=== PATIENT | female | born 1950 | race Caucasian/White ===

== ENCOUNTER → 2016-11-28 | Outpatient (CLI) | payer MEDICARE, OTHER ==
[~2016-11-28] MED LIST: ALLO100T; ATOR1TAB21; BAYETAB2 PO; CEPH500C; CLEO300C2 PO; DOXY100C37 PO; LISI-538; LOSA100T36; METH2.5TA; OMEP40CA2; PRED20TA; ZETI10TA30; ZYRT10TA2
[2016-11-28 18:40] LABS: BASO # 0.1 K/mm3 (0.0-0.2); BASO % 0.9 % (0.0-1.0); EOS # 0.5 K/mm3 (0.0-0.50); EOS % 5.1 % (0.0-3.0); LYMPH # 2.7 K/mm3 (1.5-4.5); LYMPH % 28.3 % (24.0-44.0); MEAN CORPUSCULAR HEMOGLOBIN 29.5 pg (27.0-33.0); MEAN CORPUSCULAR HGB CONC 32.7 g/dl (32.0-36.5); MEAN CORPUSCULAR VOLUME 90.3 fl (80.0-96.0); MONO # 0.7 K/mm3 (0.0-0.8); MONO % 7.5 % (0.0-5.0); NEUTROPHILS # 5.1 K/mm3 (1.8-7.7); NEUTROPHILS % 56.5 % (36.0-66.0); RED CELL DISTRIBUTION WIDTH 14.4 % (11.5-14.5); WHITE BLOOD COUNT 8.9 K/mm3 (4.0-10.0)
[2016-11-28 19:34] LABS: ALBUMIN 3.5 GM/DL (3.2-5.2); ALBUMIN/GLOBULIN RATIO 0.97 (1.00-1.93); ALKALINE PHOSPHATASE 93 U/L (45-117); ALT/SGPT 22 U/L (12-78); ANION GAP 9 MEQ/L (8-16); AST/SGOT 19 U/L (15-37); BILIRUBIN,TOTAL 0.3 MG/DL (0.2-1.0); BLOOD UREA NITROGEN 13 MG/DL (7-18); CALCIUM LEVEL 8.6 MG/DL (8.8-10.2); CARBON DIOXIDE LEVEL 25 MEQ/L (21-32); CHLORIDE LEVEL 110 MEQ/L (98-107); CREATININE FOR GFR 0.96 MG/DL (0.55-1.02); GLOMERULAR FILTRATION RATE > 60.0 (>45); GLUCOSE, FASTING 118 MG/DL (80-110); SODIUM LEVEL 144 MEQ/L (136-145); TOTAL PROTEIN 7.1 GM/DL (6.4-8.2)
== END ==
LOC: M WUC 14:29
PROVIDERS: ATTEND Internal Medicine
DX: M45.9 Ankylosing spondylitis of unspecified sites in spine (principal)

== ENCOUNTER → 2016-12-22 | Outpatient (CLI) | payer MEDICARE, OTHER ==
[2016-12-22 20:17] LABS: CALCIUM LEVEL 8.6 MG/DL (8.8-10.2); GLOMERULAR FILTRATION RATE 58.7 (>45); POTASSIUM SERUM 4.2 MEQ/L (3.5-5.1)
== END ==
LOC: M WUC 16:28
PROVIDERS: ATTEND Physician Assistant
DX: N39.0 Urinary tract infection, site not specified (principal)

== ENCOUNTER → 2016-12-26 | Outpatient (CLI) | payer MEDICARE, OTHER ==
[2016-12-26 20:01] LABS: ALBUMIN 3.5 GM/DL (3.2-5.2); ALBUMIN/GLOBULIN RATIO 0.95 (1.00-1.93); BILIRUBIN,TOTAL 0.2 MG/DL (0.2-1.0); CALCIUM LEVEL 8.1 MG/DL (8.8-10.2); CREATININE FOR GFR 1.19 MG/DL (0.55-1.02); POTASSIUM SERUM 3.8 MEQ/L (3.5-5.1); TOTAL PROTEIN 7.2 GM/DL (6.4-8.2)
[2016-12-26 20:06] LABS: BASO # 0.1 K/mm3 (0.0-0.2); BASO % 0.8 % (0.0-1.0); EOS # 0.5 K/mm3 (0.0-0.50); EOS % 5.2 % (0.0-3.0); LYMPH # 2.7 K/mm3 (1.5-4.5); LYMPH % 26.6 % (24.0-44.0); MEAN CORPUSCULAR HEMOGLOBIN 30.4 pg (27.0-33.0); MEAN CORPUSCULAR HGB CONC 33.4 g/dl (32.0-36.5); MONO # 0.8 K/mm3 (0.0-0.8); MONO % 7.8 % (0.0-5.0); NEUTROPHILS # 5.7 K/mm3 (1.8-7.7); NEUTROPHILS % 56.4 % (36.0-66.0); RED CELL DISTRIBUTION WIDTH 14.9 % (11.5-14.5); WHITE BLOOD COUNT 10.1 K/mm3 (4.0-10.0)
== END ==
LOC: M WUC 17:28
PROVIDERS: ATTEND Internal Medicine
DX: M45.9 Ankylosing spondylitis of unspecified sites in spine (principal)

== ENCOUNTER → 2017-01-04 | Outpatient (CLI) | payer MEDICARE, OTHER ==
[2017-01-04 17:35] LABS: BASO # 0.1 K/mm3 (0.0-0.2); BASO % 0.7 % (0.0-1.0); EOS # 0.5 K/mm3 (0.0-0.50); EOS % 4.6 % (0.0-3.0); LYMPH % 26.2 % (24.0-44.0); MEAN CORPUSCULAR HEMOGLOBIN 30.1 pg (27.0-33.0); MEAN CORPUSCULAR HGB CONC 32.7 g/dl (32.0-36.5); MONO # 0.8 K/mm3 (0.0-0.8); MONO % 6.9 % (0.0-5.0); NEUTROPHILS # 6.9 K/mm3 (1.8-7.7); NEUTROPHILS % 59.7 % (36.0-66.0); WHITE BLOOD COUNT 11.6 K/mm3 (4.0-10.0)
== END ==
LOC: M WUC 16:16
PROVIDERS: ATTEND Internal Medicine
DX: M35.01 Sjogren syndrome with keratoconjunctivitis (principal)

== ENCOUNTER → 2017-01-23 | Outpatient (CLI) | payer MEDICARE, OTHER ==
[2017-01-23 17:38] LABS: BASO # 0.1 10^3/uL (0.0-0.2); BASO % 0.8 % (0.0-1.0); EOS # 0.5 10^3/uL (0.0-0.50); EOS % 5.6 % (0.0-3.0); IMMATURE GRANULOCYTE % 0.4 % (0-0); LYMPH # 2.6 10^3/uL (1.5-4.5); LYMPH % 26.8 % (24.0-44.0); MEAN CORPUSCULAR HEMOGLOBIN 28.9 pg (27.0-33.0); MONO % 11.4 % (0.0-5.0); NEUTROPHILS # 5.3 10^3/uL (1.8-7.7); RED CELL DISTRIBUTION WIDTH 16.4 % (11.5-14.5); WHITE BLOOD COUNT 9.6 10^3/uL (4.0-10.0)
[2017-01-23 17:49] LABS: MONO # 1.1 10^3/uL (0.0-0.8)
[2017-01-23 19:23] LABS: ALBUMIN 3.6 GM/DL (3.2-5.2); ALBUMIN/GLOBULIN RATIO 1.06 (1.00-1.93); BILIRUBIN,TOTAL 0.3 MG/DL (0.2-1.0); CALCIUM LEVEL 8.6 MG/DL (8.8-10.2); CREATININE FOR GFR 1.02 MG/DL (0.55-1.02); GLOMERULAR FILTRATION RATE 57.4 (>45); POTASSIUM SERUM 3.9 MEQ/L (3.5-5.1)
== END ==
LOC: M WUC 15:09
PROVIDERS: ATTEND Internal Medicine
DX: M45.9 Ankylosing spondylitis of unspecified sites in spine (principal)

== ENCOUNTER → 2017-02-02 | Outpatient (CLI) | payer MEDICARE, OTHER ==
[2017-02-02 18:07] LABS: BASO # 0.1 10^3/uL (0.0-0.2); BASO % 0.5 % (0.0-1.0); EOS # 0.1 10^3/uL (0.0-0.50); EOS % 0.4 % (0.0-3.0); IMMATURE GRANULOCYTE % 0.5 % (0-0); LYMPH # 2.5 10^3/uL (1.5-4.5); LYMPH % 13.2 % (24.0-44.0); MEAN CORPUSCULAR HEMOGLOBIN 29.2 pg (27.0-33.0); MEAN CORPUSCULAR HGB CONC 32.4 g/dl (32.0-36.5); MEAN CORPUSCULAR VOLUME 90.1 fl (80.0-96.0); MONO # 1.3 10^3/uL (0.0-0.8); MONO % 6.9 % (0.0-5.0); NEUTROPHILS # 15.1 10^3/uL (1.8-7.7); NEUTROPHILS % 78.5 % (36.0-66.0); PLATELET COUNT, AUTOMATED 239 10^3/uL (150-450); RED CELL DISTRIBUTION WIDTH 16.8 % (11.5-14.5); WHITE BLOOD COUNT 19.2 10^3/uL (4.0-10.0)
== END ==
LOC: M WUC 16:11
PROVIDERS: ATTEND Physician Assistant
DX: L03.317 Cellulitis of buttock (principal)

== ENCOUNTER 2017-02-04 11:30 | Emergency (ER) | payer MEDICARE, BC, OTHER ==
[~2017-02-04] VITALS: Ht 144.8 cm; Wt 91.1 kg
[2017-02-04] MEDS ORDERED: ALLO100T (11:45)
[2017-02-04] MEDS ORDERED: LISI-538 (11:45)
[2017-02-04] MEDS ORDERED: METH2.5TA (11:45)
[2017-02-04] MEDS ORDERED: ZETI10TA30 (11:45)
[2017-02-04] MEDS ORDERED: LOSA100T36 (11:45)
[2017-02-04] MEDS ORDERED: ZYRT10TA2 (11:45)
[2017-02-04] MEDS ORDERED: OMEP40CA2 (11:45)
[2017-02-04] MEDS ORDERED: ATOR1TAB21 (11:45)
[2017-02-04] MEDS ORDERED: BAYETAB2 PO (11:45)
[2017-02-04] MEDS ORDERED: CEPH500C (11:45)
[2017-02-04] MEDS ORDERED: PRED20TA (11:45)
[2017-02-04] MEDS ORDERED: NS 500 ML IV ONE (12:15)
[2017-02-04 12:41] LABS: BASO # 0.1 10^3/uL (0.0-0.2); BASO % 0.5 % (0.0-1.0); EOS # 0.3 10^3/uL (0.0-0.50); EOS % 1.6 % (0.0-3.0); IMMATURE GRANULOCYTE % 0.5 % (0-0); LYMPH # 1.6 10^3/uL (1.5-4.5); LYMPH % 9.9 % (24.0-44.0); MEAN CORPUSCULAR HEMOGLOBIN 29.7 pg (27.0-33.0); MEAN CORPUSCULAR HGB CONC 33.6 g/dl (32.0-36.5); MEAN CORPUSCULAR VOLUME 88.4 fl (80.0-96.0); MONO # 1.5 10^3/uL (0.0-0.8); NEUTROPHILS # 12.9 10^3/uL (1.8-7.7); NEUTROPHILS % 78.5 % (36.0-66.0); PLATELET COUNT, AUTOMATED 249 10^3/uL (150-450); RED CELL DISTRIBUTION WIDTH 16.5 % (11.5-14.5); WHITE BLOOD COUNT 16.5 10^3/uL (4.0-10.0)
[2017-02-04 13:08] LABS: ALBUMIN 3.3 GM/DL (3.2-5.2); ALBUMIN/GLOBULIN RATIO 0.87 (1.00-1.93); BILIRUBIN,DIRECT 0.2 MG/DL (0.0-0.2); BILIRUBIN,TOTAL 0.4 MG/DL (0.2-1.0); CALCIUM LEVEL 8.7 MG/DL (8.8-10.2); GLOMERULAR FILTRATION RATE 58.7 (>45); POTASSIUM SERUM 3.4 MEQ/L (3.5-5.1); TOTAL PROTEIN 7.1 GM/DL (6.4-8.2)
--- NOTE | 2017-02-04 13:09 | REP ---
ULTRASOUND RIGHT BUTTOCK: Real-time sonographic evaluation of right buttock soft tissues performed. No fluid collection is seen. Edematous changes are visualized in the soft tissues. IMPRESSION: No soft tissue fluid collection in the region of the right buttock. Signed by Cody Guo MD 02/05/2017 07:53 P
[2017-02-04] MEDS ORDERED: LIDOCAINE 1% MDV 20ML VIAL SC ONE (13:15)
[2017-02-04] MEDS ORDERED: CLINDAMYCIN 900 MG in APPROPRIATE DILUENT 1 EA IV ONE (14:30)
[2017-02-04] MEDS ORDERED: CLEO300C2 PO (14:33)
[2017-02-04 16:26] VITALS: BP 163/83
== END 2017-02-04 16:30 | disposition home or self-care (01) ==
LOC: M ED 11:30 → EEVIPCON 11:30 → M ED 16:30
DX: L02.31 Cutaneous abscess of buttock (principal); L03.317 Cellulitis of buttock; I10 Essential (primary) hypertension; E78.00 Pure hypercholesterolemia, unspecified; K21.9 Gastro-esophageal reflux disease without esophagitis; M06.9 Rheumatoid arthritis, unspecified; Z88.0 Allergy status to penicillin; Z88.8 Allergy status to other drugs, medicaments and biological substances

== ENCOUNTER 2017-02-06 13:45 | Emergency (ER) | payer MEDICARE, BC, OTHER ==
[~2017-02-06] VITALS: Ht 144.8 cm; Wt 90.9 kg
[~2017-02-06 13:45] MED LIST changes: -DOXY100C37 PO
[2017-02-06 14:47] LABS: BASO # 0.1 10^3/uL (0.0-0.2); BASO % 1.1 % (0.0-1.0); EOS # 0.6 10^3/uL (0.0-0.50); EOS % 6.2 % (0.0-3.0); LYMPH # 1.9 10^3/uL (1.5-4.5); LYMPH % 20.5 % (24.0-44.0); MEAN CORPUSCULAR HEMOGLOBIN 29.6 pg (27.0-33.0); MEAN CORPUSCULAR VOLUME 89.8 fl (80.0-96.0); MONO # 1.2 10^3/uL (0.0-0.8); NEUTROPHILS # 5.4 10^3/uL (1.8-7.7); NEUTROPHILS % 58.2 % (36.0-66.0); PLATELET COUNT, AUTOMATED 308 10^3/uL (150-450); RED CELL DISTRIBUTION WIDTH 16.6 % (11.5-14.5); WHITE BLOOD COUNT 9.4 10^3/uL (4.0-10.0)
[2017-02-06] MEDS ORDERED: DOXY100C37 PO (15:33)
[2017-02-06 15:55] VITALS: BP 115/66
== END 2017-02-06 16:04 | disposition home or self-care (01) ==
LOC: M ED 13:45
DX: A49.02 Methicillin resistant Staphylococcus aureus infection, unspecified site (principal); L02.31 Cutaneous abscess of buttock

== ENCOUNTER → 2017-04-03 | Outpatient (CLI) | payer MEDICARE, OTHER, BC ==
[~2017-04-03] MED LIST changes: +DOXY100C37 PO
[2017-04-03 13:11] LABS: BASO # 0.1 10^3/uL (0.0-0.2); BASO % 0.6 % (0.0-1.0); EOS # 0.5 10^3/uL (0.0-0.50); EOS % 5.9 % (0.0-3.0); IMMATURE GRANULOCYTE % 0.3 % (0-0); LYMPH # 2.3 10^3/uL (1.5-4.5); LYMPH % 28.6 % (24.0-44.0); MEAN CORPUSCULAR HGB CONC 31.7 g/dl (32.0-36.5); MEAN CORPUSCULAR VOLUME 91.5 fl (80.0-96.0); MONO # 0.6 10^3/uL (0.0-0.8); MONO % 7.4 % (0.0-5.0); NEUTROPHILS # 4.6 10^3/uL (1.8-7.7); NEUTROPHILS % 57.2 % (36.0-66.0); PLATELET COUNT, AUTOMATED 225 10^3/uL (150-450); RED CELL DISTRIBUTION WIDTH 16.3 % (11.5-14.5)
[2017-04-03 13:29] LABS: ALBUMIN 3.6 GM/DL (3.2-5.2); ALBUMIN/GLOBULIN RATIO 1.13 (1.00-1.93); ALKALINE PHOSPHATASE 102 U/L (45-117); ALT/SGPT 30 U/L (12-78); ANION GAP 6 MEQ/L (8-16); AST/SGOT 33 U/L (7-37); BILIRUBIN,TOTAL 0.5 MG/DL (0.2-1.0); BLOOD UREA NITROGEN 15 MG/DL (7-18); CALCIUM LEVEL 8.4 MG/DL (8.8-10.2); CARBON DIOXIDE LEVEL 29 MEQ/L (21-32); CHLORIDE LEVEL 109 MEQ/L (98-107); CREATININE FOR GFR 0.94 MG/DL (0.55-1.02); GLOMERULAR FILTRATION RATE > 60.0 (>45); GLUCOSE, FASTING 128 MG/DL (80-110); POTASSIUM SERUM 3.9 MEQ/L (3.5-5.1); SODIUM LEVEL 144 MEQ/L (136-145); TOTAL PROTEIN 6.8 GM/DL (6.4-8.2); URIC ACID 5.2 MG/DL (2.6-6.0)
== END ==
LOC: M WUC 11:38
PROVIDERS: ATTEND Internal Medicine
DX: M45.7 Ankylosing spondylitis of lumbosacral region (principal)

== ENCOUNTER → 2017-06-04 | Outpatient (REF) | payer MEDICARE, OTHER | LOC: M LAB REF 16:20 | DX: L08.9 Local infection of the skin and subcutaneous tissue, unspecified (principal) | CPT/HCPCS: 87186 ==

== ENCOUNTER → 2017-09-27 | Outpatient (REF) | payer MEDICARE, OTHER | LOC: M WUC 18:40 | DX: R30.0 Dysuria (principal) | CPT/HCPCS: 87186 ==

== ENCOUNTER → 2017-11-06 | Outpatient (REF) | payer MEDICARE, OTHER | LOC: M LAB REF 17:20 | DX: R30.0 Dysuria (principal) | CPT/HCPCS: 87186 ==

== ENCOUNTER → 2017-11-19 | Outpatient (REF) | payer MEDICARE, OTHER ==
[2017-11-19 18:42] LABS: APPEARANCE, URINE HAZY (CLEAR); BACTERIA, URINE AUTO NEGATIVE (NEGATIVE); BILIRUBIN, URINE AUTO NEGATIVE (NEGATIVE); BLOOD, URINE BLOOD NEGATIVE (NEGATIVE); COLOR, URINE YELLOW (YELLOW); GLUCOSE, URINE (UA) AUTO NEGATIVE (NEGATIVE); KETONE, URINE AUTO NEGATIVE (NEGATIVE); LEUKOCYTE ESTERASE, URINE AUTO NEGATIVE (NEGATIVE); MUCUS, URINE SMALL (NEGATIVE); NITRITE, URINE AUTO NEGATIVE (NEGATIVE); PROTEIN, URINE AUTO NEGATIVE (NEGATIVE); RBC, URINE AUTO 2 /HPF (0-3); SPECIFIC GRAVITY URINE AUTO 1.023 (1.002-1.035); SQUAMOUS EPITHELIAL CELL UR AU 2 /HPF (0-6); UROBILINOGEN, URINE AUTO 0.2 mg/dL (0.0-2.0); WBC, URINE AUTO 1 /HPF (0-3)
== END ==
LOC: M SMT 17:10
DX: N39.0 Urinary tract infection, site not specified (principal)
CPT/HCPCS: 81001

== ENCOUNTER → 2017-11-25 | Outpatient (CLI) | payer MEDICARE, OTHER | LOC: M RAD 17:24 | DX: N39.0 Urinary tract infection, site not specified (principal); M54.9 Dorsalgia, unspecified | CPT/HCPCS: 76775 ==

== ENCOUNTER → 2017-11-27 | Outpatient (CLI) | payer MEDICARE, OTHER ==
[2017-11-27 19:32] LABS: ANION GAP 11 MEQ/L (8-16); BLOOD UREA NITROGEN 15 MG/DL (7-18); CALCIUM LEVEL 8.9 MG/DL (8.8-10.2); CARBON DIOXIDE LEVEL 25 MEQ/L (21-32); CHLORIDE LEVEL 105 MEQ/L (98-107); CREATININE FOR GFR 0.94 MG/DL (0.55-1.30); GLOMERULAR FILTRATION RATE > 60.0 (>45); GLUCOSE, FASTING 90 MG/DL (70-100); SODIUM LEVEL 141 MEQ/L (136-145)
== END ==
LOC: M WUC 16:11
DX: N20.0 Calculus of kidney (principal)
CPT/HCPCS: 80048

== ENCOUNTER → 2017-12-04 | Outpatient (CLI) | payer MEDICARE, OTHER ==
[~2017-12-04] MED LIST changes: -ALLO100T; -ATOR1TAB21; -BAYETAB2 PO; -CEPH500C; -CLEO300C2 PO; -DOXY100C37 PO; +ISOVUE-370 76% 100ML VIAL (Q9967) As Ordered; -LISI-538; -LOSA100T36; -METH2.5TA; -OMEP40CA2; -PRED20TA; -ZETI10TA30; -ZYRT10TA2
[2017-12-04 17:48] LABS: APPEARANCE, URINE CLEAR (CLEAR); BACTERIA, URINE AUTO NEGATIVE (NEGATIVE); BILIRUBIN, URINE AUTO NEGATIVE (NEGATIVE); BLOOD, URINE BLOOD NEGATIVE (NEGATIVE); COLOR, URINE YELLOW (YELLOW); GLUCOSE, URINE (UA) AUTO NEGATIVE (NEGATIVE); KETONE, URINE AUTO NEGATIVE (NEGATIVE); LEUKOCYTE ESTERASE, URINE AUTO NEGATIVE (NEGATIVE); MUCUS, URINE SMALL (NEGATIVE); NITRITE, URINE AUTO NEGATIVE (NEGATIVE); PROTEIN, URINE AUTO NEGATIVE (NEGATIVE); RBC, URINE AUTO 1 /HPF (0-3); SPECIFIC GRAVITY URINE AUTO 1.011 (1.002-1.035); SQUAMOUS EPITHELIAL CELL UR AU 1 /HPF (0-6); UROBILINOGEN, URINE AUTO 0.2 mg/dL (0.0-2.0); WBC, URINE AUTO 1 /HPF (0-3)
== END ==
LOC: M RAD 14:21
DX: N28.1 Cyst of kidney, acquired (principal); K76.0 Fatty (change of) liver, not elsewhere classified; K44.9 Diaphragmatic hernia without obstruction or gangrene; N39.0 Urinary tract infection, site not specified; N20.0 Calculus of kidney; Z90.710 Acquired absence of both cervix and uterus
CPT/HCPCS: Q9967

== ENCOUNTER → 2018-01-06 | Outpatient (REF) | payer MEDICARE, OTHER ==
[2018-01-06 13:21] LABS: APPEARANCE, URINE HAZY (CLEAR); BACTERIA, URINE AUTO 1+ (NEGATIVE); BILIRUBIN, URINE AUTO NEGATIVE (NEGATIVE); BLOOD, URINE BLOOD 1+ (NEGATIVE); COLOR, URINE YELLOW (YELLOW); GLUCOSE, URINE (UA) AUTO NEGATIVE (NEGATIVE); KETONE, URINE AUTO NEGATIVE (NEGATIVE); LEUKOCYTE ESTERASE, URINE AUTO 3+ (NEGATIVE); MUCUS, URINE SMALL (NEGATIVE); NITRITE, URINE AUTO NEGATIVE (NEGATIVE); PROTEIN, URINE AUTO NEGATIVE (NEGATIVE); RBC, URINE AUTO 1 /HPF (0-3); SPECIFIC GRAVITY URINE AUTO 1.011 (1.002-1.035); SQUAMOUS EPITHELIAL CELL UR AU 3 /HPF (0-6); UROBILINOGEN, URINE AUTO 0.2 mg/dL (0.0-2.0); WBC, URINE AUTO 22 /HPF (0-3)
== END ==
LOC: M SMT 12:16
DX: N39.0 Urinary tract infection, site not specified (principal)
CPT/HCPCS: 81001

== ENCOUNTER → 2018-01-20 | Outpatient (CLI) | payer MEDICARE, OTHER | LOC: M LAB 12:00 | DX: M54.6 Pain in thoracic spine (principal) | CPT/HCPCS: 72070 ==

== ENCOUNTER → 2018-02-04 | Outpatient (REF) | payer MEDICARE, OTHER | LOC: M SMT 17:07 | DX: N39.0 Urinary tract infection, site not specified (principal) | CPT/HCPCS: 87088; 87186 ==

== ENCOUNTER → 2018-04-08 | Outpatient (REF) | payer MEDICARE, OTHER ==
[~2018-04-08] MED LIST changes: +ALLO100T; +ATOR1TAB21; +BAYETAB2 PO; +CEPH500C; +CLEO300C2 PO; +DOXY100C37 PO; -ISOVUE-370 76% 100ML VIAL (Q9967) As Ordered; +LISI-538; +LOSA100T50; +METH2.5T48; +OMEP40CA2; +PRED20TA; +ZETI10TA30; +ZYRT10CA5
[2018-04-08 16:22] LABS: APPEARANCE, URINE CLEAR (CLEAR); BACTERIA, URINE AUTO NEGATIVE (NEGATIVE); BILIRUBIN, URINE AUTO NEGATIVE (NEGATIVE); BLOOD, URINE BLOOD NEGATIVE (NEGATIVE); COLOR, URINE YELLOW (YELLOW); GLUCOSE, URINE (UA) AUTO NEGATIVE (NEGATIVE); KETONE, URINE AUTO NEGATIVE (NEGATIVE); LEUKOCYTE ESTERASE, URINE AUTO TRACE (NEGATIVE); NITRITE, URINE AUTO NEGATIVE (NEGATIVE); PROTEIN, URINE AUTO NEGATIVE (NEGATIVE); RBC, URINE AUTO 2 /HPF (0-3); SPECIFIC GRAVITY URINE AUTO 1.015 (1.002-1.035); SQUAMOUS EPITHELIAL CELL UR AU 1 /HPF (0-6); UROBILINOGEN, URINE AUTO 0.2 mg/dL (0.0-2.0); WBC, URINE AUTO 1 /HPF (0-3)
[2018-04-08 16:26] LABS: BASO # 0.1 10^3/uL (0.0-0.2); EOS # 0.4 10^3/uL (0.0-0.50); EOS % 5.2 % (0.0-3.0); HEMATOCRIT 37.6 % (36.0-47.0); LYMPH # 1.6 10^3/uL (1.5-4.5); LYMPH % 23.9 % (24.0-44.0); MEAN CORPUSCULAR HEMOGLOBIN 28.4 pg (27.0-33.0); MEAN CORPUSCULAR HGB CONC 31.9 g/dl (32.0-36.5); MEAN CORPUSCULAR VOLUME 88.9 fl (80.0-96.0); MONO # 0.7 10^3/uL (0.0-0.8); MONO % 10.9 % (0.0-5.0); NEUTROPHILS % 58.7 % (36.0-66.0); PLATELET COUNT, AUTOMATED 251 10^3/uL (150-450); RED BLOOD COUNT 4.23 10^6/uL (4.00-5.40); WHITE BLOOD COUNT 6.8 10^3/uL (4.0-10.0)
[2018-04-08 16:55] LABS: ALBUMIN 3.1 GM/DL (3.2-5.2); ALT/SGPT 25 U/L (12-78); BILIRUBIN,TOTAL 0.4 MG/DL (0.2-1.0); BLOOD UREA NITROGEN 14 MG/DL (7-18); CALCIUM LEVEL 8.4 MG/DL (8.8-10.2); CARBON DIOXIDE LEVEL 27 MEQ/L (21-32); CHLORIDE LEVEL 108 MEQ/L (98-107); CREATININE FOR GFR 0.81 MG/DL (0.55-1.30); GLOMERULAR FILTRATION RATE > 60.0 (>45); GLUCOSE, FASTING 90 MG/DL (70-100); POTASSIUM SERUM 3.7 MEQ/L (3.5-5.1); SODIUM LEVEL 144 MEQ/L (136-145); TOTAL PROTEIN 6.4 GM/DL (6.4-8.2)
== END ==
LOC: M SFHCPLAZ 13:41
PROVIDERS: ATTEND Internal Medicine Infectious Disease
DX: N39.0 Urinary tract infection, site not specified (principal)
CPT/HCPCS: 36415; 80053; 81001; 85025; 87086; G0463

== ENCOUNTER → 2018-05-27 | Outpatient (REF) | payer MEDICARE, OTHER | LOC: M SFHCPLAZ 15:45 | PROVIDERS: ATTEND Internal Medicine Infectious Disease | DX: Z22.322 Carrier or suspected carrier of Methicillin resistant Staphylococcus aureus (principal) | CPT/HCPCS: 87081; G0463 ==

== ENCOUNTER → 2018-06-12 | Outpatient (REF) | payer MEDICARE, OTHER ==
[2018-06-12 14:56] LABS: APPEARANCE, URINE CLEAR (CLEAR); BACTERIA, URINE AUTO 1+ (NEGATIVE); BILIRUBIN, URINE AUTO NEGATIVE (NEGATIVE); BLOOD, URINE BLOOD NEGATIVE (NEGATIVE); COLOR, URINE YELLOW (YELLOW); GLUCOSE, URINE (UA) AUTO NEGATIVE (NEGATIVE); KETONE, URINE AUTO NEGATIVE (NEGATIVE); LEUKOCYTE ESTERASE, URINE AUTO NEGATIVE (NEGATIVE); NITRITE, URINE AUTO POSITIVE (NEGATIVE); PROTEIN, URINE AUTO NEGATIVE (NEGATIVE); RBC, URINE AUTO 0 /HPF (0-3); SQUAMOUS EPITHELIAL CELL UR AU 0 /HPF (0-6); UROBILINOGEN, URINE AUTO 0.2 mg/dL (0.0-2.0); WBC, URINE AUTO 2 /HPF (0-3)
== END ==
LOC: M SFHCPLAZ 14:19
PROVIDERS: ATTEND Internal Medicine Infectious Disease
DX: Z22.322 Carrier or suspected carrier of Methicillin resistant Staphylococcus aureus (principal); N39.0 Urinary tract infection, site not specified

== ENCOUNTER 2018-06-26 07:29 | Day surgery (SDC) | payer MEDICARE, BC, OTHER ==
[~2018-06-26] VITALS: Ht 142.2 cm; Wt 75.0 kg
[~2018-06-26 07:29] MED LIST changes: -ALLO100T; +ALLO100T PO; -ATOR1TAB21; +ATOR1TAB21 PO; +BACL10TA2 PO; +DETR1TAB5 PO; +FOLI1TAB11 PO; -METH2.5T48; +METH2.5T48 PO; +MUPI2OI TOP; +NEUR300C PO; +NS 1,000 ML IV ONE; -OMEP40CA2; +OMEP40CA2 PO; +SMZ/TMP PO; -ZETI10TA30; +ZETI10TA30 PO; +bentyl PO; +ziac PO
[2018-06-26] MEDS ORDERED: LIDOCAINE 2% INJ 100 MG/5 ML SDV (FOR ANES.) As Ordered ONE (08:35)
[2018-06-26] MEDS ORDERED: PROPOFOL 500 MG/50 ML VIAL As Ordered ONE (08:35)
--- NOTE | 2018-06-26 08:54 | ROOR ---
Patient Name: Ann Marie Ruggiero Procedure Date: 06/26/2018 8:38 AM Date of : 1950 Age: 67 Room: [facility] Gender: Female Note Status: Finalized Procedure: Upper GI endoscopy Indications: Suspected esophageal reflux Providers: Martin Nolan Jr, MD Referring MD: MIKE SHARMA Requesting Provider: Medicines: Propofol per Anesthesia Complications: No immediate complications. Procedure: Pre-Anesthesia Assessment: - Prior to the procedure, a History and Physical was performed, and patient medications and allergies were reviewed. The patient is competent. The risks and benefits of the procedure and the sedation options and risks were discussed with the patient. All questions were answered and informed consent was obtained. Patient identification and proposed procedure were verified by the physician and the nurse in the pre-procedure area and in the procedure room. Mental Status Examination: alert and oriented. Airway Examination: normal oropharyngeal airway and neck mobility. Respiratory Examination: clear to auscultation. CV Examination: normal. ASA Grade Assessment: II - A patient with mild systemic disease. After reviewing the risks and benefits, the patient was deemed in satisfactory condition to undergo the procedure. The anesthesia plan was to use moderate sedation / analgesia (conscious sedation). Immediately prior to administration of medications, the patient was re-assessed for adequacy to receive sedatives. The heart rate, respiratory rate, oxygen saturations, blood pressure, adequacy of pulmonary ventilation, and response to care were monitored throughout the procedure. The physical status of the patient was re-assessed after the procedure. The Endoscope was introduced through the mouth, and advanced to the second part of duodenum. The upper GI endoscopy was accomplished without difficulty. The patient tolerated the procedure well. Findings: The upper third of the esophagus, middle third of the esophagus and lower third of the esophagus were normal. A small hiatal hernia was present. The cardia, gastric fundus, gastric body, gastric antrum, prepyloric region of the stomach and pylorus were normal. The duodenal bulb, first portion of the duodenum and second portion of the duodenum were normal. Impression: - Normal upper third of esophagus, middle third of esophagus and lower third of esophagus. - VERY Small hiatal hernia. - Normal cardia, gastric fundus, gastric body, antrum, prepyloric region of the stomach and pylorus. - Normal duodenal bulb, first portion of the duodenum and second portion of the duodenum. - No specimens collected. Recommendation: - Discharge patient to home (ambulatory). - Return to primary care physician as previously scheduled. Martin Nolan MD Martin Nolan Jr, MD 06/26/2018 8:53:32 AM This report has been signed electronically. Number of Addenda: 0 Note Initiated On: 06/26/2018 8:38 AM Estimated Blood Loss: Estimated blood loss: none.
--- NOTE | 2018-06-26 09:12 | ROOR ---
Patient Name: Ann Marie Ruggiero Procedure Date: 06/26/2018 8:40 AM Date of : 1950 Age: 67 Room: [facility] Gender: Female Note Status: Finalized Procedure: Colonoscopy Indications: High risk colon cancer surveillance: Personal history of colonic polyps Providers: Martin Nolan Jr, MD Referring MD: MIKE SHARMA Requesting Provider: Medicines: Propofol per Anesthesia Complications: No immediate complications. Procedure: Pre-Anesthesia Assessment: - Prior to the procedure, a History and Physical was performed, and patient medications and allergies were reviewed. The patient is competent. The risks and benefits of the procedure and the sedation options and risks were discussed with the patient. All questions were answered and informed consent was obtained. Patient identification and proposed procedure were verified by the physician and the nurse in the pre-procedure area and in the procedure room. Mental Status Examination: alert and oriented. Airway Examination: normal oropharyngeal airway and neck mobility. Respiratory Examination: clear to auscultation. CV Examination: normal. ASA Grade Assessment: II - A patient with mild systemic disease. After reviewing the risks and benefits, the patient was deemed in satisfactory condition to undergo the procedure. The anesthesia plan was to use moderate sedation / analgesia (conscious sedation). Immediately prior to administration of medications, the patient was re-assessed for adequacy to receive sedatives. The heart rate, respiratory rate, oxygen saturations, blood pressure, adequacy of pulmonary ventilation, and response to care were monitored throughout the procedure. The physical status of the patient was re-assessed after the procedure. The Colonoscope was introduced through the anus and advanced to the cecum, identified by appendiceal orifice and ileocecal valve. The colonoscopy was performed without difficulty. The patient tolerated the procedure well. The quality of the bowel preparation was fair. Findings: The rectum, recto-sigmoid colon, sigmoid colon, descending colon, transverse colon, ascending colon, cecum and appendiceal orifice appeared normal. Impression: - Preparation of the colon was fair. - The rectum, recto-sigmoid colon, sigmoid colon, descending colon, transverse colon, ascending colon, cecum and appendiceal orifice are normal. - No specimens collected. Recommendation: - Discharge patient to home (ambulatory). - Repeat colonoscopy in 5-10 years for screening purposes. Martin Nolan MD Martin Nolan Jr, MD 06/26/2018 9:12:06 AM This report has been signed electronically. Number of Addenda: 0 Note Initiated On: 06/26/2018 8:40 AM Estimated Blood Loss: Estimated blood loss: none.
[2018-06-26 09:45] VITALS: BP 120/67
== END 2018-06-26 09:48 | disposition home or self-care (01) ==
LOC: M OPP 07:29
PROVIDERS: ATTEND Surgery
DX: K44.9 Diaphragmatic hernia without obstruction or gangrene (principal); K92.1 Melena; K58.0 Irritable bowel syndrome with diarrhea; Z86.010 Personal history of colon polyps; K21.9 Gastro-esophageal reflux disease without esophagitis; Z79.82 Long term (current) use of aspirin; Z79.899 Other long term (current) drug therapy; Z88.0 Allergy status to penicillin; Z88.1 Allergy status to other antibiotic agents

== ENCOUNTER → 2018-12-02 | Outpatient (CLI) | payer MEDICARE, BC, OTHER ==
[~2018-12-02] MED LIST changes: -NS 1,000 ML IV ONE; +ZETI10TA16 PO; -ZETI10TA30 PO
[2018-12-02 17:10] LABS: BASO % 0.4 % (0.0-1.0); EOS # 0.1 10^3/uL (0.0-0.50); EOS % 1.2 % (0.0-3.0); HEMATOCRIT 37.8 % (36.0-47.0); HEMOGLOBIN 11.7 g/dl (12.0-15.5); LYMPH # 2.2 10^3/uL (1.5-4.5); LYMPH % 30.4 % (24.0-44.0); MEAN CORPUSCULAR HEMOGLOBIN 27.2 pg (27.0-33.0); MEAN CORPUSCULAR VOLUME 87.9 fl (80.0-96.0); MONO # 0.4 10^3/uL (0.0-0.8); MONO % 4.9 % (0.0-5.0); NEUTROPHILS # 4.6 10^3/uL (1.8-7.7); NEUTROPHILS % 62.8 % (36.0-66.0); PLATELET COUNT, AUTOMATED 180 10^3/uL (150-450); WHITE BLOOD COUNT 7.4 10^3/uL (4.0-10.0)
[2018-12-02 18:17] LABS: ALBUMIN 3.1 GM/DL (3.2-5.2); ALT/SGPT 29 U/L (12-78); BILIRUBIN,TOTAL 0.7 MG/DL (0.2-1.0); BLOOD UREA NITROGEN 13 MG/DL (7-18); CALCIUM LEVEL 8.3 MG/DL (8.8-10.2); CARBON DIOXIDE LEVEL 27 MEQ/L (21-32); CHLORIDE LEVEL 108 MEQ/L (98-107); CREATININE FOR GFR 0.84 MG/DL (0.55-1.30); GLOMERULAR FILTRATION RATE > 60.0 (>39); GLUCOSE, FASTING 80 MG/DL (70-100); POTASSIUM SERUM 2.9 MEQ/L (3.5-5.1); SODIUM LEVEL 145 MEQ/L (136-145); TOTAL PROTEIN 6.3 GM/DL (6.4-8.2); URIC ACID 7.7 MG/DL (2.6-6.0)
== END ==
LOC: M WUC 12:20
PROVIDERS: ATTEND Internal Medicine
DX: M45.6 Ankylosing spondylitis lumbar region (principal)

== ENCOUNTER → 2018-12-04 | Outpatient (CLI) | payer MEDICARE, BC, OTHER ==
[2018-12-04 13:30] LABS: BLOOD UREA NITROGEN 13 MG/DL (7-18); CALCIUM LEVEL 8.6 MG/DL (8.8-10.2); CARBON DIOXIDE LEVEL 28 MEQ/L (21-32); CHLORIDE LEVEL 109 MEQ/L (98-107); CREATININE FOR GFR 0.75 MG/DL (0.55-1.30); GLOMERULAR FILTRATION RATE > 60.0 (>39); GLUCOSE, FASTING 96 MG/DL (70-100); POTASSIUM SERUM 3.5 MEQ/L (3.5-5.1); SODIUM LEVEL 145 MEQ/L (136-145)
== END ==
LOC: M WUC 10:22
PROVIDERS: ATTEND Internal Medicine
DX: E87.6 Hypokalemia (principal)

== ENCOUNTER 2019-03-16 07:08 | Inpatient (IN) | payer MEDICARE, BC, OTHER ==
[~2019-03-16] VITALS: Ht 147.3 cm; Wt 64.6 kg
[2019-03-16] VITALS (18 sets, daily range): BP systolic 98–130; BP diastolic 54–79
[~2019-03-16 07:08] MED LIST changes: -OMEP40CA2 PO; +OMEP40CA97 PO; -PRED20TA; +PRED20TA PO
[2019-03-16] MEDS ORDERED: MYRB25TA PO (07:20)
--- NOTE | 2019-03-16 07:52 | REP ---
Clinical: Acute chest pain . Comparison: None . Findings: The mediastinum and cardiac silhouette are stable and within normal limits for portable technique. The lung quiles are clear without acute consolidation, effusion, or pneumothorax. Skeletal structures are intact. Impression: No acute cardiopulmonary process appreciated. Electronically Signed by Dwain Humphries MD 03/16/2019 07:44 A
[2019-03-16 08:16] LABS: VENOUS BASE EXCESS -8.6 (-2.0-2.0); VENOUS HCO3 15.3 MEQ/L (23.0-27.0); VENOUS O2 SATURATION 60.6 % (60.0-80.0); VENOUS PARTIAL PRESSURE CO2 28.5 mmHg (38.0-50.0); VENOUS PARTIAL PRESSURE O2 35.4 mmHg (30.0-50.0); VENOUS PH 7.347 UNITS (7.330-7.430); VENOUS STANDARD HCO3 16.8 MEQ/L; VENOUS TOTAL CO2 16.2 MEQ/L (24.0-28.0)
[2019-03-16 08:20] LABS: BASO % 0.2 % (0.0-1.0); LYMPH # 1.1 10^3/uL (1.5-5.0); LYMPH % 5.3 % (24.0-44.0); MEAN CORPUSCULAR HEMOGLOBIN 28.7 pg (27.0-33.0); MEAN CORPUSCULAR HGB CONC 31.3 g/dl (32.0-36.5); MEAN CORPUSCULAR VOLUME 91.8 fl (80.0-96.0); MONO # 1.4 10^3/uL (0.0-0.8); NEUTROPHILS # 17.7 10^3/uL (1.5-8.5); NEUTROPHILS % 86.6 % (36.0-66.0); PLATELET COUNT, AUTOMATED 186 10^3/uL (150-450); RED BLOOD COUNT 5.23 10^6/uL (4.00-5.40); WHITE BLOOD COUNT 20.5 10^3/uL (4.0-10.0)
[2019-03-16 08:24] LABS: INR 1.52
[2019-03-16 08:50] LABS: ALBUMIN 3.2 GM/DL (3.2-5.2); BILIRUBIN,DIRECT 0.6 MG/DL (0.0-0.2); BILIRUBIN,TOTAL 1.6 MG/DL (0.2-1.0); CALCIUM LEVEL 9.5 MG/DL (8.8-10.2); CK-MB VALUE MASS 6.6 NG/ML (<3.6); CREATININE FOR GFR 1.71 MG/DL (0.55-1.30); GLOMERULAR FILTRATION RATE 31.4 (>39); MB/CK RELATIVE INDEX 8.8 (< OR =4); POTASSIUM SERUM 4.3 MEQ/L (3.5-5.1); THYROID STIMULATING HORMONE 2.1 uIU/ML (0.358-3.740); TROPONIN I 1.78 NG/ML (< 0.10)
[2019-03-16] MEDS ORDERED: ASPIRIN 81 MG CHEW TABLET PO ONE (09:00)
--- NOTE | 2019-03-16 09:26 | REP ---
Clinical: Trauma. Comparison: 05/30/2014 . Findings: Age-related atrophy with periventricular leukomalacia and microvascular ischemic changes are appreciated. The ventricles and sulci are symmetric. Guo-white differentiation is maintained. There is no evidence for acute intracranial hemorrhage, mass/mass effect, pathology or infarction. No extra-axial fluid collection. Calvarium is intact. Paranasal sinuses and mastoid air cells are clear. Impression: Age related atrophy and microvascular ischemic changes. No acute intracranial hemorrhage, infarction, or mass/mass effect. Electronically Signed by Dwain Humphries MD 03/16/2019 09:18 A
--- NOTE | 2019-03-16 09:29 | REP ---
Clinical: Trauma. Technique: Axial noncontrast images from the skull base to the thoracic inlet with coronal and sagittal re-formations. Findings: Generalized age-related osteopenia and degenerative changes are noted. Alignment is relatively well maintained. Moderate degenerative disc osteophyte complex at C6-7 and C5-6 noted. There is no evidence for acute fracture / compression injury or subluxation. Posterior elements and spinous processes are relatively intact without evidence for acute fracture. Spinal canal is patent. Paravertebral soft tissues are normal. Impression: Generalized age-related degenerative spondylosis. No acute fracture / compression injury or subluxation. Electronically Signed by Dwain Humphries MD 03/16/2019 09:20 A
[2019-03-16] MEDS ORDERED: MED REC COMMENT (10:25)
[2019-03-16] MEDS ORDERED: BAYE500T2 PO (10:25)
[2019-03-16] MEDS ORDERED: NS 500 ML IV ONE (11:15)
[2019-03-16] MEDS ORDERED: cefTRIAXone SOD 2 GM in D5W MINI-BAG PLUS 50 ML IV ONE (11:15)
--- NOTE | 2019-03-16 11:42 | REP ---
Clinical: Pain. Technique: Axial noncontrast images from the lung bases to the pubic symphysis with coronal and sagittal re-formations. Findings: Lung bases are clear. Hiatal hernia noted. Liver, spleen, pancreas, bilateral adrenal glands and kidneys are relatively normal for noncontrast evaluation. Small nonobstructing intrarenal calculi measure up to 2 mm without hydronephrosis or perinephric stranding. Prior cholecystectomy noted. The enteric system is without obstruction or acute inflammatory process. Pelvis demonstrates normal bladder and evidence for prior hysterectomy. No ascites. No free air. No adenopathy. Atherosclerotic changes to the aorta without aneurysm. Musculoskeletal structures demonstrate age-related changes without focal abnormality. Impression: 1. No acute abdominopelvic pathology appreciated. 2. Hiatal hernia. 3. Small nonobstructing nephroliths up to 2 mm. Electronically Signed by Dwain Humphries MD 03/16/2019 11:33 A
--- NOTE | 2019-03-16 11:43 | REP ---
Clinical: Acute chest pain. Technique: Axial noncontrast images from the thoracic inlet to the upper abdomen with coronal and sagittal re-formations. Findings: Lung quiles demonstrate minimal scattered chronic age-related interstitial changes. No acute consolidation, effusion, or pneumothorax. No obvious nodule or mass lesion. No obvious adenopathy. Mediastinum demonstrates atherosclerotic changes to the thoracic aorta and coronary arteries without aortic aneurysm or cardiomegaly. No pericardial effusion. Hiatal hernia noted. Surrounding musculoskeletal structures demonstrate age-related changes without focal abnormality. Impression: 1. No acute mediastinal or pleuroparenchymal process appreciated. Electronically Signed by Dwain Humphries MD 03/16/2019 11:35 A
[2019-03-16] MEDS ORDERED: ACETAMINOPHEN TAB 650MG DOSE (2X325MG) PO PRN (12:30)
[2019-03-16] MEDS ORDERED: NS 1,000 ML IV ONE (14:00)
[2019-03-16] MEDS ORDERED: ONDANSETRON 4MG/2ML VIAL (J2405) IV ONE (14:00)
[2019-03-16] MEDS: HEPARIN SOD (PORCINE) 5000 UNITS/ML VIAL SC SCH ×2 (14:00→22:24)
--- NOTE | 2019-03-16 14:13 | REP ---
Clinical: Trauma. Technique: AP view of the pelvis with neutral and frog lateral views of the bilateral hips. Findings: Generalized age-related changes noted to the pelvis and hips. No acute fracture or dislocation. Impression: No acute fracture or dislocation. Electronically Signed by Dwain Humphries MD 03/16/2019 02:04 P
--- NOTE | 2019-03-16 14:14 | REP ---
Clinical: Trauma. Technique: Internal rotation, external rotation, and Y view of the right and left shoulder. Findings: Generalized age-related degenerative changes are appreciated bilaterally. No acute fracture dislocation noted. Impression: No acute fracture or dislocation. Electronically Signed by Dwain Humphries MD 03/16/2019 02:05 P
[2019-03-16 15:07] LABS: INR 1.73
--- NOTE | 2019-03-16 15:32 | HPEPDOC ---
General Date of Admission Mar 16, 2019 at 12:29 Date of Service: Mar 16, 2019 Other Providers MIKE Ray (PCP), Dr. Lincoln Waller (Tooling Mechanic) Attending Physician: TOBIAS GARCIA MD Chief Complaint The patient is a 68-year-old female admitted with a reason for visit of Cor Pulmonale,Lactic Acid Acidosis. Source: Patient, Family Exam Limitations: No limitations Timing/Duration: Week(s), Getting worse Severity: Moderate Associated Symptoms: Chest Pain, Loss of appetite, Nausea, Weakness, Dizziness, Mechanical fall History of Present Illness 68 yo woman with a history of Sjogren, Ankylosing spondylitis on methotrexate and intermittently on prednisone (last dose 02/06/2019), fibromylagia, frequent UTIs, HTN, HLD, GERD who presented with acute chest pain of a few days that began shortly after a fall that occured a few days prior to presentation. Ms. Ruggiero and her family report that she has been increasingly weak over months, has been having poor PO due to changes in taste and texture of food with prior pain in her mouth, with a resultant approximately 20 lbs weight loss over 6 months, dizziness with position changes, frequent UTIs, and frequent traumatic mechanical falls without loss of consciousness. She denies any recent fever, chills, dysuria, cough, congestion, rhinorrhea, headaches, chest pain prior to the fall, palpitations, or changes to her chronic diffuse body pain. She has chronic cold intolerance for which she is always in her electric blanket at home with minimal ambulation and has had gradual worsening in generalized weakness. Of note, her methotrexate dose has not changed in a very long time, but sometimes gets intermittent steroids per her PCP for weakness and feeling poorly that has traditionally helped, for which the last day of her very last taper was 02/06/2019. She otherwise denies a history of known CAD, heart failure, PVD, history of documented stroke, asymmetric weakness, history of blood clots, lower extremity edema, dyspnea with exertion or orthopnea. In the ED her initial vitals were BP 122/67, HR 75, RR 16, T 98.2, saturating 98% on room air comfortably. Her exam per ED physician was notable for reproducible L chest pain with palpation and position changes and bruising on left elbow. shoulder and hip. She was otherwise comfortable when she is still. Initial work up was notable for leukocytosis to 20.5 (last prior in was 7.4) with 86% PMNs, lactate 10.2, H/H 15/48, Cr 1.71 (last prior was 0.76), Bicarb of 18, ABG with pH of 7.43 with a pCO2 of 21.6, AST 98 ( last prior was 21), ALT 45, alk phos 150, INR 1.52, troponin 1.78, proBNP 19043, TSH 2.1, sinus tachycardia on EKG without acute ischemic signs, CXR without yajaira pulmonary congestion, cardiomegaly or opacities, non contrast CT C/A/P without yajaira acute pathology and non contrast CT head without hemorrhage or masses. Given her troponinemia and elevated proBNP without yajaira volume overload and no prior history of CHF a TTE ordered and is pending and LE doppler venous US was also ordered given she could not receive contrast for a CTA. While in the ED she was given 500cc bolus of fluids, had blood cultures drawn and given empiric ceftriaxone. While in the ED, on attempt to get up to urinate, she collapsed and had a brief unresponsive episode for approximate a few seconds during which her BP was SBP 80s, when she tried to get up. She returned shortly after to AOx3, sinus tachycardia on telemetry and was given 1L NS bolus and zofran for acute dry heaving with good effect. She is now being admitted to the PCU for suspected severe sepsis without a clear source at this time with suspicion of methotrexate toxicity in the setting of volume depletion with reduced clearance and JUAN R, hepatoxicity and possible pericarditis with ongoing investigations. Home Medications Scheduled Allopurinol (Allopurinol) 100 Mg Tab, 100 MG PO QHS, (Reported) Atorvastatin Calcium (Atorvastatin Calcium) 20 Mg Tab, 20 MG PO QHS, (Reported) Baclofen (Baclofen) 10 Mg Tab, 10 MG PO QHS, (Reported) Ezetimibe (Zetia) 10 Mg Tab, 10 MG PO QHS, (Reported) Folic Acid (Folic Acid) 1 Mg Tab, 1 MG PO QHS, (Reported) Gabapentin (Neurontin) 300 Mg Cap, 300 MG PO QHS, (Reported) Methotrexate Sodium (Methotrexate) 2.5 Mg Tab, 15 MG PO QWEEK, (Reported) Saturday Mirabegron (Myrbetriq) 25 Mg Tab.er.24h, 25 MG PO QHS, (Reported) Omeprazole (Omeprazole) 40 Mg Cap, 40 MG PO QHS, (Reported) Scheduled PRN Aspirin/Caffeine (Galina Back-Body 500-32.5 mg) 1 Each Tablet, 1 EACH PO QHS PRN for PAIN, (Reported) Prednisone (Prednisone) 20 Mg Tab, 20 MG PO for PAIN, (Reported) Miscellaneous Medications [Med Rec Comment] , (Reported) NO MEDS TAKEN FOR LAST 2 WEEKS, UNABLE TO KEEP ANYTHING DOWN Allergies Coded Allergies: Penicillins (Verified Allergy, Intermediate, Rash, 03/16/19) linezolid (Verified Allergy, Intermediate, Rash, Vomitting, 03/16/19) meperidine (Verified Adverse Reaction, Intermediate, Hallucinations, Vomitting, 03/16/19) Past Medical History Medical History Sjogren's Ankylosing spondylitis Patient reported rheumatoid arthritis (not reported by PCP on our conversation) Osteoarthritis Fibromyalgia Gout GERD Hypertension Hyperlipidemia Frequent UTIs EMR report of dementia Depression IBS History of soft tissue MRSA infections Surgical History Right wrist repair Cholecystectomy Hysterectomy Routine colonoscopies EGD Bladder cystoscopy Family History Significant Family History: No pertinent family hx Social History * Smoker: Denies Alcohol: Denies Drugs: denies Recent Travel/Sick Contacts: Denies: Recent travel, Recent sick contacts Psychosocial History: Depression Lives at home with her , spends most of her time in her chair and bed in a warm electric blanket, minimally ambulatory. A-FIB/CHADSVASC A-FIB History Current/History of A-Fib/PAF?: No Current PO Anticoag Therapy: No Age/Risk Factor Scoring CHADSVASC: CHADSVASC Response (Comments) Value Age Risk Factor Age 65-74 years old 1 Gender Risk Factor Female 1 Hx of CHF No 0 Hx of HTN Yes 1 Hx of Stroke/TIA/or VTE No 0 Hx of Diabetes No 0 Hx of Vascular Disease No 0 Total 3 Treatment Treatment ordered: NONE Reason Anticoagulant not given: Not indicated/[id number] Review of Systems Constitutional: Reports: Weakness, Fatigue, Weight Loss; Denies: Chills, Fever, Malaise, Night Sweats, Other Eyes: Denies: Pain, Vision change ENT: Reports: Other Symptoms (change in taste and food texture sensation); Denies: Head Aches, Ear Pain, Dysphagia, Sinus Congestion, Post Nasal Drip, Sore Throat Skin: Denies: Rash, Lesions, Breakdown Pulmonary: Reports: Pleuritic Chest Pain; Denies: Dyspnea, Cough Cardiovascular: Reports: Chest Pain, Lt Headedness (feels dizzy with position changes); Denies: Palpitations, Orthopnea, Paroxysmal Noc. Dyspnea, Edema Gastrointestinal: Reports: Nausea; Denies: Vomiting, Abdominal Pain, Diarrhea, Constipation, Melena, Hematochezia Genitourinary: Denies: Dysuria, Frequency, Incontinence, Hematuria, Retention Hematologic: Denies: Bruising, Bleeding Excessively, Enlarged Lymph Nodes Endocrine: Reports: Cold Intolerance; Denies: Polydipsia, Polyphagia, Polyuria Musculoskeletal: Reports: Neck Pain, Back Pain, Shoulder Pain, Arm Pain, Hand Pain, Leg Pain, Foot Pain, Joint Pain, Muscle Pain, Other Symptoms (History of diffuse pain with hyperalgesia) Neurological: Reports: Weakness; Denies: Numbness, Incoordination, Change in speech, Confusion, Seizures Psych: Reports: Mood Normal; Denies: Depression, Memory Issues Physical Examination General Exam: Positive: Alert, Cooperative, No Acute Distress Eye Exam: Positive: PERRLA, Conjunctiva & lids normal, EOMI; Negative: Sclera icteric ENT Exam: Positive: Atraumatic, Mucous membr. moist/pink, Pharynx Normal Neck Exam: Positive: Supple; Negative: JVD, thyromegaly, +2 carotid pulse wo bruit, Lymphadenopathy Chest Exam: Positive: Clear to auscultation, Normal air movement Heart Exam: Positive: Rate Normal, Regular Rhythm, Normal S1, Normal S2; Negative: Murmurs, Rubs Telemetry: Positive: No significant arrhythmia Abdomen Exam: Positive: Normal bowel sounds, Soft; Negative: Tenderness, Hepatospenomegaly Extremity Exam: Positive: Normal pulses; Negative: Clubbing, Cyanosis, Edema Skin Exam: Positive: Nl turgor and temperature (cool feet but, pink and with good DP pulses bilaterally), Other skin issue (bruising on left elbow, with a scab, as well as bruising on left shoulder and left hip); Negative: Rash, Breakdown, Lesion, Pruritus Neuro Exam: Positive: Normal Speech, Strength at 5/5 X4 ext (4/5 strength throughout, no asymmetry), Normal Tone, Sensation Intact, Cranial Nerves 3-12 NL, Reflexes 2+ Psych Exam: Positive: Mental status NL, Mood NL, Oriented x 3 Vital Signs Vital Signs Date Time Temp Pulse Resp B/P (MAP) Pulse Ox O2 Delivery O2 Flow Rate FiO2 03/16/19 13:02 101 126/70 (88) 98 03/16/19 07:21 99.7 18 Room Air Laboratory Data Labs 24H Laboratory Tests 2 03/16/19 07:59: Immature Granulocyte % (Auto) 0.9, Neutrophils (%) (Auto) 86.6H, Lymphocytes (%) (Auto) 5.3L, Monocytes (%) (Auto) 7.0H, Eosinophils (%) (Auto) 0.0, Basophils (%) (Auto) 0.2, Neutrophils # (Auto) 17.7H, Lymphocytes # (Auto) 1.1L, Monocytes # (Auto) 1.4H, Eosinophils # (Auto) 0.0, Basophils # (Auto) 0.0, Nucleated Red Blood Cells % (auto) 0.0, Prothrombin Time 18.0H, Prothromb Time International Ratio 1.52, Anion Gap 18H, Glomerular Filtration Rate 31.4L, Calcium Level 9.5, Total Bilirubin 1.6H, Direct Bilirubin 0.6H, Aspartate Amino Transf (AST/SGOT) 98H, Alanine Aminotransferase (ALT/SGPT) 45, Alkaline Phosphatase 150H, Total Creatine Kinase 75, Creatine Kinase MB 6.6H, Creatine Kinase MB Relative Index 8.80H, Troponin I 1.78*H, NP-Ojh-I-Type Natriuretic Peptide 40821O, Total Protein 7.0, Albumin 3.2, Albumin/Globulin Ratio 0.84L, Thyroid Stimulating Hormone (TSH) 2.100 03/16/19 08:11: Blood Gas Bicarbonate Standard 16.8, Venous Blood pH 7.347, Venous Blood Partial Pressure CO2 28.5L, Venous Blood Partial Pressure O2 35.4, Venous Blood Total Carbon Dioxide 16.2L, Venous Blood HCO3 15.3L, Venous Blood Oxygen Saturation 60.6, Venous Blood Base Excess -8.6L 03/16/19 09:05: Lactic Acid Level 10.2*H 03/16/19 10:42: POC pH (Misc Panel) 7.432, POC Base Excess (Misc Panel) -10.0L, POC Saturated Percent O2 (Misc) 96, POC pO2 (Misc Panel) 74.0L, POC pCO2 (Misc Panel) 21.6L, POC HCO3 (Misc Panel) 14.4L, POC Total CO2 (Misc Panel) 15.0L CBC/BMP Laboratory Tests 03/16/19 07:59 Microbiology Microbiology 03/16/19 Blood Culture, Received Pending 03/16/19 Blood Culture, Received Pending Assessment/Plan 68 you woman with a Sjogren's and ankylosing spondylitis on methotrexate with intermittent steroids, fibromyalgia, gout, frequent UTIs, HTN, HLD who presented with left chest pain in the setting of recent mechanical falls in the setting of progressive weakness with classic MSK pain on exam, in the setting of poor PO with associated orthostasis and found to have neutrophilic leukocytosis, well compensated severe lactic acidosis, JUAN R, transaminitis with elevated INR and troponinemia with elevated proBNP, now admitted for presumed severe sepsis, dehydration with possible methotrexate toxicity. Leukocytosis with lactic acidosis: Likely 2/2 to severe sepsis, though source remains elusive at this time. Last took steroids 1month ago, has a history of frequent UTIs, nad has a history of poor PO with likely dehydration. -s/p 1.5L fluids with +orthostatic vitals signs -Follow up TTE and place on maintenance fluids at 125cc/hr -continue empiric ceftriaxone for now -follow up blood cultures -obtain UA with urine culture given the history of frequent UTIs -CT C/A/P without yajaira pathology to suggest abdominal or chest pathology at this time -Q4H lactate for trending Chest pain with troponinemia and elevated proBNP: -EKG without ST changes at this time, with sinus tachycardia, repeat if she develops symptoms -continue telemetry -s/p ASA 325 without much change to her chest wall pain -Follow up TTE, given no history of heart failure and no acute ischemic signs on EKG and atypical chest pain, suspect that they may be MSK pain with concomitant pericarditis? -LE dopplers to r/o DVT as proxy study for potential PE given JUAN R and could not perform CTA JUAN R: Likely a combination of prerenal volume depletion and possible methotrexate toxicity and crystallization in the setting of acidic urine 2/2 infection thereby reducing methotrexate clearance and increasing risk for systemic toxicity. -s/p 1.5L NS -consider more fluids, for maintenance given borderline normotension with euvolemic examination despite elevated proBNP while waiting for TTE -UA with reflex to culture -Urine sodium and Cr for FeNa calculation -strict I/Os, and consider renal ultrasound -Avoid nephrotoxic agents Transaminitis and elevated INR: suggestive of a degree of hepatic injury with synthetic dysfunction, possibly secondary to methotrexate toxicity in the setting of poor clearance in the setting of JUAN R with volume depletion. -Hydration as described above -monitor LFTs -hold methotrexate at this time -Avoid hepatotoxic meds, hold statin and zetia Gout: -Continue allopurinol Chronic pain medications: -continue gabapentin, baclofen HLD: -hold Lipitor and zetia for now Overactive bladder: -Hold mirabegron for increased risk of UTIs with a history of frequent UTIs Rheumatologic conditions: Sjogren's, ankylosing spondylitis, history of RA per patient? -hold methotrexate in the setting of dehydration, JUAN R and elevated LFTs -hold on starting steroids given last taken 1m ago with possible sepsis picture nad pending TTE - FYI's PCP and senior cost estimator of admission -Pain well managed at this time Progressive weakness: -PT and OT eval GERD: -continue omeprazole DVT prophylaxis: Heparin [id number] Diet: regular Dispo: PCU Code status: DNI/DNR, MOLST done, in chart, proxy in chart is accurate per our discussion. Plan / VTE VTE Prophylaxis Ordered?: Yes TOBIAS GARCIA MD Mar 16, 2019 15:17
[2019-03-16] MEDS ORDERED: NS 1,000 ML IV STA (16:02)
[2019-03-16 16:45] LABS: FIBRINOGEN 275 MG/DL (221-452)
[2019-03-16] MEDS ORDERED: NS 1,000 ML IV SCH (17:00)
[2019-03-16 17:15] LABS: ALBUMIN 2.8 GM/DL (3.2-5.2); BILIRUBIN,TOTAL 1.2 MG/DL (0.2-1.0); CALCIUM LEVEL 8.6 MG/DL (8.8-10.2); CREATININE FOR GFR 1.93 MG/DL (0.55-1.30); GLOMERULAR FILTRATION RATE 27.3 (>39); POTASSIUM SERUM 4.4 MEQ/L (3.5-5.1); TOTAL PROTEIN 6.1 GM/DL (6.4-8.2); TROPONIN I 1.53 NG/ML (< 0.10)
[2019-03-16 17:18] LABS: D-DIMER QUANT > 4000 ng/ml (<500)
[2019-03-16 19:00] LABS: INR 1.9; PROTHROMBIN TIME 21.5 SECONDS (11.8-14.0)
[2019-03-16] MEDS ORDERED: DOBUTamine HCL 500,000 MCG in IV 1 EA IV SCH (19:30)
--- NOTE | 2019-03-16 19:30 | ECGEPIP ---
[facility] - ED Test Date: 2019-03-16 Pat Name: BARB WHITLOCK Department: Room: - Gender: Female County Assessor: LESLIE : 1950 Requested By: Cinthia Lim Order Number: [id number] Reading MD: Vernon Lock Measurements Intervals [place] Rate: 118 P: MI: 0 QRS: 28 QRSD: 79 T: 60 QT: 326 QTc: 457 Interpretive Statements SINUS TACHYCARDIA INDETERMINATE AXIS LOW QRS VOLTAGE IN PRECORDIAL LEADS INCOMPLETE RIGHT BUNDLE BRANCH BLOCK SIMILAR TO 05/30/14 Electronically Signed on 03-16-2019 19:30:32 EST by Vernon Lock
--- NOTE | 2019-03-16 19:55 | ECHO ---
DATE OF PROCEDURE: 03/16/2019 REFERRING PHYSICIAN: Dr. Joe Dao DESCRIPTION: This was the second of two echocardiogram Doppler studies performed on the patient on the same day. This particular study was a limited echocardiogram Doppler to obtain some additional views and measurements. INDICATION: Heart failure, unspecified. HEIGHT: 4 feet 10 inches WEIGHT: 149 pounds 2D MEASUREMENTS: LVOT: 2.0 cm Right ventricle: 5.2 cm Inferior vena cava: 2.6 cm with marked reduction of respiratory variation. Suggestive of central venous pressure of at least 20 mmHg. DOPPLER MEASUREMENTS: Aortic valve velocity: 146 cm/s LVOT velocity: 101 cm/s LVOT VTI: 10.5 cm Mitral E velocity: 48.8 cm/s Mitral A velocity: 94.3 cm/s Mitral deceleration time: 194 milliseconds No aortic stenosis. No aortic regurgitation. No mitral stenosis. No mitral regurgitation. Severe tricuspid regurgitation. Estimated right ventricle systolic pressure at least 49 mmHg assuming a right atrial pressure of at least 20 mmHg. Very mild pulmonic regurgitation. Pulmonary artery systolic pressure: 54 mmHg by pulmonary acceleration time. DESCRIPTION: Rhythm was sinus. Image quality was fair. This was a limited echocardiogram. CONCLUSIONS: 1. Markedly dilated right ventricle with right ventricle hypertrophy of the right ventricle free wall. Severe hypokinesis (nearly akinetic) right ventricle contraction. Severe reduction in overall right ventricular (RV) systolic function. Hypertrophy of the right ventricle free wall. Severe tricuspid regurgitation. Suggestive of at least moderate elevation of estimated right ventricle systolic pressure and pulmonary artery systolic pressure. Partial flattening of the ventricular septum during diastole in keeping with volume overload of the right ventricle. Marked right atrial dilation. 2. Inferior vena cava plethora with marked reduction of respiratory variation suggestive of elevated central venous pressure of at least 20 mmHg. 3. Small appearing right ventricle with hyperdynamic RV systolic function. Left ventricular ejection fraction (LVEF) 80% by visual estimate. No regional wall motion abnormalities of the right ventricle. Grade 1 LV diastolic dysfunction and/or relative underfilling of the left ventricle secondary to right ventricle pump failure. 4. Moderate aortic valve sclerosis of a 3-cusp aortic valve. No aortic stenosis or regurgitation. 5. Moderate mitral annular calcification. No mitral regurgitation or stenosis. 6. No pericardial effusion. RECOMMENDATIONS: I have discussed this case by telephone with results of the echocardiogram Doppler findings to Dr. Joe Dao. Unfortunately there is very little that cardiology has to offer at this time. My recommendation would be to have the patient seen by pulmonology to assess for any lung disease or vascular lung disease that could cause pulmonary hypertension and right heart failure. Recommend avoidance of hypoxemia. It is possible that this patient might have improvement in right ventricle pump function in response to low dose dobutamine at a starting dose of 2.5 mcg per kilogram per minute IV and provided she does not get tachycardic excessively and responds well clinically to go up as much as 5 mcg per kilogram per minute IV of dobutamine. It is my understanding that the patient has DO NOT RESUSCITATE/Do Not Intubate (DNR/DNI) status and based on the appearance of the echocardiogram, I think that that is quite appropriate.
--- NOTE | 2019-03-16 19:57 | ECHO ---
DATE OF PROCEDURE: 03/16/2019 This is the first of two echocardiograms on this patient. This one was performed the morning of 03/16/2019. REFERRING PHYSICIAN: Rosemarie Key MD INDICATION: Heart failure, unspecified. HEIGHT: 147 cm WEIGHT: 71 kg 2D MEASUREMENTS: Ventricular septum: 1.14 cm Posterior wall: 1.01 cm Left ventricle diastole: 2.2 cm LVOT: 2.0 cm Left atrium: 2.8 cm Aortic root: 1.5 cm Inferior vena cava: 2.2 cm DOPPLER MEASUREMENTS: No aortic regurgitation. No mitral regurgitation. LVOT velocity: 101 cm/s LVOT VTI: 11.3 cm At least moderate tricuspid regurgitation. Estimated right ventricle systolic pressure at least 45 mmHg assuming a right atrial pressure of at least 20 mmHg. Mild pulmonic regurgitation. MITRAL ANNULAR TISSUE DOPPLER: Technically difficult. DESCRIPTION: Rhythm was sinus tachycardia. This was a moderately technically difficult echocardiogram. This is a 2D, M-mode, color flow Doppler and pulse wave Doppler examination that included mitral annular tissue Doppler. CONCLUSIONS: 1. Prominently dilated right ventricle with hypertrophy of the right ventricle free wall. Severe hyperkinesis to akinesis of the right ventricle free wall. Severe reduction and right ventricle systolic function. Marked right atrial dilatation. Structurally normal appearing mitral leaflets. At least moderate tricuspid regurgitation. Suggestive of at least moderate elevation of estimated right ventricle systolic pressure. Prominent moderator band of the right ventricle. 2. Small underfilled appearing left ventricle. Hyperdynamic left ventricle. Left ventricular ejection fraction (LVEF) 80% by visual estimate. No regional wall motion abnormalities of the left ventricle. 3. Moderate aortic valve sclerosis of a three-cuspid aortic valve. No aortic stenosis or regurgitation. 4. Moderate mitral annular calcification. No mitral regurgitation or stenosis. 5. Inferior vena cava plethora. Suggestive of elevated central venous pressure of at least 20 mmHg. 6. Trace pericardial effusion. ADDITIONAL COMMENTS AND RECOMMENDATIONS: Right ventricle failure likely accounts for this patient's elevated NT-proBNP and elevated troponin I levels. Recommend investigation for lung disease as etiologies for pulmonary hypertension.
[2019-03-16] MEDS ORDERED: VANCOMYCIN HCL 1,000 MG, VIAL MATE ADAPTER 1 EACH in D5W 250 ML IV SCH (20:00)
[2019-03-16] MEDS ORDERED: FUROSEMIDE 40 MG/4 ML VIAL (J1940) IV ONE ×2 (20:00→23:00)
[2019-03-16] MEDS: GABAPENTIN 300 MG CAP PO SCH (20:04)
[2019-03-16] MEDS: FOLIC ACID 1 MG TAB PO SCH (20:04)
[2019-03-16] MEDS: OMEPRAZOLE 20 MG CAP PO SCH (20:04)
[2019-03-16] MEDS: BACLOFEN 10 MG TAB PO SCH (20:04)
[2019-03-16] MEDS ORDERED: ALLOPURINOL 100 MG TAB PO SCH (21:00)
[2019-03-16] MEDS: FUROSEMIDE injection 250 MG in D5W 225 ML IV SCH (21:24)
[2019-03-16] MEDS ORDERED: LIDOCAINE 1% MDV 20ML VIAL As Ordered ONE (21:25)
--- NOTE | 2019-03-16 21:35 | PHACANCOPD ---
PHARMACY VANCOMYCIN DOSING Pt Demographics Demographics Patient Age:68 , Weight:68.200 , Gender: female Adjusted Body Weight Date: 03/16/19, Adjusted Body Weight: Kg Events Past 24 Hours Events Past 24 Hours: YES: Diuretic Therapy, Elevation in WBC; NO: Dialysis, Change in CrCl, Fever, Pending Diagnostics, Pending Procedures, Other Vancomycin Vancomycin indication: SEPSIS Vancomycin Target Ranges: 15-20 mcg/ml Vancomycin Load Y/N: Yes Load Dose Date Time Vancomycin Load Dose: 1 gram Date: 03/16/19 Time: 2000 Vancomycin Dose Date: 03/16/19. Current Vancomycin Dose: [ 1 gram q24h ] Intermittent Dosing?: No Labs Labs Vital Signs Label Value Date Time Patient Temperature 97.0 degrees F 03/16/19 1840 Temperature Source Temporal 03/16/19 1840 Patient Temperature 98.2 degrees F 03/16/19 1600 Temperature Source Temporal 03/16/19 1600 Patient Temperature 99.7 degrees F 03/16/19 0721 Temperature Source Oral 03/16/19 0721 Respiratory Rate 20 bpm 03/16/19 1840 Respiratory Rate 18 bpm 03/16/19 1600 Item Value Date Time White Blood Count 20.5 10^3/uL H 03/16/19 0759 Lactic Acid Level 10.2 MMOL/L *H 03/16/19 0905 Lactic Acid Followup at 4 Hours 9.8 MMOL/L *H 03/16/19 1443 Lactic Acid Level 10.4 MMOL/L *H 03/16/19 1830 Creatinine 1.71 MG/DL H 03/16/19 0759 Glomerular Filtration Rate 31.4 L 03/16/19 0759 Creatinine 1.93 MG/DL H 03/16/19 1442 Glomerular Filtration Rate 27.3 L 03/16/19 1442 Micro Microbiology 03/16/19 Urine Culture, Received Pending 03/16/19 Blood Culture, Received Pending 03/16/19 Blood Culture, Received Pending Creatinine Clearance Date:03/16/19. Creatinine Clearance: [ 19.2 mL/min ]. Assessment and Plan Maintaining Current Dose?: Yes Reason for dose change: No Dose Change Pharmacist Note Pharmacist Note Date: 03/16/19. Pharmacist note: 68 year old female presented to [facility] with complaints of chest pains after a previous fall a few days ago. She was subsequently diagnosed with an episode of Cor Pulmonae, with possible sepsis after an elevated lactic acid and white blood cell count. The patient has a history of frequent infections, including UTIs, but does not have a prior history of vancomycin at [facility]. Broad spectrum antibiotic therapy was initiated including meropenem 500mg every 12 hours in addition to vancomycin 1 gram every 24 hours. Due to the patient current renal function, the loading and maintenance dose are the same at 1 gram every 24 hours. A trough to determine steady state was scheduled for 1900 on 03/18/19, prior to the third dose. We will continue to monitor and make adjustments as needed. [facility] Mar 16, 2019 21:35
[2019-03-16] MEDS ORDERED: LIDOCAINE 1% MDV 20ML VIAL SC ONE (23:00)
[2019-03-16] MEDS: MEROPENEM INJ 500 MG in IV 1 EA IV SCH (23:01)
--- NOTE | 2019-03-16 23:49 | ROOPDOC ---
[facility] Report Of Operation Report of Operation DATE OF PROCEDURE: 03/16/19 PREPROCEDURE DIAGNOSES: cor pulmonale with poor access POSTPROCEDURE DIAGNOSES: cor pulmonale PROCEDURE: right IJ central line placement Performed by: Polly Alvarez Attending: Dr. Taylor ANESTHESIA: local ESTIMATED BLOOD LOSS: Approximately 0 mL. COMPLICATIONS: none PROCEDURE NOTE: Consent was obtained prior to the procedure. Indications, risks and benefits were explained to the patient. Procedure was performed in ICU at bedside. DESCRIPTION OF PROCEDURE: The patient was placed in the supine position, was placed in Trendelenburg. The right chest region and neck was prepped with chlorhexidine scrub. The patient was draped in the typical sterile fashion using a full drape. Ultrasonography was employed at bedside. A sterile probe cover was placed over the ultrasound. The medial and lateral head of the sternocleidomastoid were identified, as was the carotid pulse. The internal jugular vein was identified using ultrasound. Anesthesia was achieved over the internal jugular vein on the right using a 1% lidocaine solution. Once anesthetized, an introducer needle was inserted into the internal jugular vein under direct ultrasound visualization. Venous blood was withdrawn, syringe was removed and a guidewire was advanced on to the introducer needle. The guidewire was visualized in the internal jugular vein by ultrasound. A small incision was made in the skin surface with a scalpel, and the introducer needle was exchanged for a dilator over the guidewire. After appropriate dilation was obtained, the dilator was exchanged over the wire for a central venous catheter. The wire was removed, and the catheter was sutured in place. A sterile bandage was placed o valentin the catheter site. The patient tolerated the procedure well without any hemodynamic compromise. At the time of procedure completion, all ports were aspirated and flushed properly. Postprocedure x-ray was performed, which demonstrated adequate positioning of the central venous catheter in the right internal jugular vein. COMPLICATIONS: None. GME ATTESTATION GME ATTESTATION My faculty preceptor for this patient encounter was physically present during the encounter and was fully available. All aspects of the patient interview, examination, medical decision making process, and medical care plan development were reviewed and approved by the faculty preceptor. The faculty preceptor is aware and concurs with the plan as stated in the body of this note and will attest to such by his/her cosignature. I, Darius Taylor, was present for the entirety of the procedure and agree with the procedure note as documented POLLY ALVAREZ DO Mar 16, 2019 23:49 DARIUS TAYLOR MD Mar 17, 2019 10:52
[2019-03-17] VITALS (20 sets, daily range): BP systolic 97–137; BP diastolic 49–81
[2019-03-17 00:29] LABS: INR 2.06
--- NOTE | 2019-03-17 00:44 | CR ---
DATE OF CONSULTATION: 03/16/2019 CRITICAL CARE CONSULT HISTORY OF PRESENT ILLNESS: Ms. Ruggiero is a 68-year-old female with a past medical history of Sjogren's disease, ankylosing spondylitis, rheumatoid and osteoarthritis, fibromyalgia, depression, irritable bowel syndrome, hyperlipidemia, gastroesophageal reflux disease (GERD), post-traumatic stress disorder (PTSD), history of methicillin-resistant Staphylococcus aureus (MRSA) in the past and frequent urinary tract infections (UTIs), who presented initially with a complaint of chest pain for the past few days, which started after she had a fall. The patient reported over the past few months she has been having some episodes of weakness as well as feeling more fatigued and having dizziness and occasional lightheadedness. The patient had approximately two falls in the past few months which she felt were associated with mechanical falls. One of her falls was when she rolled out of bed and the other fall was when she tripped over her dogs. During her fall, she denied any syncopal episodes and did not have any chest pain, shortness of breath or dizziness at those times. However, she does note some dizziness and fatigue with position changes and when she is doing activity around the house. The patient also reports having decreased oral intake in the past few months with approximately a 20-pound weight loss in the past 6 months. She denied any fevers or chills, but she does have some chronic cold intolerance for the past 6 months, which she feels has been worsening. In terms of her chest pain, the patient reports the pain occurred after her fall, and it is somewhat positional in nature. She otherwise had not had any chest pain prior to this. She denied any lower extremity edema or orthopnea and had not noticed any increasing abdominal distension. She denied any nausea or vomiting. She denied noticing any dysuria as well and had not had any increased coughing or wheezing. The patient does have a history of chronic joint pain symptoms for which she will take bursts of prednisone in addition to her chronic methotrexate. Her last prednisone dose was in January. She reports she is not chronically on prednisone. She does also report a history of dry eyes and dry mouth as well as Raynaud's phenomenon. She otherwise denies noticing any rashes or skin lesions. No nodules in the skin. Of note, in the emergency department (ED), the patient was given ceftriaxone empirically as well as a 500 mL normal saline bolus. She had got up to urinate when she collapsed and had a brief syncopal episode where she was unresponsive for a few seconds. Her systolic blood pressure at that time was reportedly in the 80s. Soon afterwards she returned back to her usual baseline mental status and was noted to have sinus tachycardia on telemetry. She was given an additional 1 liter normal saline bolus and then admitted to the intensive care unit (ICU) for further workup. PAST MEDICAL/SURGICAL HISTORY: Sjogren's, ankylosing spondylitis, rheumatoid arthritis, osteoarthritis, fibromyalgia, GERD, gout, hypertension, hyperlipidemia, history of MRSA, frequent UTIs, depression, PTSD, irritable bowel syndrome, right wrist repair, cholecystectomy, hysterectomy, bladder cystoscopy. FAMILY HISTORY. No pertinent family history. SOCIAL HISTORY: Denies previous history of smoking. Denies any alcohol abuse. The patient has dogs and cats at home but has no birds in the home. HOME MEDICATIONS: - allopurinol - atorvastatin - baclofen - Zetia - folic acid - gabapentin - methotrexate 15 mg weekly - Myrbetriq - omeprazole ALLERGIES: To PENICILLIN, LINEZOLID, and MEPERIDINE. PHYSICAL EXAMINATION: Temperature 97, pulse 97, respirations 20, blood pressure 102/56, oxygen saturation (O2 sat) 96% on 2 liters nasal cannula. Intake 1.5 liters. General: The patient is an elderly female, is lying in bed, does not appear to be in acute distress. She is awake and alert and oriented times three. She is not using any accessory muscles for respiration. HEENT: Normocephalic, atraumatic. Pupils are reactive to light bilaterally. Mucous membranes are moist. There is limited mouth opening noted and some fissuring of the skin around the lips. Neck is supple. No palpable adenopathy. Trachea is midline. Cardiovascular is regular rate and rhythm. Normal S1, S2. Unable to appreciate any murmurs clearly. Pulmonary: No wheezes or rhonchi noted. Few crackles at the bases bilaterally. A few scattered crackles. Abdomen is soft, obese, nontender, nondistended. Unable to palpable at palpate any masses. Lower extremities: There is no lower extremity edema noted bilaterally. In her fingers, there is some cyanosis noted as well as swelling of her distal interphalangeal (DIP) joints in her fingers bilaterally. LABORATORY DATA: WBC 20.5, hemoglobin 15.0, platelets 186. Chemistry: Sodium is 144, potassium is 4.4, chloride is 111, bicarbonate is 18, BUN 16, creatinine is 1.93, glucose is 149, total bilirubin is 1.2, AST 158, ALT 75, alkaline phosphatase 145. Troponins initially were 1.78, repeat was 1.53. Lactic acid initially was 10.2, then went to 9.8 and then 10.4. BMP was approximately 20,000. PT 21.5, INR was 1.9. Fibrinogen 275. VBG: pH was 7.347, pCO2 of 28.5, pO2 of 35.4. Microbiology: Urine and blood cultures are pending. UA was positive for leukocyte esterase and WBC as well as for bacteria. IMAGING STUDIES: CT chest on admission showed very minimal subpleural reticulation in the bases of the lung. There was no consolidation or effusion noted. No significant mediastinal adenopathy. There were some atherosclerotic changes of thoracic aorta and coronary arteries. There was a hiatal hernia noted. CT abdomen and pelvis: Small nonobstructing nephrolithiasis without hydronephrosis or perinephric stranding. Prior cholecystectomy noted. No free air noted or ascites. Echocardiogram: Prominently dilated right ventricle with hypertrophy of the right ventricle free wall. There was severe hypokinesis of the right ventricle free wall with severe reduction in the right ventricular (RV) systolic function with marked right atrial dilation. There was at least moderate RV systolic pressure elevation. The left ventricle was under filled and small appearing with a hyperdynamic ejection fraction (EF) of 80%. There was moderate aortic valve sclerosis but no significant stenosis or regurgitation. There was no significant mitral regurgitation or stenosis. Inferior vena cava (IVC) was dilated, suggestive of a central venous pressure (CVP) at least 20 mmHg. There is trace pericardial effusion. ASSESSMENT AND PLAN: - Ms. Ruggiero is a 68-year-old female with a past medical history of ankylosing spondylitis, Sjogren's, hypertension, hyperlipidemia, GERD, fibromyalgia, gout, history of frequent UTIs and MRSA in the past who presented initially with chest pain. She also reports a history in the past few months of weakness and fatigue as well as some dizziness occasionally and lightheadedness. In the ED, the patient also was noted to have a syncopal episode when she attempted to get up to go to the bathroom. The patient was noted to be hypotensive at that time. Her blood pressures otherwise had been stable, and she was noted to have mild tachycardia but was not significantly hypoxic or in any respiratory distress in the ED. She was given 1.5 liters of normal saline as well as started on empiric antibiotics, initially with ceftriaxone and then broadened further. Of note, the patient's echocardiogram showed evidence of severe right ventricular heart failure and given the hypertrophy of the right ventricle, suggests chronic pulmonary hypertension likely with some acute decompensation. Her LV appears to be under filled due to intraventricular dependence with the dilated RV. Her IVC was also markedly dilated suggesting elevated central venous pressure. The patient did have significantly elevated BNP on admission as well as some troponinemia. This is likely from her right-sided heart failure with decreased CO and perfusion. Clinically, she does not appear to have signs of fluid overload; no lower extremity edema, no pleural effusions, no abdominal distension or ascites. On her labs, however, she does have evidence of abnormal transaminitis, which may be from hepatic congestion, or from methotrexate toxicity. She also has elevated lactic acidosis and acute renal failure. Some of her lactic acidosis may be from hypoperfusion with decreased CO from her right sided heart failure and also possibly from methotrexate toxicity. The patient was also noted to have leukocytosis and her UA does appear positive for UTI. This may also be contributing to some of her decompensation in regards to her pulmonary hypertension and right ventricular failure. - In terms of etiologies for her pulmonary hypertension, the patient does not appear to have any significant left-sided heart disease or valvular disease for group 2. She does not have any chronic history of COPD, and she is a nonsmoker, to suggest causes for group 3 pulmonary hypertension. She may potentially have sleep apnea. However, would not normally sees this degree of pulmonary hypertension with just sleep apnea for group 3. The patient denies a history of any of blood clots in the past, has not had any recent travel. Denies any lower extremity edema. However, chronic thromboembolic pulmonary hypertension (CTEPH) is still in the possibility, and she is unable to get any CT angiograms done due to her renal function. Can get a lower extremity duplex, however, to evaluate for any deep vein thrombosis (DVT), although this is less likely a cause. Given her connective tissue disease history with Sjogren's with some findings that may suggest possible scleroderma, there is significant consideration that she may have Group 1 pulmonary arterial hypertension (PAH) as cause for her pulmonary hypertension and right ventricular heart failure. - In terms of management, would hold her off on further fluids. Given the intraventricular dependence, any further fluid boluses will likely cause more displacement and impedance in her left ventricle and have lower cardiac output which was likely the cause of her syncopal episode in the ED. - Therefore, would have to diurese the patient with close monitoring as with too much pre-load reduction she may have difficulty with her RV output with her suspected PAH. - Patient was also started on a low dose of dobutamine as well for inotropic support We do have to monitor her heart rate, however, as worsening tachycardia will also cause worsening filling for her left ventricle and so if she has increasing tachycardia with the dobutamine, will likely need to switch her to milrinone instead. The patient may also benefit from pulmonary vasodilator medications, such as epoprostenol or other prostacyclin analogs. However, will continue to monitor to see if she does not respond well to diuresis before starting those medications. Likewise, other medications such as sildenafil is also in the consideration if we suspect she does have group 1 PAH. - The patient's acute renal failure is likely cardiorenal in the setting of her right ventricular heart failure. Will continue to monitor her renal function with diuresis and her electrolytes and replete as needed. - Continue to monitor her liver function tests (LFTs). Suspect this may also be in the setting of possible hepatic congestion. The patient is also on methotrexate and with her worsening renal function, some of the liver function test abnormalities may also be due to her methotrexate toxicity. - she is coagulopathic likely due to her liver dysfunction. will cont to monitor her coags. - Continue to trend lactic acidosis. Some of this might be a type B lactic acidosis from her methotrexate, but there is also potential that she has some hypoperfusion with her right ventricular heart failure. - Continue with nasal cannula oxygen supplementation. With her pulmonary hypertension, we do want to make sure there is not any hypoxemia, which will also cause increased pulm vasoconstriction and worsening of pulmonary hypertension. - The patient will have a right IJ triple lumen placed for venous access. - Will continue with antibiotics for presumed UTI and followup results of her urine culture and blood cultures to narrow down her antibiotic coverage. she has a hx of MRSA as well. DVT prophylaxis: Heparin. Code status: DO NOT RESUSCITATE/DO NOT INTUBATE (DNR/DNI). TOTAL CRITICAL CARE TIME SPENT NOT INCLUDING PROCEDURES: Approximately 1 hour and 50 minutes. MTDD
[2019-03-17] MEDS ORDERED: CHLOROTHIAZIDE 500 MG VIAL (J1205 PER 1) IV STA (04:56)
[2019-03-17 05:05] LABS: HEMATOCRIT 41.6 % (36.0-47.0); MEAN CORPUSCULAR HEMOGLOBIN 28.3 pg (27.0-33.0); MEAN CORPUSCULAR HGB CONC 30.8 g/dl (32.0-36.5); PLATELET COUNT, AUTOMATED 102 10^3/uL (150-450); RED BLOOD COUNT 4.52 10^6/uL (4.00-5.40)
[2019-03-17 05:06] LABS: HEMOGLOBIN 12.8 g/dl (12.0-15.5)
[2019-03-17 05:16] LABS: INR 2.19; PROTHROMBIN TIME 24.2 SECONDS (11.8-14.0)
[2019-03-17 05:28] LABS: ALBUMIN 2.7 GM/DL (3.2-5.2); BILIRUBIN,TOTAL 1.1 MG/DL (0.2-1.0); CALCIUM LEVEL 8.2 MG/DL (8.8-10.2); CREATININE FOR GFR 1.81 MG/DL (0.55-1.30); GLOMERULAR FILTRATION RATE 29.4 (>39); MAGNESIUM LEVEL 1.9 MG/DL (1.8-2.4); PHOSPHORUS LEVEL 3.3 MG/DL (2.5-4.9); POTASSIUM SERUM 3.7 MEQ/L (3.5-5.1); TOTAL PROTEIN 6.1 GM/DL (6.4-8.2)
[2019-03-17] MEDS: MEROPENEM INJ 500 MG in IV 1 EA IV SCH ×2 (06:05→18:19)
[2019-03-17] MEDS: HEPARIN SOD (PORCINE) 5000 UNITS/ML VIAL SC SCH ×3 (06:13→20:19)
--- NOTE | 2019-03-17 07:25 | REP ---
Clinical: Line placement . Comparison: 03/16/2019 . Findings: Right IJ line with tip in the SVC/right atrium. The mediastinum and cardiac silhouette are stable and within normal limits for portable technique. The lung quiles are clear without acute consolidation, effusion, or pneumothorax. Skeletal structures are intact. Impression: No acute cardiopulmonary process appreciated. Electronically Signed by Dwain Humphries MD 03/17/2019 07:16 A
[2019-03-17] MEDS ORDERED: POTASSIUM CHLORIDE 10 MEQ SR TABLET PO ONE (08:30)
[2019-03-17] MEDS: MILRINONE/DEXTROSE 20 MG in IV 1 EA IV SCH (10:17)
--- NOTE | 2019-03-17 12:00 | IPNPDOC ---
Text Note Date of Service The patient was seen on 03/17/19. NOTE Ms. Ruggiero was seen at bedside this morning and reported no acute events o vernight. She denies any current dizziness, SOB, or cough. She states that her chest pain feels improved and they she has been urinating today after the diuretic treatments. She did not eat breakfast due due to dietary preferences. Per her , she was sleepy and somnolent today (03/17). She denied any overnight fevers, chills, increased SOB or cough, or abdominal pain. Physical Exam: Vitals: See below General: She was sitting up in her hospital bed in no apparent distress. HEENT: Atraumatic, normocephalic. No scleral iscterus. Fair oral dentition noted. No lymphadenopathy appreciated. Respiratory: Mild rales B/L in her lower lobes. Remainder of lung exam unremarkable. CV: +S1, S2. No murmurs, no knocks, no rubs noted. Tachycardic HR in 120-130 range. Irregular heartbeat noted. Abdominal exam: No guarding, organomegaly, bruising or skin lesions noted Extremities: No LE edema. Mild cyanosis noted in her digits. Assessment: This is a 68 year old woman with a pMHx significant for ankylosing spondylitis on MTX and intermittent prednisone, fibromyalgia, recurrent UTI, HTN, and GERD who presented to the ED w/ acute chest pain of a few days duration following a fall, was found to have pronounced right heart failure from pulmonary hypertension and is being treated with diuretics, digoxin and milrinone. Plan: Cardiovascular: -Ms. Ruggiero originally presented to the ER with chest pain following a fall, dizziness and fatigue. After receiving fluid resuscitation for suspected sepsis she syncopized in the ER. She was found to have at least moderate right heart failure 2/2 pulmonary HTN. Etiologies of her pulmonary HTN include Group 1 disease from connective tissue disorder like scleroderma, chronic thromboembolic pulmonary hypertension (CTEPH), and sleep apnea. To rule out connective tissue disease etiologies of pulmonary HTN RACHEL, Scl-70 and Anti-centromere antibody scr eening will be ordered. Dobutamine was started overnight to increased cardiac function and systemic perfusion however, patient developed new atrial tachyarrythmia and so it will be discontinued in favor of Milrinone. Digoxin will be started to rate control her likely new onset atrial fibrillation without losing cardiac contraction. Pending stable blood pressures, will potentially start Revatio for PH. We will continue to diurese patient for her right heart failure with Furosemide 15 mg/hr. She was given dose of diuril overnight and had improved response. Her lactic acidosis has improved with diuresis to 3.6 (was 10.4 on 03/16/2019). Nocturnal oxygenation study will performed inpatient to [facility] for possible AGUSTIN as a etiology of her pulmonary hypertension although less likely as a cause for her severe PH. Finally, LE ultrasound shows B/L DVTs which coincide with patient's decreased mobility pre-admission and possible coagulopathic nature from liver dysfunction . Discussed with hospitalist about increased risks of bleeding with anticoagulation although would like to start anticoagulation at some point. For now would cont with DVT ppx and place IVC filter for her DVT's. Respiratory: -O2 saturation is 93% on 2L Nasal Cannula. She does not complain of SOB or significant cough. Chest CT and X-Ray showed no acute pathological processes and no evidence of pulmonary disease. Due to her pulmonary HTN it is important to ensure O2 saturations > 92% to prevent vasoconstriction of her pulmonary vasculature. Infectious: -Patients WBC count is 19.0 which is down from 20.5 on presentation where her differential showed 86% PMNs. Urinalysis showed +leukocyte esterase w/ 3+ bacteria and 59 WBCs indicating probable UTI. This may have been a exacerbating factor in her original presentation where she met presented with a sepsis picture. She is currently on empiric Vancomycin IV and Meropenem IV due to her history of being MRSA positive. Blood cultures X2 and Urine cultures are pending and will dictate antibiotic de-escalation when available. She currently is afebrile with normal respiratory rate, decreasing lactate, and is normotensive. GI: -Ms. Zaldivar transaminitis has worsened overnight with AST:ALT of 643:330 respectively (increased from 158:75 on 03/16/2019). Her ALP is 183 which is up from 145 on 03/17/2019). Her transaminitis is likely secondary to hepatic congestion from her right heart failure. Currently we are planning on monitoring her LFTs daily to monitor for improvement as we manage her right heart failure. She is currently coagulopathic due to liver dysfunction -will continue to monitor coags. She is currently on Prilosec for stress ulcer prophylaxis Renal: -Ms. Zaldivar renal function held stable overnight with BUN:Creatinine of 21:1.8 and a GFR of 29.4. She did receive 3.5 L of normal saline yesterday due to her sepsis-like presentation which may have decreased her overall perfusion due to her hearts inability to compensate for increased intravascular volume. Therefore we will continue to diurese her with Furosemide 15 mg/hr and monitor h er renal status. As her right heart failure is managed and her fluid levels are optimized she will hopefully have better renal perfusion and overall renal function. She was given a 500mg injection of Diuril overnight in addition to the Furosemide and was responsive having produced 630 mL of urine by noon. DVT prophylaxis: Heparin 5000U SC Q8H Stress Ulcer Prophylaxis: Omeprazole 40 mg QHS PO Code Status: Patient is DNR & DNI VS,Erika, I+O VS, Erika, I+O Laboratory Tests 03/16/19 14:42 03/17/19 04:50 Vital Signs Date Time Temp Pulse Resp B/P (MAP) Pulse Ox O2 Delivery O2 Flow Rate FiO2 03/17/19 10:00 98.5 121 16 107/56 (73) 90 Nasal Cannula 2.0 I&O- Last 24 Hours up to 6 AM 03/17/19 06:00 Intake Total 2330.4 ml Output Total 185 ml Balance 2145.4 ml JACK ROPER OMS-3 Mar 17, 2019 12:00 DARIUS MELCHOR MD Mar 18, 2019 09:44
--- NOTE | 2019-03-17 12:05 | CR ---
DATE OF CONSULTATION: 03/17/2019 REQUESTING PHYSICIAN: Dr. Joe Dao CONSULTING PHYSICIAN: Dr. Ibarra REASON FOR CONSULTATION: Management of acute renal failure and optimization of volume status in this patient with heart failure. CHIEF COMPLAINT: The patient presented to the hospital with weakness, dizziness and loss of appetite. HISTORY OF PRESENT ILLNESS: Ann Marie Ruggiero is a 68-year-old female with a past medical history of chronic kidney disease stage II with a baseline creatinine of 0.7 as of November 2018, history of Sjogren's syndrome, ankylosing spondylitis off and on methotrexate treatment, last dose was in February 06, 2019, multiple other comorbidities as mentioned below. She presented to the hospital on March 16, 2019 with progressive weakness, inability to walk, poor appetite, multiple mechanical falls. Her reported that she was too weak, that she could not even walk to the car and they had to call the ambulance to bring the patient to the emergency room. The patient was normotensive in the emergency room. She was afebrile. She did have a leukocytosis with a WBC of 20.5. She had elevated troponin and elevated Pro-BNP, but clinically she did not look volume overloaded. She was given 500 mL of normal saline bolus in the emergency room. Blood cultures were drawn and while she was in the emergency room she got up to go to the restroom and she collapsed and had an episode of unresponsiveness. Her blood pressure dropped to systolic of 80s. She was given more IV fluids 1 liter bolus. She was admitted to progressive care unit under the hospitalist service and because of this patient had methotrexate toxicity and volume depletion, she was given IV fluid hydration. She was given broad spectrum IV antibiotics. Lactic acidosis initially was 10.2 and despite all the IV fluid hydration, her lactic acid kept on going up and in the evening was 10.4. She did get a bedside 2-D echocardiogram done and echocardiogram showed severe hypokinesis to akinesis of the right ventricle and cor pulmonale. The patient was transferred to intensive care unit (ICU). The case was discussed with myself by the hospitalist over night. Decision was made to start the patient on dobutamine infusion and Lasix drip. She was given a dose of Lasix bolus 60 mg IV and started on Lasix 10 mg an hour. She was also started on dobutamine 0.3 mcg/kg per minute. Overnight, the patient remained oliguric and early in the morning to give her a dose of Diuril 500 mg IV and increased her dobutamine infusion to 0.5 mcg/kg per minute. I saw and evaluated the patient today morning at the bedside. Her was also present at the bedside. The patient reported that she is feeling slightly better today as compared with yesterday. Her blood pressures are better. She is starting to make more urine. Lactic acid is improving. PAST MEDICAL HISTORY Past medical history of Sjogren's syndrome, ankylosing spondylitis, normal renal function with a baseline creatinine of 0.7, osteoarthritis, fibromyalgia, chronic gout, gastroesophageal reflux disease, hypertension, hyperlipidemia, history of frequent urinary tract infection (UTI) in the past, depression, irritable bowel syndrome, history of methicillin resistant Staphylococcus aureus (MRSA) blood infections. The patient did not give any history of pulmonary hypertension or heart failure before. PAST SURGICAL HISTORY: History of right wrist repair, cholecystectomy in the past, hysterectomy in the past, colonoscopies, esophagogastroduodenoscopy (EGD) and bladder cystoscopy ALLERGIES: She is allergic to PENICILLINS, LINEZOLID, IMIPRAMINE. FAMILY HISTORY: No significant family history of end-stage renal disease requiring hemodialysis. SOCIAL HISTORY: The patient denies any smoking, illicit drug abuse or alcohol abuse. She lives with her at home. REVIEW OF SYSTEMS: CONSTITUTIONAL: The patient reports feeling very weak and tired and multiple falls at home. Eyes: She denies any blurry vision, double vision. ENT: She denies any dysphagia, odynophagia. Cardiovascular: She denies any chest pain or palpitation. Respiratory: She denies any cough or phlegm. Gastrointestinal: She reports decreased appetite. She denies any nausea, vomiting or diarrhea. Genitourinary she reports history of her UTIs in the past. She has a Adkins catheter right now. Musculoskeletal: She reports muscle weakness. Skin: She denies any rashes or ulcers. Psychiatric: She denies any depression or anxiety. Endocrine: She denies any history of hyperthyroidism or hypothyroidism. Hematology/Oncology: She denies any easy bleeding or bruising. All other review of system is negative. PHYSICAL EXAMINATION General: The patient is awake, alert, oriented times three, laying in bed. Vital signs: Temperature is 98.6 degrees Fahrenheit, blood pressure 137/67, pulse is 108, respiratory of 16, saturating 97% on nasal cannula at 2 liters. Intake and output: urine output recorded is 56 mL yesterday, 230 mL since overnight, her urine output is improving. Weight on the bed scale is 70.4 kg. PHYSICAL EXAMINATION: General: The patient is awake, alert, oriented times three. Head/Neck: Extraocular muscles intact. Pupils equally round and reactive to light. She has a triple lumen catheter in the right IJ. There is moderately elevated jugular venous distention (JVD) on the left side. Cardiovascular: S1, S2. Tachycardia. Trace edema of the bilateral lower extremities. Respiratory: Chest is clear to auscultation bilaterally. Bilateral equal air entry. No rales or rhonchi. Abdomen: Soft, positive bowel sounds. Mild tenderness in the right upper quadrant. Bladder is not palpable. She has an indwelling Adkins catheter. Musculoskeletal: No clubbing or cyanosis. Pulses are 2+. Central nervous system ([employer]): No focal deficit. Power is 5/5 in all extremities. Skin: No rashes or ulcers. LABORATORY REVIEW: CBC showed WBC of 19, hemoglobin 12.8, platelets of 102, INR is 2.1. Urinalysis done yesterday showed it was cloudy with 2+ protein, 1+ bilirubin, 3+ bacteria. ABG done yesterday showed a pH of 7.37. BMP last night showed sodium 144, potassium 4.4, chloride 111, bicarbonate 18, BUN 19, creatinine 1.9, calcium 8.6, total bilirubin was 1.2. Troponin was 1.53. Repeat BMP done today morning showed sodium 142, potassium 3.7, chloride 110, bicarb is 23, BUN 21, creatinine is 1.8, lactic acid repeat in the morning is 3.6, calcium 8.2, phosphorus 3.3, total bilirubin 1.1, AST 643, ALT is 330, alkaline phosphatase is 183, albumin is 2.7. Microbiology: Blood cultures are negative so far. Urine culture is pending. IMAGING STUDIES: A chest x-ray done yesterday showed no acute cardiopulmonary process. CT scan of the abdomen and pelvis was done yesterday, which showed no acute abdominopelvic pathology. Echocardiogram done yesterday showed mildly dilated right ventricle with right ventricular hypertrophy, severe hypokinesis and near akinesis of the right ventricle, severe reduction in the overall right ventricular systolic function, moderate elevation of the right ventricle systolic pressure and pulmonary artery systolic pressure, partial flattening of the ventricular septum during diastole, inferior vena cava plethora, left ventricular ejection fraction was 80%, grade 1 diastolic dysfunction. CURRENT INPATIENT MEDICATIONS: Current inpatient medications the patient is medication include: - Lasix drip at 15 mg per hour. She was on dobutamine up until this morning but this is being stopped at this time and the patient has been started on milrinone at 0.125 mcg/kg per minute. She is on meropenem 500 mg q. 12 hourly She was given normal saline boluses yesterday after her fall but she is not getting any IV fluids at this time. She is also on vancomycin 1 gram IV every 24 hours. She is on Tylenol as needed but I am stopping it at this time because of elevated liver enzymes. She is on allopurinol 100 mg daily and I am stopping it at this time. She is on baclofen 10 mg at night. The patient was given a dose of Diuril 500 mg IV early in the morning. She is on folic acid 1 mg by mouth daily. She was given two boluses of Lasix yesterday 40 mg and 60 mg. She is on gabapentin 300 mg at night, heparin subcutaneous, omeprazole 40 mg daily, Zofran as needed and she was given potassium chloride 40 mEq one dose this morning. ASSESSMENT: 68-year-old female with past medical history of gout, history of this Sjogren's syndrome and ankylosing spondylitis on methotrexate, admitted to intensive care unit (ICU) with severe decompensated cor pulmonale, acute renal failure and high anion gap metabolic acidosis. PLAN: 1. Acute renal failure. The patient has a cardiorenal syndrome. She was given Lasix bolus followed by Lasix drip, and she is she was also given a dose of IV Diuril early in the morning. With improvement in the heart function and volume status, renal function will continue to improve. Continue the Adkins catheter at this time. No urgent need of hemodialysis. 2. High anion gap metabolic acidosis. It is secondary to lactic acidosis and lactic acidosis is being caused by hypoperfusion and severe heart failure. The patient was on dobutamine overnight, which helped improve the lactic acid level to 3.6. She is being started on milrinone for ionotropic support. 3. Acute decompensated cor pulmonale. The patient does not have any history of pulmonary hypertension or right heart failure in the past, probably it was undiagnosed for a long time. As mentioned above, she was initially on dobutamine; however, critical care team is switching her to milrinone infusion. Continue the Lasix drip at 15 mg an hour. Urine output is slowly improving. Continue to replete potassium. 4. Congestive hepatopathy. The patient's total bilirubin and liver enzymes are raised because of heart failure. Once the volume status gets compensated, liver enzymes will start getting better. Avoid use of Tylenol at this time. 5. Leukocytosis, unknown etiology at this time. Cultures are negative. She is empirically being given vancomycin and meropenem. Dose and duration of antibiotics is as per primary team and critical care team. 6. History of gout. Because of acute renal failure and metabolic acidosis, I am stopping the allopurinol at this time. Once the renal function improves, allopurinol will be restarted. 7. History of ankylosing spondylosis and Sjogren's syndrome. Avoid further use of methotrexate in this patient with renal failure. 8. Elevated troponins. It is most likely secondary to stress ischemia. Continue the serial monitoring. Further treatment with anticoagulation or antiplatelet is as per cardiology recommendations. Thank you for involving me in the care of this patient. I shall be happy to follow the patient along with you tomorrow morning. Total critical care time spent in the management of this patient this morning in the ICU was 1 hour, that does not include any procedures. MTDD
[2019-03-17] MEDS: DIGOXIN INJ 0.5 MG/2 ML AMP (J1160) IV SCH ×2 (12:20→17:44)
[2019-03-17] MEDS: FUROSEMIDE injection 250 MG in D5W 225 ML IV SCH (13:46)
[2019-03-17 15:40] LABS: ALBUMIN 2.8 GM/DL (3.2-5.2); CALCIUM LEVEL 8.3 MG/DL (8.8-10.2); CREATININE FOR GFR 1.81 MG/DL (0.55-1.30); GLOMERULAR FILTRATION RATE 29.4 (>39); PHOSPHORUS LEVEL 2.7 MG/DL (2.5-4.9); POTASSIUM SERUM 4.1 MEQ/L (3.5-5.1)
--- NOTE | 2019-03-17 16:10 | REP ---
Clinical: Chest and lower extremity pain. Technique: Guo scale and color Doppler evaluation of the bilateral lower extremities using linear high frequency transducer. Findings: Ultrasound examination of the right lower extremity deep venous structures from the common femoral vein to the popliteal vein demonstrates nonocclusive thrombus in the mid femoral vein. Ultrasound examination of the left lower extremity deep venous structures from the common femoral vein to the popliteal vein demonstrates near complete occlusive thrombus extending from the proximal femoral vein to the popliteal vein/trifurcation. Impression: 1. Bilateral deep venous thrombosis (left greater than right). Electronically Signed by Dwain Humphries MD 03/17/2019 04:02 P
--- NOTE | 2019-03-17 18:30 | IPNPDOC ---
Date Seen The patient was seen on 03/17/19. Progress Note SUBJECTIVE: [id number] female with past medical history of ankles spondylitis, Sjogren's, hypertension, GERD, fibromyalgia, was admitted for severe right heart failure. Patient has been treated in the ICU setting with IV Lasix, dobutamine, which is now been switched to milrinone for inotropic support with good response. Clinically, patient has improved since admission, labs have also continued to improve with diuresis and improved cardiac output. Etiology for right heart failure, unknown, likely chronic with acute worsening due to PE/hypervolemia. Patient currently comfortable, denies any significant short of breath, chest pain, nausea, vomiting, abdominal pain or diarrhea. 10 point review of system is negative except for above PHYSICAL EXAMINATION: VITAL SIGNS: Please see below. GENERAL: No distress HEENT: Normocephalic, atraumatic, moist mucous membranes NECK: Positive JVD CARDIOVASCULAR EXAMINATION: S1, S2, tachycardic, irregular RESPIRATORY EXAMINATION: Scattered rhonchi, diminished, no wheezing ABDOMINAL EXAMINATION: Soft, nontender, nondistended, positive bowel sounds EXTREMITIES: Range of motion intact SKIN: No rash NEUROLOGICAL EXAMINATION: Alert and oriented 3, no focal deficits PSYCHIATRIC EXAMINATION: Calm and cooperative LABORATORY DATA, IMAGING STUDIES, MICROBIOLOGY: Please see below. Echocardiogram: Severely elevated right ventricular systolic pressure with hypokinesis/akinesis of the right ventricle. DVT prophylaxis ordered?: Yes ASSESSMENT AND PLAN: 68-year-old female with past medical history of ankylosing spondylitis, Sjogren's, hypertension, GERD, fibromyalgia is admitted for severe right heart failure. PROBLEMS: 1. Acute decompensated cor pulmonale: No prior history, likely undiagnosed, questionable type I versus type IV pulmonary hypertension, lower extremity Doppler positive for bilateral DVT, which raises suspicion for type IV, acute PE may have been the cause of acute decompensation. Clinical presentation and lab abnormalities have improved significantly with aggressive diuresis and inotropes. Patient with acute liver injury secondary to hepatic congestion from right heart failure, INR elevated to 2.19, platelets around 100, concerned about giving anticoagulation in this setting, discussed with interventional radiology for IVC placement, will schedule for tomorrow, nothing by mouth after midnight. Manufacturing Planner and n ephrology evaluation appreciated. 2. Acute kidney injury:. Cardiorenal syndrome secondary, improving with diuresis. 3. Lactic acidosis: Secondary to hypoperfusion with possible methotrexate toxicity, improving with aggressive diuresis and increased cardiac output. On empiric meropenem for possible infectious etiology, though unlikely. 4. Atrial fibrillation: Will hold off on anticoagulation for now, gave a tiny loading dose of digoxin, will monitor response and treated accordingly. DVT prophylaxis: Heparin subcutaneous GI prophylaxis: PPI VS, I&O, 24H, Fishbone Vital Signs/I&O Vital Signs Date Time Temp Pulse Resp B/P (MAP) Pulse Ox O2 Delivery O2 Flow Rate FiO2 03/17/19 18:00 111 123/81 (95) 90 Nasal Cannula 2.0 03/17/19 16:00 98.8 16 I&O- Last 24 Hours up to 6 AM 03/17/19 06:00 Intake Total 2330.4 ml Output Total 185 ml Balance 2145.4 ml Laboratory Data 24H LABS Laboratory Tests 2 03/16/19 18:30: Prothrombin Time 21.5H, Prothromb Time International Ratio 1.90, Lactic Acid Level 10.4*H 03/16/19 19:06: Urine Color WHITLEY, Urine Appearance CLOUDYH, Urine pH 5.0, Urine Specific [place] 1.021, Urine Protein 2+H, Urine Glucose (UA) 1+H, Urine Ketones TRACEH, Urine Blood NEGATIVE, Urine Nitrite NEGATIVE, Urine Bilirubin 1+H, Urine Urobilinogen 2.0H, Urine Leukocyte Esterase 1+H, Urine WBC (Auto) 59H, Urine RBC (Auto) 5H, Urine Hyaline Casts (Auto) 108, Urine Bacteria (Auto) 3+H, Urine Squamous Epithelial Cells 0, Urine Mucus (Auto) LARGE, Urine Sperm (Auto) 03/16/19 22:39: Urine Random Creatinine 289.0, Urine Random Sodium 21, Lactic Acid Followup at 4 Hours 7.5*H 03/16/19 22:40: Prothrombin Time 23.0H, Prothromb Time International Ratio 2.06 03/17/19 04:50: Nucleated Red Blood Cells % (auto) 0.0, Prothrombin Time 24.2H, Prothromb Time International Ratio 2.19, Anion Gap 9, Glomerular Filtration Rate 29.4L, Lactic Acid Level 3.6*H, Calcium Level 8.2L, Phosphorus Level 3.3, Magnesium Level 1.9, Total Bilirubin 1.1H, Aspartate Amino Transf (AST/SGOT) 643H, Alanine Aminotransferase (ALT/SGPT) 330H, Alkaline Phosphatase 183H, Total Protein 6.1L, Albumin 2.7L, Albumin/Globulin Ratio 0.79L 03/17/19 15:06: Anion Gap 7L, Glomerular Filtration Rate 29.4L, Calcium Level 8.3L, Phosphorus L evel 2.7, Albumin 2.8L, Lactic Acid Followup at 4 Hours 3.0*H CBC/BMP Laboratory Tests 03/17/19 04:50 03/17/19 15:06 Microbiology Microbiology 03/16/19 Urine Culture, Received Pending 03/16/19 Blood Culture - Preliminary, Resulted No growth after 24 hours . All specim... 03/16/19 Blood Culture - Preliminary, Resulted No growth after 24 hours . All specim... JOSHUA OCHOA MD Mar 17, 2019 18:21
[2019-03-17] MEDS: BACLOFEN 10 MG TAB PO SCH (20:18)
[2019-03-17] MEDS: FOLIC ACID 1 MG TAB PO SCH (20:18)
[2019-03-17] MEDS: GABAPENTIN 300 MG CAP PO SCH (20:18)
[2019-03-17] MEDS: OMEPRAZOLE 20 MG CAP PO SCH (20:18)
--- NOTE | 2019-03-17 20:35 | ECGEPIP ---
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
[2019-03-18] VITALS (21 sets, daily range): BP systolic 105–125; BP diastolic 52–79
[2019-03-18] MEDS: HEPARIN SOD (PORCINE) 5000 UNITS/ML VIAL SC SCH ×3 (05:22→20:50)
[2019-03-18] MEDS: FUROSEMIDE injection 250 MG in D5W 225 ML IV SCH (05:22)
[2019-03-18 05:49] LABS: HEMATOCRIT 43.3 % (36.0-47.0); HEMOGLOBIN 13.7 g/dl (12.0-15.5); MEAN CORPUSCULAR HEMOGLOBIN 28.4 pg (27.0-33.0); MEAN CORPUSCULAR HGB CONC 31.6 g/dl (32.0-36.5); MEAN CORPUSCULAR VOLUME 89.8 fl (80.0-96.0); PLATELET COUNT, AUTOMATED 110 10^3/uL (150-450); RED BLOOD COUNT 4.82 10^6/uL (4.00-5.40); WHITE BLOOD COUNT 18.2 10^3/uL (4.0-10.0)
[2019-03-18 06:23] LABS: BILIRUBIN,TOTAL 1.6 MG/DL (0.2-1.0); CALCIUM LEVEL 8.4 MG/DL (8.8-10.2); CREATININE FOR GFR 1.42 MG/DL (0.55-1.30); GLOMERULAR FILTRATION RATE 38.9 (>39); POTASSIUM SERUM 3.8 MEQ/L (3.5-5.1); TOTAL PROTEIN 6.1 GM/DL (6.4-8.2)
[2019-03-18] MEDS: MEROPENEM INJ 500 MG in IV 1 EA IV SCH ×2 (08:05→18:00)
[2019-03-18 08:45] LABS: INR 1.96; PROTHROMBIN TIME 22.1 SECONDS (11.8-14.0)
[2019-03-18] MEDS: MILRINONE/DEXTROSE 20 MG in IV 1 EA IV SCH (10:48)
[2019-03-18] MEDS ORDERED: fentaNYL 100 MCG/2 ML INJECTION (J3010) As Ordered ONE (11:15)
[2019-03-18] MEDS ORDERED: MIDAZOLAM INJ 2 MG/2 ML VIAL (J2250) As Ordered ONE (11:16)
[2019-03-18] MEDS ORDERED: LIDOCAINE 1% MDV 20ML VIAL As Ordered ONE (11:16)
[2019-03-18] MEDS ORDERED: diphenhydrAMINE INJ 50MG/ML VIAL (J1200) As Ordered ONE (11:18)
[2019-03-18] MEDS ORDERED: ISOVUE-300 61% 50ML VIAL (Q9967) As Ordered ONE (11:28)
--- NOTE | 2019-03-18 11:31 | IRINPTCON ---
[facility] IR Inpatient Consultation IR Inpatient Consultation DATE: Mar 18, 2019 REASON FOR CONSULTATION/CHIEF COMPLAINT: Bilateral DVT. HISTORY OF PRESENT ILLNESS: 68-year-old female presented with dizziness and weakness. She has a history of chronic kidney disease, Sjogren's syndrome, ankylosing spondylitis. During her hospital admission she was found to be volume overloaded with severe right-sided heart failure and cor pulmonale. She was t ransferred to ICU and treated with dobutamine for poor contractility of the heart and Lasix for volume overload. She had imaging of bilateral lower extremities which demonstrate deep vein thrombosis. Given her severe right-sided heart failure, suspicion of prior chronic thromboemboli, cor pulmonale, liver and kidney failure and questions about ability to comply with anti-coagulation, the team request IVC filter placement. ALLERGIES: Please see below. HOME MEDICATIONS: Please see below. PAST MEDICAL HISTORY: Sjogrens syndrome Ankylosing spondylitis Renal failure Osteoarthritis Fibromyalgia Gout GERD Hypertension Hyperlipidemia UTIs Depression Irritable bowel syndrome MRSA blood infections in the past Coloring hypertension Heart failure PAST SURGICAL HISTORY: Wrist repair Cholecystectomy Hysterectomy Colonoscopies EGD FAMILY HISTORY: Noncontributory. SOCIAL HISTORY: Denies smoking, alcohol or drugs. REVIEW OF SYSTEMS: Otherwise negative PHYSICAL EXAMINATION: VITAL SIGNS: Please see below. GENERAL APPEARANCE: Appears well. Comfortable at rest. HEENT: No scleral icterus. RESPIRATORY: Normal breathing at rest. CARDIOVASCULAR: Tachycardic ABDOMEN: Distended. EXTREMITIES: Pedal edema. NEUROLOGICAL: Alert and oriented. PSYCHIATRIC: Appropriate to circumstance. LABORATORY DATA: Please see below. Imaging: I personally reviewed the most recent ultrasound of the lower extremities. There is complete occlusive thrombus in the left lower extremity and partially occlusive thrombus in the right lower extremity extending from the popliteal vein up to the common femoral vein. ASSESSMENT/PLAN: 68 female with multiple medical comorbidities and severe right-sided heart failure and cor pulmonale with questionable ability to comply with long-term antii coagulation. In this setting, I agree that any single new pulmonary embolus may detrimental for the patient. Therefore, she would benefit from IVC filter placement. If the situation changes I would advocate the patient have the filter removed at the earliest opportunity. We will continue to follow her in clinic. I described the risks and benefits of the procedure to the patient and patient's and they would like to proceed. I spent 30 minutes in consultation with the patient. Thank you for this referral. Allergies Coded Allergies: Penicillins (Verified Allergy, Intermediate, Rash, 03/16/19) linezolid (Verified Allergy, Intermediate, Rash, Vomitting, 03/16/19) meperidine (Verified Adverse Reaction, Intermediate, Hallucinations, Vomitting, 03/16/19) Home Medications Scheduled Allopurinol (Allopurinol), 100 MG PO QHS, (Reported) Atorvastatin Calcium (Atorvastatin Calcium), 20 MG PO QHS, (Reported) Baclofen (Baclofen), 10 MG PO QHS, (Reported) Ezetimibe (Zetia), 10 MG PO QHS, (Reported) Folic Acid (Folic Acid), 1 MG PO QHS, (Reported) Gabapentin (Neurontin), 300 MG PO QHS, (Reported) Methotrexate Sodium (Methotrexate), 15 MG PO QWEEK, (Reported) Mirabegron (Myrbetriq), 25 MG PO QHS, (Reported) Omeprazole (Omeprazole), 40 MG PO QHS, (Reported) Scheduled PRN Aspirin/Caffeine (Galina Back-Body 500-32.5 mg), 1 EACH PO QHS PRN for PAIN, (Reported) Prednisone (Prednisone), 20 MG PO for PAIN, (Reported) Miscellaneous Medications [Med Rec Comment], (Reported) Discontinued Medications (Galina Back & Body Pain Ex 500-32.5 mg), 1 TAB PO PRN PRN for pain, (Reported) Discontinued Reason: Re-entering as new Mupirocin (Mupirocin), 1 APLCT TOP TID, (Reported) Discontinued Reason: Pt states not taking Tolterodine Tartrate (Detrol), 2 MG PO DAILY, (Reported) Discontinued Reason: Pt states not taking [Smz/Tmp], 1 TAB PO BID, (Reported) Discontinued Reason: Pt states not taking [bentyl], 10 MG PO ASDIRECTED, (Reported) Discontinued Reason: Pt states not taking [ziac], 1 MG PO DAILY, (Reported) Discontinued Reason: Pt states not taking VS, I&O, 24H, Fishbone Vital Signs/I&O Vital Signs Date Time Temp Pulse Resp B/P (MAP) Pulse Ox O2 Delivery O2 Flow Rate FiO2 03/18/19 11:10 99.1 119 20 88 Nasal Cannula 5 03/18/19 04:00 113/79 (90) I&O- Last 24 Hours up to 6 AM 03/18/19 06:00 Intake Total 600 ml Output Total 2930 ml Balance -2330 ml Laboratory Data 24H LABS Laboratory Tests 2 03/17/19 15:06: Anion Gap 7L, Glomerular Filtration Rate 29.4L, Lactic Acid Followup at 4 Hours 3.0*H, Calcium Level 8.3L, Phosphorus Level 2.7, Albumin 2.8L 03/18/19 05:30: Anion Gap 6L, Glomerular Filtration Rate 38.9L, Calcium Level 8.4L, Albumin 3.0L, Nucleated Red Blood Cells % (auto) 0.4H, Total Bilirubin 1.6H, Aspartate Amino Transf (AST/SGOT) 1176H, Alanine Aminotransferase (ALT/SGPT) 849H, Alkaline Phosphatase 203H, Total Protein 6.1L, Albumin/Globulin Ratio 0.97L 03/18/19 08:05: Prothrombin Time 22.1H, Prothromb Time International Ratio 1.96 CBC/BMP Laboratory Tests 03/17/19 15:06 03/18/19 05:30 Microbiology Microbiology 03/16/19 Urine Culture - Final, Complete 03/16/19 Blood Culture - Preliminary, Resulted No Growth after 48 hours. All Specime... 03/16/19 Blood Culture - Preliminary, Resulted No Growth after 48 hours. All Specime... ELISEO CAMPOS MD Mar 18, 2019 11:31
--- NOTE | 2019-03-18 12:11 | POST-OPPD ---
Postoperative Procedure Note Date Of Procedure: Mar 18, 2019 Time Of Procedure: 12:10 PREOPERATIVE DIAGNOSIS: bilateral DVT. RHF POSTOPERATIVE DIAGNOSIS: same FINDINGS: partial clot in peripheral IVC PROCEDURE: IVC filter placed SURGEON: felix ESTIMATED BLOOD LOSS: < 5 ml COMPLICATIONS: none POSTOPERATIVE CONDITION: stable ELISEO CAMPOS MD Mar 18, 2019 12:11
--- NOTE | 2019-03-18 15:25 | REP ---
IR IVC filter placement. IR Venogram. Ultrasound of the right groin. Clinical indication : Severe right-sided heart failure and pulmonary hypertension. Bilateral lower extremity deep vein thrombosis. Questionable compliance and ability to adequately anti coagulate in the setting of liver, kidney and heart failure. Physician: Dr. Osei. Procedure: The patient was advised of the benefits, risks and alternatives of the procedure and informed consent was obtained. The time-out was performed with verification of the patient's name, MRN, site of procedure and type of procedure to be performed. The patient was positioned in the supine position on the angiographic table. The site was prepped and draped in the usual sterile fashion. Moderate sedation was not appropriate. The physician spent 45 minutes of continuous face to face time with the patient. Preliminary ultrasound of the right groin was performed and demonstrates a patent right common femoral vein. The vein was accessed using a micropuncture kit, under ultrasound guidance. An 035 wire was placed into the peripheral inferior vena cava. An inferior vena cava venogram was then performed demonstrating a normal caliber inferior vena cava but containing filling defects indicative of clot at and above the inferior vena cava bifurcation. The renal vein inflow is at the L1 level were there is good flow and no clot. The wire was then passed into the inferior vena cava and the filter sheath advanced over the wire. A filter was then advanced through the sheath and positioned within the infrarenal inferior vena cava. The filter was then deployed in the usual fashion. Positioning was confirmed fluoroscopically. The sheath was then removed and hemostasis obtained with manual compression. The patient tolerated the procedure well and was returned to PRU in stable condition. EBL: Less than 5 ml. Complications: None. Conclusion: 1. Inferior vena cava venogram demonstrates partially occlusive thrombus peripherally in the IVC near the IVC bifurcation. No clot at or above the level of the renal vein entry. 2. Successful deployment of a cook select filter in the infrarenal inferior vena cava. 3. Patient to return for filter retrieval when no longer needed. Follow up in IR clinic in 6 months. Thank you this referral. Electronically Signed by Jossy Osei MD 03/18/2019 03:23 P
--- NOTE | 2019-03-18 18:24 | IPNPDOC ---
Text Note Date of Service The patient was seen on 03/18/19. NOTE Ms. Ruggiero was seen at bedside this morning and reported no acute events o vernight. She denies having any current chest pain. She was unsure about why she needed a DVT filter so both her and her were informed about her B/L LE DVT's. She repeated that she does not want to be a burden to her family. She denied any overnight fevers, chills, increased SOB or cough, or abdominal pain. Physical Exam: Vitals: See below General: She was sitting up in her hospital bed in no apparent distress. HEENT: Atraumatic, normocephalic. No scleral iscterus. Fair oral dentition n oted. No lymphadenopathy appreciated. Respiratory: Lungs CTA B/L with no wheezing, no rales, and no rhonchi CV: +S1, S2. No murmurs, no knocks, no rubs noted. Tachycardic HR in 120-130 range. Irregular heartbeat noted. Abdominal exam: No guarding, organomegaly, bruising or skin lesions noted Extremities: No LE edema. Left leg is very mildly larger than her right leg. Psych: Patient is generally alert and aware of her condition, time and self but did exhibit signs of altered mental status such as asking her about nonexistent children at their house last night. She seems to sometimes think she is somewhere other than the hospital. Assessment: This is a 68 year old woman with a pMHx significant for ankylosing spondylitis on MTX and intermittent prednisone, fibromyalgia, recurrent UTI, HTN, and GERD who presented to the ED w/ acute chest pain of a few days duration following a fall, was found to have pronounced right heart failure from pulmonary hypertension and is being treated with diuretics, digoxin and milrinone. She was found to have B/L LE DVT's and had a DVT filter placed on 03/18/2019. Plan: Cardiovascular: -Ms. Ruggiero originally presented to the ER with chest pain following a fall, dizziness and fatigue. After receiving fluid resuscitation for suspected sepsis she syncopized in the ER. She was found to have at least moderate right heart failure 2/2 pulmonary HTN. Etiologies of her pulmonary HTN include Group 1 disease from connective tissue disorder like scleroderma, chronic thromboembolic pulmonary hypertension (CTEPH), and sleep apnea. To rule out connective tissue disease etiologies of pulmonary HTN RACHEL, Scl-70 and Anti-centromere antibody screening will be ordered. Will continue treatment with Milrinone to support her cardiac function. Digoxin will also be continued to treat her new onset A.Fib without reducing contractility. Her Digoxin level was measured at 1.4 indicating non-toxic dose. We will continue to diurese patient for her right heart failure with Furosemide 7 mg/hr. She is currently producing 1-1.8L of urine a day. Her lactic acidosis has improved with diuresis to 3.6 (was 10.4 on 03/16/2019). Nocturnal oxygenation study will performed inpatient to [facility] for possible AGUSTIN as a etiology of her pulmonary hypertension although less likely as a cause for her severe PH. Finally, LE ultrasound shows B/L DVTs which coincide with patient's decreased mobility pre-admission and possible coagulopathic nature from liver dysfunction. IVC filter was placed today by IR and Ms. Hernandez is recovering well. If there is no evidence of bleeding then we will start a heparin drip to prevent progression of her clots and with concern for possible CTEPH. -Patient will need a V/Q scan at some point as an outpatient for evaluation for CTEPH. If she were to have evidence of CTEPH she would not be a surgical candidate for embolectomy but could potentially be treated with riociguat. Respiratory: -O2 saturation is 94% on 5L Nasal Cannula. She does not complain of SOB or significant cough. Chest CT and X-Ray showed no acute pathological processes and no evidence of pulmonary disease. Due to her pulmonary HTN it is important to ensure O2 saturations > 92% to prevent vasoconstriction of her pulmonary vasculature. Will follow-up results of her nocturnal oximetry study. Infectious: -Patients WBC count is 18.2 which is down from 19.0 on presentation where her differential showed 86% PMNs. Urinalysis showed +leukocyte esterase w/ 3+ ba cteria and 59 WBCs indicating probable UTI. This may have been a exacerbating factor in her original presentation where she met presented with a sepsis picture. Her IV Vancomycin was discontinued today however she continues to be on Meropenem. Blood cultures X2 were negative and Urine cultures were contaminated. Her procalcitonin was elevated at 0.59 on 03/16/2019 indicating likely bacterial infection which could be explained by her UTI on presentation. She currently is afebrile with normal respiratory rate, decreasing lactate, and is normotensive. GI: -Ms. Zaldivar transaminitis has worsened overnight with AST:ALT of 1176:849 respectively (increased from 643:330 on 03/17/2019). Her ALP is 203 which is up from 183 on 03/17/2019). Her transaminitis is likely secondary to hepatic leticia estion from her right heart failure. Currently we are planning on monitoring her LFTs daily to monitor for improvement as we manage her right heart failure. She is currently coagulopathic due to liver dysfunction -will continue to monitor coags. She is currently on Prilosec for stress ulcer prophylaxis. Ammonia levels was ordered today due to her slightly altered mental status and was normal at 20 . Her Baclofen was discontinued to rule-out medication induced encephalopathy Renal: -Ms. Zaldivar renal function improved overnight with BUN:Creatinine of 24:1.42 and a GFR of 38.9. She did receive 3.5 L of normal saline on admission due to her sepsis-like presentation which may have decreased her overall perfusion due to her hearts inability to compensate for increased intravascular volume. Therefore we will continue to diurese her with Furosemide 7 mg/hr and monitor her renal status. As her right heart failure is managed and her fluid levels are optimized she will hopefully have better renal perfusion and overall renal function. She has been responsive to her diuretics and has produced 1-1.8L of urine a day. DVT prophylaxis: Heparin 5000U SC Q8H Stress Ulcer Prophylaxis: Omeprazole 40 mg QHS PO Code Status: Patient is DNR & DNI Darius Chapman, have conducted an independent history and examination of the patient and agree with the plan as detailed above and discussed during rounds. VS,Maynorbone, I+O VS, Maynorbone, I+O Laboratory Tests 03/18/19 05:30 Vital Signs Date Time Temp Pulse Resp B/P (MAP) Pulse Ox O2 Delivery O2 Flow Rate FiO2 03/18/19 14:00 121 109/60 (76) 91 Nasal Cannula 5.0 03/18/19 13:33 97.8 18 I&O- Last 24 Hours up to 6 AM 03/18/19 06:00 Intake Total 600 ml Output Total 2930 ml Balance -2330 ml JACK ROPER S-3 Mar 18, 2019 18:23 DARIUS MELCHOR MD Mar 19, 2019 11:49
[2019-03-18] MEDS: GABAPENTIN 300 MG CAP PO SCH (20:01)
[2019-03-18] MEDS: FOLIC ACID 1 MG TAB PO SCH (20:01)
[2019-03-18] MEDS: OMEPRAZOLE 20 MG CAP PO SCH (20:01)
--- NOTE | 2019-03-18 20:05 | IPNPDOC ---
Date Seen The patient was seen on 03/18/19. Progress Note SUBJECTIVE: 68-year-old female with past medical history of ankles spondylitis, Sjogren's, hypertension, GERD, fibromyalgia, was admitted for severe right heart failure. Patient has been treated in the ICU setting with IV Lasix, dobutamine, which is now been switched to milrinone for inotropic support with good response. Clinically, patient has improved since admission, labs have also continued to improve with diuresis and improved cardiac output. Etiology for right heart failure, unknown, likely chronic with acute worsening due to PE/hypervolemia. Patient currently comfortable, denies any significant short of breath, chest pain, nausea, vomiting, abdominal pain or diarrhea. 10 point review of system is negative except for above 03/18/2019 Patient slightly confused in the morning, reports improvement in dyspnea, no other complaints at this time. She is scheduled to undergo IVC filter placement later today. PHYSICAL EXAMINATION: VITAL SIGNS: Please see below. GENERAL: No distress HEENT: Normocephalic, atraumatic, moist mucous membranes NECK: Positive JVD CARDIOVASCULAR EXAMINATION: S1, S2, tachycardic, regular RESPIRATORY EXAMINATION: Scattered rhonchi, diminished, no wheezing ABDOMINAL EXAMINATION: Soft, nontender, nondistended, positive bowel sounds EXTREMITIES: Range of motion intact SKIN: No rash NEUROLOGICAL EXAMINATION: Alert and oriented 3, no focal deficits PSYCHIATRIC EXAMINATION: Calm and cooperative LABORATORY DATA, IMAGING STUDIES, MICROBIOLOGY: Please see below. Echocardiogram: Severely elevated right ventricular systolic pressure with hypokinesis/akinesis of the right ventricle. DVT prophylaxis ordered?: Yes ASSESSMENT AND PLAN: 68-year-old female with past medical history of ankylosing spondylitis, Sjogren's, hypertension, GERD, fibromyalgia is admitted for severe right heart failure. PROBLEMS: 1. Acute decompensated cor pulmonale: No prior history, likely undiagnosed, lower extremity Doppler positive for bilateral DVT, which raises suspicion for type IV, acute PE may have been the cause of acute decompensation. Good response to Lasix drip and inotropes, Lasix drip rate reduced to 7 mg per hour, remains on milrinone. Plan for IVC filter placement today, will attempt anticoagulation with heparin drip tomorrow if patient stable. 2. Acute kidney injury:. Cardiorenal syndrome secondary, improving with diuresis. 3. Lactic acidosis: Secondary to hypoperfusion with possible methotrexate toxicity, resolved with aggressive diuresis and increased cardiac output. On empiric meropenem for possible infectious etiology, though unlikely. 4. Atrial fibrillation: Will attempt anticoagulation with heparin drip tomorrow, status post digoxin yesterday, dig. Level I.4 today, in sinus rhythm, slightly tachycardic, currently acceptable. DVT prophylaxis: Heparin subcutaneous GI prophylaxis: PPI VS, I&O, 24H, Fishbone Vital Signs/I&O Vital Signs Date Time Temp Pulse Resp B/P (MAP) Pulse Ox O2 Delivery O2 Flow Rate FiO2 03/18/19 17:00 115 107/65 (79) 94 Nasal Cannula 5.0 03/18/19 16:00 98.8 18 I&O- Last 24 Hours up to 6 AM 03/18/19 06:00 Intake Total 600 ml Output Total 2930 ml Balance -2330 ml Laboratory Data 24H LABS Laboratory Tests 2 03/18/19 05:30: Nucleated Red Blood Cells % (auto) 0.4H, Anion Gap 6L, Glomerular Filtration Rate 38.9L, Calcium Level 8.4L, Total Bilirubin 1.6H, Aspartate Amino Transf (AST/SGOT) 1176H, Alanine Aminotransferase (ALT/SGPT) 849H, Alkaline Phosphatase 203H, Total Protein 6.1L, Albumin 3.0L, Albumin/Globulin Ratio 0.97L 03/18/19 08:05: Prothrombin Time 22.1H, Prothromb Time International Ratio 1.96 03/18/19 12:45: Digoxin Level 1.4 03/18/19 12:46: Ammonia 20 CBC/BMP Laboratory Tests 03/18/19 05:30 Microbiology Microbiology 03/16/19 Urine Culture - Final, Complete 03/16/19 Blood Culture - Preliminary, Resulted No Growth after 48 hours. All Specime... 03/16/19 Blood Culture - Preliminary, Resulted No Growth after 48 hours. All Specime... JOSHUA OCHOA MD Mar 18, 2019 20:05
--- NOTE | 2019-03-18 20:29 | IPN ---
DATE: 03/18/2019 SUBJECTIVE The patient was seen and examined at the bedside today morning. She is awake and alert. Last 24-hour events were noted. The patient was found to have bilateral deep venous thrombosis (DVT) on the Doppler of the lower extremities. She was not anticoagulated because of hypercoagulability secondary to congestive hepatopathy. She is n.p.o. at this time and she is going for IVC filter placement. She continues to be on Lasix drip and she is making more than 150 mL of urine an hour and she reports that she is feeling thirsty now. Her renal function is stable. Creatinine is down to 1.4 today. Electrolytes are within the acceptable limit now. Her liver enzymes are still high. She continues to be on milrinone infusion as well. She was given a dose of digoxin yesterday. OBJECTIVE Vital signs: Temperature is 99.1 degrees Fahrenheit. Blood pressure is 107/68, pulse is 119, respiratory rate of 20, saturating 94% on nasal cannula at 5 liters. Intake and output: Urine output recorded as 2.1 liters yesterday, 1.6 liters so far today since overnight. Weight in the bed scale is 68.9 kg. PHYSICAL EXAMINATION General: The patient is awake, alert, and oriented time three, laying in bed. No apparent distress. Head and neck examination: Extraocular muscles intact. Pupils equally round and reactive to light. Mucous membranes are moist. Neck is supple. There is moderate elevation of jugular venous distention (JVD). Cardiovascular: S1, S2, regular rate. Trace edema of the bilateral lower extremities. Respiratory: Chest is clear to auscultation bilaterally. Bilateral equal air entry. No rales or rhonchi. Abdomen: Soft, positive bowel sounds. Mild amount of tenderness in the right lower quadrant. Musculoskeletal: No clubbing or cyanosis. Trace to 1+ edema of the bilateral lower extremities. CANDY MAKER: No focal deficit. Power is 5/5 in all extremities. LAB REVIEW: CBC showed a WBC of 18.2, hemoglobin 13.7, platelets of 110. BMP done today morning showed sodium 140, potassium 3.8, chloride 102, bicarb 32, BUN 24, creatinine is 1.4, it was 1.8 yesterday. Calcium 8.4, total bilirubin 1.6, AST 1176, ALT is 849, albumin is 3. Microbiology: Urine cultures are negative and it says that specimen appears contaminated. IMAGING STUDIES Doppler ultrasound of the bilateral lower extremity showed bilateral deep vein thrombosis, left was greater than the right. CURRENT INPATIENT MEDICATIONS The patient's medications were all reviewed by myself. She continues to be on milrinone infusion. I have decreased the Lasix infusion to 7 mg per hour. She continues to be on meropenem 500 mg IV every 12 hourly and digoxin has been stopped now. ASSESSMENT/PLAN 1. Acute renal failure. It is secondary to cardiorenal syndrome. The patient is responding well to Lasix drip and milrinone infusion. The patient is n.p.o. at this time and she is making more than 150 mL of urine an hour. I am going to decrease the Lasix infusion rate to 7 mg per hour. Continue the Adkins catheter at this time. 2. Acute decompensated cor pulmonale. Looking at the bilateral DVT, it looks like the patient has a chronic bilateral DVTs and throwing clots and getting chronic pulmonary embolism as well which has caused cor pulmonale. A decision to start anticoagulation is as per primary team and critical care team given that patient was coagulopathic secondary to hepatic congestion. Continue the milrinone infusion. 3. Tachycardia/Afib. The patient was given digoxin yesterday. Tachycardia is slightly better. 4. Lactic acidosis. Lactic acidosis is improving after improvement in the perfusion. Serum bicarb level today is 32. 5. Congestive hepatopathy. AST, ALT levels are still rising. INR level is stable. 6. Leukocytosis. Leukocytosis is getting better. The patient is on broad-spectrum antibiotic. Cultures are negative so far. 7. Bilateral DVT. The patient is going to have IVC filter placement today. Anticoagulation is on hold because of congestive hepatopathy and coagulopathy. Total critical care time spent in the management of this patient today morning in the ICU was 45 minutes. MTDD
[2019-03-18] MEDS: SODIUM CHLORIDE NASAL 0.65% SPRAY BTL (OCEAN) SCH (20:48)
[2019-03-19] VITALS (20 sets, daily range): BP systolic 92–150; BP diastolic 41–70
[2019-03-19] MEDS ORDERED: DIGOXIN INJ 0.5 MG/2 ML AMP (J1160) IV ONE (03:15)
[2019-03-19] MEDS: FUROSEMIDE injection 250 MG in D5W 225 ML IV SCH (05:58)
[2019-03-19 06:00] LABS: HEMATOCRIT 43.6 % (36.0-47.0); HEMOGLOBIN 13.6 g/dl (12.0-15.5); MEAN CORPUSCULAR HGB CONC 31.2 g/dl (32.0-36.5); MEAN CORPUSCULAR VOLUME 89.7 fl (80.0-96.0); PLATELET COUNT, AUTOMATED 116 10^3/uL (150-450); RED BLOOD COUNT 4.86 10^6/uL (4.00-5.40); WHITE BLOOD COUNT 12.3 10^3/uL (4.0-10.0)
[2019-03-19] MEDS: HEPARIN SOD (PORCINE) 5000 UNITS/ML VIAL SC SCH (06:04)
[2019-03-19] MEDS: MEROPENEM INJ 500 MG in IV 1 EA IV SCH ×2 (06:04→18:36)
--- NOTE | 2019-03-19 06:04 | IPNPDOC ---
Text Note Date of Service The patient was seen on 03/19/19. NOTE NIGHT NOTE: Patient noted to be tachycardic, HR jumping from low 100s up to 150s, asymptomatic. NOT sustaining >110. Examined at bedside, resting comfortably and states she feels her normal self. EKG obtained confirming heart rate 140s, no significant changes from prior EKGs. On monitor, going in & out of A. fib RVR, did not improve with pausing milrinone for half hour. Was given loading dose digoxin, ultimately improved back down to the low 100s, not requiring any additional cardiac drugs. Milrinone drip continued. Later on, noted to be hypotensive 90s over 50s. Hold parameters placed on Lasix drip to hold from MAP<65. BP improved back to MAP >80 afterwards, and drip resumed. Both milrinone and Lasix drip continue now into am. Patient stable otherwise throughout the night. VS,Fishbone, I+O VS, Fishbone, I+O Vital Signs Date Time Temp Pulse Resp B/P (MAP) Pulse Ox O2 Delivery O2 Flow Rate FiO2 03/19/19 03:24 140 03/19/19 02:00 18 105/58 (74) 93 Nasal Cannula 5.0 03/19/19 00:00 98.6 03/18/19 22:30 50 I&O- Last 24 Hours up to 6 AM 03/19/19 06:00 Intake Total 947.12 ml Output Total 2385 ml Balance -1437.88 ml GME ATTESTATION GME ATTESTATION My faculty preceptor for this patient encounter was physically present during the encounter and was fully available. All aspects of the patient interview, examination, medical decision making process, and medical care plan development were reviewed and approved by the faculty preceptor. The faculty preceptor is aware and concurs with the plan as stated in the body of this note and will attest to such by his/her cosignature. TUNDE LOZANO DO Mar 19, 2019 06:04
[2019-03-19 06:31] LABS: ALBUMIN 2.5 GM/DL (3.2-5.2); BILIRUBIN,TOTAL 1.7 MG/DL (0.2-1.0); CALCIUM LEVEL 8.2 MG/DL (8.8-10.2); CREATININE FOR GFR 1.06 MG/DL (0.55-1.30); GLOMERULAR FILTRATION RATE 54.6 (>39); POTASSIUM SERUM 3.4 MEQ/L (3.5-5.1); TOTAL PROTEIN 5.9 GM/DL (6.4-8.2)
[2019-03-19] MEDS ORDERED: MAGNESIUM OXIDE 400 MG TAB (MAG-OX) PO ONE (06:45)
[2019-03-19] MEDS ORDERED: POTASSIUM CHLORIDE 10 MEQ SR TABLET PO ONE ×2 (06:45→12:00)
[2019-03-19] MEDS ORDERED: FUROSEMIDE 100 MG/10 ML VIAL (J1940) IV SCH (09:00)
[2019-03-19] MEDS: SODIUM CHLORIDE NASAL 0.65% SPRAY BTL (OCEAN) SCH (09:13)
[2019-03-19] MEDS: MAG SULF 1GM/100ML (MAG RUN) 1 GM in IV 1 EA IV SCH ×4 (09:13→12:25)
[2019-03-19] MEDS ORDERED: SODIUM CHLORIDE NASAL 0.65% SPRAY BTL (OCEAN) PRN (09:30)
[2019-03-19] MEDS ORDERED: HEPARIN SOD (PORCINE) 5000 UNITS/ML VIAL IV PRN (09:30)
[2019-03-19] MEDS ORDERED: HEPARIN DRIP 25,000 UNITS in IV 1 EA IV SCH (10:15)
[2019-03-19] MEDS ORDERED: TORSEMIDE 20 MG TAB PO ONE (10:45)
[2019-03-19 11:13] LABS: INR 1.63; PROTHROMBIN TIME 19.1 SECONDS (11.8-14.0)
[2019-03-19 11:14] LABS: PARTIAL THROMBOPLASTIN TIME 47.3 SECONDS (25.0-38.4)
[2019-03-19] MEDS: SODIUM CHLORIDE 0.9% NASAL GEL 15GM (AYR) PRN ×2 (11:47→20:07)
[2019-03-19] MEDS: HEPARIN DRIP 25,000 UNITS in IV 1 EA IV SCH (12:25)
--- NOTE | 2019-03-19 14:25 | CCN ---
DATE: 03/19/2019 The patient was seen and examined this morning during bedside rounds. Overnight the patient had an episode of paroxysmal atrial fibrillation, where her heart rate had jumped up to 150s at times. She was asymptomatic at the time. Her milrinone was held for half an hour but continued to be in what appeared to be possibly atrial fibrillation and rapid ventricular response (RVR). She was given another dose of digoxin, and her heart rate improved to the 100s. Her milrinone drip was continued.; however, later on overnight she was hypotensive with systolic in the 90s over 60s. Her Lasix drip was held, and her blood pressure improved with a mean arterial pressure (MAP) above 80 afterward. Her Lasix drip was restarted, and she was continued on the until this morning. This morning the patient appears frustrated about her hospitalization but denies any acute complaints. She denies any chest pain. No shortness breath. Has not had any coughing or wheezing. No fevers or chills. The patient is complaining of some dryness in her nose with the nasal cannula, and she frequently is taking it off due to the discomfort. She did have a Venturi mask on at some point yesterday to see if she would tolerate that better, but she also has difficulty keeping that on as well PHYSICAL EXAMINATION: VITAL SIGNS: Temperature 98.6, pulse 110, respirations 18, blood pressure 105/58, oxygen saturation 93% on 5 meters nasal cannula. In 927, out 3 liters, net negative 2.1 liters. GENERAL: Patient is sitting in bed. Does not appear to be in acute distress. Is awake and alert and answering questions appropriately for the most part. She is not in any respiratory distress. HEENT: Atraumatic, normocephalic. Pupils reactive to light. There is no scleral icterus noted. NECK: Supple. Trachea is midline. There is no cervical adenopathy appreciated. CARDIOVASCULAR: Tachycardiac, regular rate and rhythm. Normal S1, S2. No murmurs appreciated. RESPIRATORY: Mild crackles at the bases but otherwise clear to auscultation with no wheezes or rhonchi. ABDOMEN: Obese, soft, nontender, nondistended. EXTREMITIES: There is a dressing in place in her right groin region. There is some tenderness to palpation in that region, but there does not appear to be a palpable hematoma. Legs: There is no significant pitting lower extremity edema, but there is some mild tenderness to palpation. Left leg appears slightly larger than the right. LABORATORY DATA: WBC 12.3, hemoglobin 13.6, platelets 116. Chemistry: Sodium 138, potassium 3.4, chloride 96, bicarbonate 34, BUN 22, creatinine 1.06, glucose is 121. Magnesium is 1.4. Total bilirubin is 1.7, AST, ALT trending down to 343 and 565, alkaline phosphatase 178. ASSESSMENT AND PLAN: Ms. Ruggiero is a 68-year-old female with a past medical history of ankylosing spondylitis, Sjogren's hypertension, hyperlipidemia, gastroesophageal reflux disease (GERD), fibromyalgia, history of frequent urinary tract infections (UTIs) who presented initially with complaints of chest pain. She had also been reporting for the past few months episodes of dizziness and lightheadedness as well as fatigue. In the emergency department (ED) she did have episodes of syncope when she had attempted to go the bathroom. 1. Cardiovascular: The patient has evidence of pulmonary hypertension on exam, which appears chronic given the hypertrophy on her echocardiogram. In terms of etiologies for her pulmonary hypertension, the patient was found to have lower extremity deep vein thromboses (DVTs), and so chronic thromboembolic pulmonary hypertension (CTEPH) is in the differential. Given her connective tissue disease history of Sjogren's, there is also possibility of group 1 pulmonary artery hypertension (PAH) related to possible scleroderma, although clinically she appears to have more anklyosing spondylitis with Sjogren's overlap. The patient was noted to have evidence of right ventricular (RV) overload with the possibility of an acute pulmonary embolism (PE), causing further decompensation of her chronic pulmonary hypertension and right sided heart failure. The patient was placed on dobutamine initially, which she did not tolerate due to atrial tachyarrhythmia, and she was switched to milrinone as well as with Lasix for diuresis. With diuresis she appeared to have improvement in her hemodynamic status. She also appeared to have improvement in her lactic acidosis, which was likely due to decreased perfusion from RV overload impeding the left ventricular outflow. The patient has been diuresing well. Overnight she did appear to have another episode of atrial fibrillation. She was given further digoxin with improvement and conversion into sinus rhythm this morning. Suspect some of this may be due to her diuresis, and we will discontinue her IV Lasix and switch instead to oral torsemide. Will also discontinue her milrinone, which she was only on a low dose for to help with inotropic support initially and improvement for hemodynamics Patient is status post inferior vena cava IVC) filter by interventional radiology (IR) on 03/18/2019. Her hemoglobin appears to be stable, and her liver function tests (LFTs) appear to be improving. Therefore, we will start the patient on heparin drip for anticoagulation given the possibility of chronic thromboembolic pulmonary hypertension (CTEPH) contributing to her pulmonary hypertension as well as to prevent further progression of her thromboembolic disease. The patient will need a V/Q scan at some point as an outpatient for evaluation of CTEPH . If she were to have evidence of it, she would not be a surgical candidate for embolectomy given her age and other comorbidities, but she could potentially be treated with Riociguat instead. The patient had a nocturnal oximetry study done for evaluation of possible sleep apnea contributing to her pulmonary retention. On the nocturnal oximetry study, she was noted to have some episodes of oxygen saturation and heart rate variability, although this study was of somewhat poor quality. She will likely need a formal sleep study as an outpatient for more a complete evaluation. Continue with digoxin as needed for rate control 2. Pulmonary: The patient had a CT chest on admission, which did not show any evidence of pneumonia or evidence of chronic interstitial lung disease. She did have some mild subpleural articulation in the dependent portions of her lungs, which may be due to atelectasis. She was on methotrexate, but there does not appear to be any prior significant methotrexate toxicity noted on the lungs. The patient is on nasal cannula oxygen supplementation. Some of this may be acutely in the setting of a possible acute pulmonary embolism (PE). Would continue with nasal cannula oxygen to maintain an oxygen saturation above 90%. The patient's nocturnal oximetry study was performed on nasal cannula oxygen supplementation. She did still have some episodes of variable desaturations noted and some variability heart rate. She likely would benefit from an outpatient sleep study for further evaluation of possible AGUSTIN. 3. Infectious disease (ID). The patient initially presented with leukocytosis, and her urinalysis (UA) was positive. There was some concern for a possible UTI, which may have also contributed to her decompensation. The patient was initially given IV fluid boluses for sepsis given her significant lactic acidosis; however, it appears her lactic acidosis was not from sepsis but more likely related to her right heart failure. The patient's vancomycin was discontinued, and she was continued on meropenem. If we suspect that patient had an infection from a UTI, she would only need a 3-day course of antibiotics. Would consider discontinuing antibiotics and continue to monitor for any other infectious etiology. Her white count has continued to trend down. 4. Gastrointestinal (GI): The patient had evidence of transaminitis, likely secondary to hepatic congestion from her right heart failure. Her LFTs are improving today and will continue monitor. The patient was also coagulopathic, likely in setting of her acute liver dysfunction. She will be started on anticoagulation and will monitor for signs of bleeding. Continue with stress ulcer prophylaxis. The patient did have an ammonia level checked given her periods of confusion with her liver dysfunction. Her ammonia level was normal. 5. Renal. The patient was noted have acute kidney failure, likely cardiorenal in nature, due to her right-sided heart failure. With diuresis and inotropic support, her renal function has continued to improved. Appreciate renal consult and recommendations. Her IV Lasix is being discontinued, and she will be switched to torsemide oral as per renal. Continue monitoring her ins and outs. Replete electrolytes as needed. DVT prophylaxis, heparin drip, for full anticoagulation. GI prophylaxis with proton pump inhibitor (PPI). CODE STATUS: DO NOT RESUSCITATE/DO NOT INTUBATE. The patient appears to have some deconditioning. Will consult physical therapy (PT)/occupational therapy (OT) for evaluation. Total critical care time spent, not including procedures, approximately 45 minutes. HERMAND
--- NOTE | 2019-03-19 15:16 | NOCOX ---
DATE OF PROCEDURE: 03/19/2019 Study was performed on 5 liters nasal cannula supplementation. Total valid sampling time was 6 hours and 6 minutes. Patient's highest oxygen saturation was 99%, lowest was 79%. Heart rate varied from a pulse of 162 to a low of 59. Total time spent with an oxygen saturation less than 88% was 21 minutes. Graphically, patient did have significant oxygen saturation variability as well as heart rate variability noted. There were a few episodes of possible periodic desaturations, although patient does have a history of removing her nasal cannula oxygen supplementation frequently. IMPRESSION: Abnormal nocturnal oximetry study. There was significant desaturation despite reportedly being on 5 liters nasal cannula supplementation. Patient does have a history, however, of noncompliance with the nasal cannula oxygen supplementation, and so some of these may also be in the setting of not wearing her oxygen. There was evidence of oxygen saturation variability and heart rate variability and would recommend more formal testing as an outpatient with sleep study for evaluation of possible obstructive sleep apnea.
--- NOTE | 2019-03-19 17:43 | IPNPDOC ---
Date Seen The patient was seen on 03/19/19. Progress Note SUBJECTIVE: 68-year-old female with past medical history of ankles spondylitis, Sjogren's, hypertension, GERD, fibromyalgia, was admitted for severe right heart failure. Patient has been treated in the ICU setting with IV Lasix, dobutamine, which is now been switched to milrinone for inotropic support with good response. Clinically, patient has improved since admission, labs have also continued to improve with diuresis and improved cardiac output. Etiology for right heart failure, unknown, likely chronic with acute worsening due to PE/hypervolemia. Patient currently comfortable, denies any significant short of breath, chest pain, nausea, vomiting, abdominal pain or diarrhea. 10 point review of system is negative except for above 03/18/2019 Patient slightly confused in the morning, reports improvement in dyspnea, no other complaints at this time. She is scheduled to undergo IVC filter placement later today. 03/19/2019 Patient comfortable in bed, wishes to go home, reports improvement in shortness of breath, no other complaints at this time. PHYSICAL EXAMINATION: VITAL SIGNS: Please see below. GENERAL: No distress HEENT: Normocephalic, atraumatic, moist mucous membranes NECK: Positive JVD CARDIOVASCULAR EXAMINATION: S1, S2, tachycardic, regular RESPIRATORY EXAMINATION: Scattered rhonchi, diminished, no wheezing ABDOMINAL EXAMINATION: Soft, nontender, nondistended, positive bowel sounds EXTREMITIES: Range of motion intact SKIN: No rash NEUROLOGICAL EXAMINATION: Alert and oriented 3, no focal deficits PSYCHIATRIC EXAMINATION: Calm and cooperative LABORATORY DATA, IMAGING STUDIES, MICROBIOLOGY: Please see below. Echocardiogram: Severely elevated right ventricular systolic pressure with hypokinesis/akinesis of the right ventricle. DVT prophylaxis ordered?: Yes ASSESSMENT AND PLAN: 68-year-old female with past medical history of ankylosing spondylitis, Sjogren's, hypertension, GERD, fibromyalgia is admitted for severe right heart failure. PROBLEMS: 1. Acute decompensated cor pulmonale: No prior history, likely undiagnosed, lower extremity Doppler positive for bilateral DVT, which raises suspicion for type IV, acute PE may have been the cause of acute decompensation. Good response to Lasix drip and inotropes, Lasix drip and milrinone discontinued today. Status post IVC filter placement yesterday, heparin drip started for anticoagulation. 2. Acute kidney injury: Cardiorenal syndrome secondary, renal function within normal limits, Lasix drip discontinued, torsemide started. 3. Lactic acidosis: Secondary to hypoperfusion with possible methotrexate toxicity, resolved with aggressive diuresis and increased cardiac output. On empiric meropenem for possible infectious etiology, though unlikely. 4. Atrial fibrillation: On heparin drip for anticoagulation. DVT prophylaxis: Heparin subcutaneous GI prophylaxis: PPI VS, I&O, 24H, Fishbone Vital Signs/I&O Vital Signs Date Time Temp Pulse Resp B/P (MAP) Pulse Ox O2 Delivery O2 Flow Rate FiO2 03/19/19 16:00 4.0 03/19/19 09:00 120 108/56 (73) 87 Nasal Cannula 03/19/19 08:00 98.8 18 03/18/19 22:30 50 I&O- Last 24 Hours up to 6 AM 03/19/19 06:00 Intake Total 947.12 ml Output Total 2385 ml Balance -1437.88 ml Laboratory Data 24H LABS Laboratory Tests 2 03/19/19 05:50: Nucleated Red Blood Cells % (auto) 0.6H, Anion Gap 8, Glomerular Filtration Rate 54.6, Calcium Level 8.2L, Magnesium Level 1.4L, Total Bilirubin 1.7H, Aspartate Amino Transf (AST/SGOT) 434H, Alanine Aminotransferase (ALT/SGPT) 565H, Alkaline Phosphatase 178H, RW-Usj-O-Type Natriuretic Peptide 98838G, Total Protein 5.9L, Albumin 2.5L, Albumin/Globulin Ratio 0.74L 03/19/19 10:51: Prothrombin Time 19.1H, Prothromb Time International Ratio 1.63, Activated Partial Thromboplast Time 47.3H CBC/BMP Laboratory Tests 03/19/19 05:50 Microbiology Microbiology 03/16/19 Urine Culture - Final, Complete 03/16/19 Blood Culture - Preliminary, Resulted No Growth after 72 hours. All specime... 03/16/19 Blood Culture - Preliminary, Resulted No Growth after 72 hours. All specime... JOSHUA OCHOA MD Mar 19, 2019 17:43
[2019-03-19] MEDS: TORSEMIDE 10 MG TABLET PO SCH (18:36)
[2019-03-19] MEDS: OMEPRAZOLE 20 MG CAP PO SCH (20:06)
[2019-03-19] MEDS: GABAPENTIN 300 MG CAP PO SCH (20:06)
[2019-03-19] MEDS: FOLIC ACID 1 MG TAB PO SCH (20:06)
[2019-03-20] VITALS (12 sets, daily range): BP systolic 95–136; BP diastolic 52–77
[2019-03-20 05:24] LABS: HEMATOCRIT 42.8 % (36.0-47.0); HEMOGLOBIN 13.5 g/dl (12.0-15.5); MEAN CORPUSCULAR HEMOGLOBIN 28.3 pg (27.0-33.0); MEAN CORPUSCULAR HGB CONC 31.5 g/dl (32.0-36.5); MEAN CORPUSCULAR VOLUME 89.7 fl (80.0-96.0); PLATELET COUNT, AUTOMATED 123 10^3/uL (150-450); RED BLOOD COUNT 4.77 10^6/uL (4.00-5.40); WHITE BLOOD COUNT 11.1 10^3/uL (4.0-10.0)
[2019-03-20 05:59] LABS: ALBUMIN 2.3 GM/DL (3.2-5.2); ALT/SGPT 364 U/L (12-78); BILIRUBIN,TOTAL 1.3 MG/DL (0.2-1.0); BLOOD UREA NITROGEN 18 MG/DL (7-18); CALCIUM LEVEL 7.5 MG/DL (8.8-10.2); CARBON DIOXIDE LEVEL 38 MEQ/L (21-32); CHLORIDE LEVEL 93 MEQ/L (98-107); CREATININE FOR GFR 0.92 MG/DL (0.55-1.30); GLOMERULAR FILTRATION RATE > 60.0 (>39); GLUCOSE, FASTING 120 MG/DL (70-100); MAGNESIUM LEVEL 1.9 MG/DL (1.8-2.4); PHOSPHORUS LEVEL 1.6 MG/DL (2.5-4.9); POTASSIUM SERUM 3.7 MEQ/L (3.5-5.1); SODIUM LEVEL 136 MEQ/L (136-145); TOTAL PROTEIN 5.6 GM/DL (6.4-8.2)
[2019-03-20] MEDS: MEROPENEM INJ 500 MG in IV 1 EA IV SCH (06:16)
[2019-03-20 08:32] LABS: ABG HCO3 31.5 MEQ/L (22.0-26.0); ABG O2 SATURATION 94.6 % (95.0-99.0); ABG PARTIAL PRESSURE CO2 36.1 mmHg (35.0-45.0); ABG PARTIAL PRESSURE O2 65.7 mmHg (75.0-100.0); ABG STANDARD HCO3 32.7 MEQ/L (22.0-26.0); ABG TOTAL CO2 32.6 MEQ/L (23.0-31.0); ABG pH (ARTERIAL) 7.559 UNITS (7.350-7.450)
[2019-03-20] MEDS ORDERED: POTASSIUM PHOSPHATE INJ 30 MMOL in D5W 500 ML IV ONE (09:00)
[2019-03-20] MEDS: TORSEMIDE 10 MG TABLET PO SCH (09:08)
--- NOTE | 2019-03-20 09:40 | IPN ---
DATE: 03/19/2019 SUBJECTIVE: The patient was seen and examined at the bedside today morning in the intensive care unit (ICU). She is awake, reports that she is feeling very tired and fatigued. Her labs were reviewed. Renal function is improving, creatinine is down to 1 today. Last 24-hour events were noted. On-call resident was called overnight because of tachycardia and atrial fibrillation with rapid ventricular rate. She was in and out of atrial fibrillation (a fib). Her milrinone drip was stopped overnight. The patient was given a loading dose of digoxin and that helped improve her heart rate into 100s, and I see that early in the morning both her Lasix drip and milrinone drip had been stopped. The patient is maintaining her blood pressure in low 100s without any vasopressor support. Apart from feeling tired and fatigued, she denies any active complaints. She also got an inferior vena cava (IVC) filter placed yesterday by interventional radiology. OBJECTIVE: Vital signs: Temperature is 98.8 degrees Fahrenheit, blood pressure is 108/56, pulse is 120, respiratory rate of 18, saturating 89% on nasal cannula at 5 liters. Intake and output: Urine output recorded is 3 liters yesterday, 250 mL so far today since overnight. Weight in the bed scale is not available. PHYSICAL EXAMINATION: General: The patient is awake, alert, oriented times three, morbidly obese, laying in bed in no apparent distress. Head and neck exam: Pupils are equally round and reactive to light. Mucous membranes are moist. Neck is supple. There is mild elevation of jugular venous distention (JVD), and she has a right internal jugular (IJ) triple lumen catheter. Cardiovascular: S1, S2, tachycardia. No edema of the bilateral lower extremities. Respiratory: Chest is clear to auscultation bilaterally. Bilateral equal air entry. No rales or rhonchi. Abdomen: Soft, positive bowel sounds. Nontender. No organomegaly. Genitourinary: She has an indwelling Adkins catheter. Urine in the bag is clear. Musculoskeletal: No clubbing or cyanosis. She has a moderate amount of tenderness to deep palpation in bilateral lower extremities. Central nervous system (MATH INSTRUCTOR): No focal deficit. Power is 5/5 in all extremities. LAB REVIEW: CBC showed a WBC of 12.3, hemoglobin 13.6, platelets [id number], INR today morning is 1.6 with a PTT of 47. BMP showed sodium 138, potassium 3.4, chloride 96, bicarbonate 34, BUN 22, creatinine is 1.06, calcium 8.2, magnesium 1.4, total bilirubin 1.7, AST is 434, ALT is 565, alkaline phosphatase is 178 and these labs are improving as compared with yesterday. Pro-BNP is 18,678, albumin is 2.5. IMAGING: She got the IVC filter placed yesterday. There was a clot above the inferior vena cava bifurcation. CURRENT INPATIENT MEDICATIONS: The patient's medications were all reviewed by me. Her IV furosemide infusion has been stopped. The patient has been started on a heparin drip. Milrinone infusion has also been stopped. She is getting IV magnesium sulfate 1 gram every 1 hour for a total of four bags. She continues to be on meropenem. She was given a dose of digoxin 0.25 mg IV last night and Cardizem 15 mg IV at night as well. She is on torsemide 60 mg IV twice a day; I am stopping that at this time. Furosemide 60 mg IV twice a day; I am stopping that at this time. Heparin subcu has been stopped. The patient was given potassium chloride 40 mEq by mouth times one dose in the morning and another dose in the afternoon. The patient was given torsemide 20 mg by mouth one dose in the morning, and I have started her on torsemide 30 mg by mouth twice a day starting tonight. ASSESSMENT/PLAN: 1. Acute renal failure. Patient's renal function is improving. She is being treated as cardiorenal syndrome. She was on IV lasix drip. Volume status is improving. Renal function has improved close to baseline. IV diuretics have been stopped, and she has been switched to oral diuretics now. 2. Acute decompensated cor pulmonale. The patient's milrinone infusion has been stopped because of atrial fibrillation with rapid ventricular rate. Blood pressures are optimum. Volume status is getting better. IV diuretics are stopped now, started on torsemide 30 mg by mouth twice a day. 3. Atrial fibrillation with rapid ventricular rate. The patient was loaded with digoxin. She also got Cardizem last night. She is being started on a heparin drip for bilateral DVT that would help for anticoagulation for atrial fibrillation as well. 4. Bilateral DVT. The patient is status post IVC filter. Initially anticoagulation was on hold because of congestive hepatopathy and coagulopathy. She has been started on heparin starting today morning. Clot was up to the bifurcation of the IVC infrarenally and IVC filter was placed below the renal veins. 5. Hypokalemia. It is secondary to aggressive diuresis. The patient was given potassium chloride in the morning. 6. Hypomagnesemia. The patient is getting IV magnesium for a total of 4 grams. 7. Congestive hepatopathy. Patient's liver enzymes are getting better with improvement in her congestive heart failure and volume status. 8. Metabolic alkalosis. It is secondary to aggressive diuresis and slight volume depletion. IV diuretics were stopped today morning. She has been switched to oral torsemide. Total critical care time spent in the management of this patient today morning in the ICU was 50 minutes. MTDD
[2019-03-20] MEDS ORDERED: AcetaZOLAMIDE 500MG INJECTION (J1120) IV ONE (09:45)
--- NOTE | 2019-03-20 13:16 | IPN ---
DATE: 03/20/2019 SUBJECTIVE: The patient was seen and examined the bedside today morning in the intensive care unit (ICU). The patient was sitting up and nursing staff was trying to get her out of bed into chair. Renal function continues to improve. She still has a very good urine output. Intravenous (IV) diuretics were stopped yesterday. She was switched to torsemide. Metabolic alkalosis is worse today as compared with yesterday. Liver function continues to improve. She is not requiring any inotropic support at this time, and blood pressures are soft but stable in low 100s. She did not require any more dose of digoxin. Heart rates are stable and low in 90s. The patient reports feeling weak. Otherwise she denies any active complaints. She was started on heparin drip yesterday. INR was supratherapeutic, so it was held and started with a lower dose after a few hours. OBJECTIVE: Vital signs: Temperature is 98 degrees Fahrenheit, blood pressure 110/61, pulse 94, respiratory of 18, saturating 96% on nasal cannula at 2 liters. Intake and output: Urine output recorded is 1.5 liters yesterday, 750 mL so far today since overnight. Weight in the bed scale is 66.4 kg. PHYSICAL EXAMINATION: GENERAL: The patient is mildly lethargic, sitting up in the bed but otherwise follows commands and able to communicate. HEAD AND NECK: Extraocular muscles intact. Pupils equally round and reactive to light. Mucous membranes are moist. Neck is supple. She has a right internal jugular (IJ) triple-lumen catheter. Mild amount of the jugular venous distention (JVD) was noted. CARDIOVASCULAR: S1, S2, tachycardia. No edema of the bilateral lower extremities. RESPIRATORY: Chest is clear to auscultation bilaterally. Bilateral equal air entry. No rales or rhonchi. ABDOMEN: Soft, obese, positive bowel sounds. Nontender. GENITOURINARY: She has an indwelling Adkins catheter. MUSCULOSKELETAL: No clubbing or cyanosis. Pulses are 2+. CENTRAL NERVOUS SYSTEM: The patient is slightly drowsy, otherwise follows commands and moves extremities. LABORATORY REVIEW: CBC showed WBC of 11.1, hemoglobin 13.5, platelets of 123. PTT was more than 240 in the morning. Repeat one is pending. ABG done today morning showed a pH of 7.5, pCO2 of 36, pO2 of 65, bicarbonate 32, oxygen saturation is 94.6%. BMP done today morning showed sodium 136, potassium 3.7, chloride 93, bicarbonate 38, BUN 18, creatinine is 0.92, calcium 7.5, phosphorus 1.6, magnesium 1.9. Total bilirubin 1.3, AST 179, ALT 364, alkaline phosphatase is 162, albumin is 2.3. CURRENT INPATIENT MEDICATIONS: The patient's medications were all reviewed by me. Because of metabolic alkalosis, I have stopped her oral torsemide. Heparin drip continues with a lower dose. She was given a dose of magnesium sulfate 1 gram IV every 1 hour for a total of four bags yesterday. She continues to be on meropenem. She was given potassium phosphate 30 millimole IV times one dose. I have ordered a dose of acetazolamide 500 mg IV times one dose. ASSESSMENT AND PLAN: 1. Acute kidney injury. It was cardiorenal in nature. With aggressive diuresis and improvement in the volume status, patient's renal function has improved back to her baseline. 2. Acute decompensated cor pulmonale. The patient is not requiring milrinone infusion at this time. She initially was diuresed with IV diuretics. She was on torsemide yesterday; however, because of metabolic alkalosis I am holding the diuretics for tonight. 3. Metabolic alkalosis. It is secondary to intravascular volume depletion and aggressive diuresis. Loop diuretics are being held. The patient will be given a dose of acetazolamide 500 mg IV times one dose. 4. Bilateral deep vein thrombosis (DVT). The patient was started on heparin drip. PTT was supratherapeutic. Lower dose of heparin has been started now. She is status post inferior vena cava (IVC) filter placement. 5. Hypophosphatemia. The patient was already given K-Phos 30 millimole IV times one dose. 6. Congestive hepatopathy. The patient's liver function is slowly improving. Bilirubin is down to 1.3. AST, ALT, and alkaline phosphatase are also improving in the right direction.
[2019-03-20] MEDS: HEPARIN DRIP 25,000 UNITS in IV 1 EA IV SCH (13:32)
[2019-03-20] MEDS: SODIUM CHLORIDE 0.9% INJ 10 ML SYR IV SCH ×2 (14:00→20:51)
[2019-03-20] MEDS ORDERED: SODIUM CHLORIDE 0.9% INJ 10 ML SYR IV PRN (14:00)
--- NOTE | 2019-03-20 18:44 | IPNPDOC ---
Date Seen The patient was seen on 03/20/19. Progress Note SUBJECTIVE: 68-year-old female with past medical history of ankles spondylitis, Sjogren's, hypertension, GERD, fibromyalgia, was admitted for severe right heart failure. Patient has been treated in the ICU setting with IV Lasix, dobutamine, which is now been switched to milrinone for inotropic support with good response. Clinically, patient has improved since admission, labs have also continued to improve with diuresis and improved cardiac output. Etiology for right heart failure, unknown, likely chronic with acute worsening due to PE/hypervolemia. Patient currently comfortable, denies any significant short of breath, chest pain, nausea, vomiting, abdominal pain or diarrhea. 10 point review of system is negative except for above 03/18/2019 Patient slightly confused in the morning, reports improvement in dyspnea, no other complaints at this time. She is scheduled to undergo IVC filter placement later today. 03/19/2019 Patient comfortable in bed, wishes to go home, reports improvement in shortness of breath, no other complaints at this time. 03/20/2019 Patient comfortable, denies any dyspnea, no other complaints, Adkins removed, downgraded to MedSurg. PHYSICAL EXAMINATION: VITAL SIGNS: Please see below. GENERAL: No distress HEENT: Normocephalic, atraumatic, moist mucous membranes NECK: Positive JVD CARDIOVASCULAR EXAMINATION: S1, S2, tachycardic, regular RESPIRATORY EXAMINATION: Clear to auscultation, diminished, no wheezing ABDOMINAL EXAMINATION: Soft, nontender, nondistended, positive bowel sounds EXTREMITIES: Range of motion intact SKIN: No rash NEUROLOGICAL EXAMINATION: Alert and oriented 3, no focal deficits PSYCHIATRIC EXAMINATION: Calm and cooperative LABORATORY DATA, IMAGING STUDIES, MICROBIOLOGY: Please see below. Echocardiogram: Severely elevated right ventricular systolic pressure with hypokinesis/akinesis of the right ventricle. DVT prophylaxis ordered?: Yes ASSESSMENT AND PLAN: 68-year-old female with past medical history of ankylosing spondylitis, Sjogren's, hypertension, GERD, fibromyalgia is admitted for severe right heart failure. PROBLEMS: 1. Acute decompensated cor pulmonale: No prior history, likely undiagnosed, lower extremity Doppler positive for bilateral DVT, which raises suspicion for type IV, acute PE may have been the cause of acute decompensation. Status post aggressive diuresis with Lasix drip and inotropes, now with contraction alkalosis, diuretics being held, received a dose of Diamox. Status post IVC filter placement, continue heparin drip. 2. Acute kidney injury: Cardiorenal syndrome secondary, renal function within normal limits, Lasix drip discontinued, diuretics being held due to contraction alkalosis. 3. Atrial fibrillation: On heparin drip for anticoagulation. DVT prophylaxis: Heparin subcutaneous GI prophylaxis: PPI VS, I&O, 24H, Fishbone Vital Signs/I&O Vital Signs Date Time Temp Pulse Resp B/P (MAP) Pulse Ox O2 Delivery O2 Flow Rate FiO2 03/20/19 15:00 97.8 93 20 118/59 (78) 93 Nasal Cannula 2.0 03/18/19 22:30 50 I&O- Last 24 Hours up to 6 AM 03/20/19 06:00 Intake Total 1338 ml Output Total 2075 ml Balance -737 ml Laboratory Data 24H LABS Laboratory Tests 2 03/20/19 02:14: Activated Partial Thromboplast Time > 240.0*H 03/20/19 03:17: Activated Partial Thromboplast Time > 240.0*H 03/20/19 04:59: Nucleated Red Blood Cells % (auto) 0.2H 03/20/19 05:00: Anion Gap 5L, Glomerular Filtration Rate > 60.0, Calcium Level 7.5L, Phosphorus Level 1.6#L, Magnesium Level 1.9, Total Bilirubin 1.3H, Aspartate Amino Transf (AST/SGOT) 179H, Alanine Aminotransferase (ALT/SGPT) 364H, Alkaline Phosphatase 162H, Total Protein 5.6L, Albumin 2.3L, Albumin/Globulin Ratio 0.70L 03/20/19 08:25: Blood Gas Bicarbonate Standard 32.7H, Arterial Blood pH 7.559H, Arterial Blood Partial Pressure CO2 36.1, Arterial Blood Partial Pressure O2 65.7L, Arterial Blood Total CO2 32.6H, Arterial Blood HCO3 31.5H, Arterial Blood Base Excess 9.0H, Arterial Blood Oxygen Saturation 94.6L 03/20/19 10:40: Activated Partial Thromboplast Time > 240.0*H 03/20/19 11:51: Activated Partial Thromboplast Time 127.9*H 03/20/19 18:09: Activated Partial Thromboplast Time 93.4H CBC/BMP Laboratory Tests 03/20/19 04:59 03/20/19 05:00 Microbiology Microbiology 03/16/19 Urine Culture - Final, Complete 03/16/19 Blood Culture - Preliminary, Resulted No Growth after 72 hours. All specime... 03/16/19 Blood Culture - Preliminary, Resulted No Growth after 72 hours. All specime... JOSHUA OCHOA MD Mar 20, 2019 18:44
[2019-03-20] MEDS: GABAPENTIN 300 MG CAP PO SCH (20:50)
[2019-03-20] MEDS: OMEPRAZOLE 20 MG CAP PO SCH (20:50)
[2019-03-20] MEDS: FOLIC ACID 1 MG TAB PO SCH (20:50)
[2019-03-20] MEDS ORDERED: IBUPROFEN 800 MG TAB PO PRN (22:00)
[2019-03-21 00:07] LABS: ANTI CENTROMERE ANTIBODY <0.2 AI (0.0-0.9); ANTI DOUBLE STRAND-DNA AB <1 IU/mL (0-9); ANTI SCLERODERMA ANTIBODIES <0.2 AI (0.0-0.9); ANTINUCLEAR ANTIBODIES DIRECT Positive (Negative); RNP ANTIBODIES 0.9 AI (0.0-0.9); SJOGREN'S ANTI SS-A <0.2 AI (0.0-0.9); SJOGREN'S ANTI SS-B 4.1 AI (0.0-0.9); SMITH ANTIBODIES <0.2 AI (0.0-0.9)
[2019-03-21 02:00] VITALS: BP 132/70
[2019-03-21 06:00] VITALS: BP 136/73
[2019-03-21] MEDS: SODIUM CHLORIDE 0.9% INJ 10 ML SYR IV SCH (06:10)
[2019-03-21 07:53] LABS: HEMATOCRIT 44.5 % (36.0-47.0); HEMOGLOBIN 14.2 g/dl (12.0-15.5); MEAN CORPUSCULAR HGB CONC 31.9 g/dl (32.0-36.5); MEAN CORPUSCULAR VOLUME 87.8 fl (80.0-96.0); PLATELET COUNT, AUTOMATED 105 10^3/uL (150-450); RED BLOOD COUNT 5.07 10^6/uL (4.00-5.40); WHITE BLOOD COUNT 8.8 10^3/uL (4.0-10.0)
[2019-03-21 08:19] LABS: BLOOD UREA NITROGEN 19 MG/DL (7-18); CALCIUM LEVEL 7.9 MG/DL (8.8-10.2); CARBON DIOXIDE LEVEL 33 MEQ/L (21-32); CHLORIDE LEVEL 93 MEQ/L (98-107); CREATININE FOR GFR 0.85 MG/DL (0.55-1.30); GLOMERULAR FILTRATION RATE > 60.0 (>39); GLUCOSE, FASTING 90 MG/DL (70-100); MAGNESIUM LEVEL 1.9 MG/DL (1.8-2.4); POTASSIUM SERUM 3.2 MEQ/L (3.5-5.1); SODIUM LEVEL 135 MEQ/L (136-145)
[2019-03-21] MEDS: POTASSIUM CHLORIDE 10 MEQ SR TABLET PO SCH ×2 (08:43→12:13)
[2019-03-21] MEDS ORDERED: ELIQ5TAB PO (09:59)
[2019-03-21 10:00] VITALS: BP 121/68
--- NOTE | 2019-03-21 10:49 | IPNPDOC ---
Date Seen The patient was seen on 03/21/19. Progress Note SUBJECTIVE: 68-year-old female with past medical history of ankles spondylitis, Sjogren's, hypertension, GERD, fibromyalgia, was admitted for severe right heart failure. Patient has been treated in the ICU setting with IV Lasix, dobutamine, which is now been switched to milrinone for inotropic support with good response. Clinically, patient has improved since admission, labs have also continued to improve with diuresis and improved cardiac output. Etiology for right heart failure, unknown, likely chronic with acute worsening due to PE/hypervolemia. Patient currently comfortable, denies any significant short of breath, chest pain, nausea, vomiting, abdominal pain or diarrhea. 10 point review of system is negative except for above 03/18/2019 Patient slightly confused in the morning, reports improvement in dyspnea, no other complaints at this time. She is scheduled to undergo IVC filter placement later today. 03/19/2019 Patient comfortable in bed, wishes to go home, reports improvement in shortness of breath, no other complaints at this time. 03/20/2019 Patient comfortable, denies any dyspnea, no other complaints, Adkins removed, downgraded to MedSurg. 03/21/2019 Patient comfortable, requesting to go home, PT recommends rehabilitation placement, patient without any other complaints. PHYSICAL EXAMINATION: VITAL SIGNS: Please see below. GENERAL: No distress HEENT: Normocephalic, atraumatic, moist mucous membranes NECK: Positive JVD CARDIOVASCULAR EXAMINATION: S1, S2, tachycardic, regular RESPIRATORY EXAMINATION: Clear to auscultation, diminished, no wheezing ABDOMINAL EXAMINATION: Soft, nontender, nondistended, positive bowel sounds EXTREMITIES: Range of motion intact SKIN: No rash NEUROLOGICAL EXAMINATION: Alert and oriented 3, no focal deficits PSYCHIATRIC EXAMINATION: Calm and cooperative LABORATORY DATA, IMAGING STUDIES, MICROBIOLOGY: Please see below. Echocardiogram: Severely elevated right ventricular systolic pressure with hypokinesis/akinesis of the right ventricle. DVT prophylaxis ordered?: Yes ASSESSMENT AND PLAN: 68-year-old female with past medical history of ankylosing spondylitis, Sjogren's, hypertension, GERD, fibromyalgia is admitted for severe right heart failure. PROBLEMS: 1. Acute decompensated cor pulmonale: No prior history, likely undiagnosed, lower extremity Doppler positive for bilateral DVT, which raises suspicion for type IV, acute PE may have been the cause of acute decompensation. Status post aggressive diuresis with Lasix drip and inotropes, optimizing oral diuretic regimen. Status post IVC filter placement, continue heparin drip switched to Eliquis. 2. Acute kidney injury: Cardiorenal syndrome secondary, renal function within normal limits, Lasix drip discontinued, oral diuretic regimen being adjusted. 3. Atrial fibrillation: Eliquis for anticoagulation, rate controlled without medication. DVT prophylaxis: Eliquis GI prophylaxis: PPI VS, I&O, 24H, Fishbone Vital Signs/I&O Vital Signs Date Time Temp Pulse Resp B/P (MAP) Pulse Ox O2 Delivery O2 Flow Rate FiO2 03/21/19 09:00 2.0 03/21/19 06:00 98.4 86 18 136/73 (94) 91 Nasal Cannula 03/18/19 22:30 50 I&O- Last 24 Hours up to 6 AM 03/21/19 06:00 Intake Total 1531 ml Output Total 1895 ml Balance -364 ml Laboratory Data 24H LABS Laboratory Tests 2 03/20/19 11:51: Activated Partial Thromboplast Time 127.9*H 03/20/19 18:09: Activated Partial Thromboplast Time 93.4H 03/20/19 23:40: Activated Partial Thromboplast Time 184.7*H 03/21/19 07:26: Activated Partial Thromboplast Time 43.9H, Nucleated Red Blood Cells % (auto) 0.0, Anion Gap 9, Glomerular Filtration Rate > 60.0, Calcium Level 7.9L, Phosphorus Level 3.0#, Magnesium Level 1.9 CBC/BMP Laboratory Tests 03/21/19 07:26 Microbiology Microbiology 03/16/19 Urine Culture - Final, Complete 03/16/19 Blood Culture - Final, Complete NO GROWTH AFTER 5 DAYS 03/16/19 Blood Culture - Final, Complete NO GROWTH AFTER 5 DAYS JOSHUA OCHOA MD Mar 21, 2019 10:49
[2019-03-21] MEDS: APIXABAN 5 MG TAB (ELIQUIS) PO SCH ×2 (12:12→20:08)
[2019-03-21] MEDS: aMILoride 5 MG TAB PO SCH (12:12)
[2019-03-21] MEDS: TORSEMIDE 20 MG TAB PO SCH (12:12)
[2019-03-21] MEDS: ACETAMINOPHEN TAB 650MG DOSE (2X325MG) PO PRN (12:13)
[2019-03-21 14:00] VITALS: BP_SYST 110; BP_SYST 121; BP_DIAS 59; BP_DIAS 68
--- NOTE | 2019-03-21 14:20 | IPN ---
DATE OF SERVICE: 03/21/2019 SUBJECTIVE: The patient was seen and examined at the bedside today morning. Her and family members were also present at the bedside. She was sitting on the sofa today. She still has an indwelling Adkins catheter. Renal function is stable. She was given a dose of acetazolamide yesterday because of metabolic alkalosis. Alkalosis is getting better with a serum bicarb of 33 today. IV heparin drip has been stopped. The patient has been switched to oral Eliquis now. She still has persistent hypokalemia and getting oral potassium supplementation. The patient is pending evaluation by physical therapy today. OBJECTIVE: Vital signs: Temperature is 97.3 degrees Fahrenheit, blood pressure 121/68, pulse is 84, respiratory rate of 18, saturating 92% on nasal cannula at 2 liters. Intake and output - urine output recorded as 2.3 liters yesterday, 258 mL so far today since overnight. Weight in the bed scale is 64.6 kg. PHYSICAL EXAMINATION: General: The patient is awake, alert, oriented times three, sitting up on the sofa, in no apparent distress. Head and neck exam: Extraocular muscles intact. Pupils equally round and reactive to light. Mucous membranes are moist. Neck is supple. There is very mild elevation of jugular venous distention (JVD). Cardiovascular: S1, S1, regular rate. No edema of the bilateral lower extremities. Respiratory: Chest is clear to auscultation bilaterally. Bilateral equal air entry. No rales or rhonchi. Abdomen: Soft, obese, positive bowel sounds, nontender. No organomegaly. Genitourinary: She has an indwelling Adkins catheter. Musculoskeletal: No clubbing or cyanosis. Pulses are 2+. RETAIL PRESENTATION SPECIALIST: No focal deficit. Power is 5/5 in all extremities. LAB REVIEW: CBC showed a WBC of 8.8, hemoglobin 14.2, platelets of 105. BMP showed sodium 135, potassium 3.2, chloride 93, bicarb 33, BUN 19, creatinine is 0.85, calcium 7.9, phosphorus is 3, magnesium 1.9. CURRENT INPATIENT MEDICATIONS: The patient's medications were all reviewed by myself. She is being given potassium chloride 40 mEq times two doses today, 4 hours apart. IV antibiotics have been stopped. IV heparin has been stopped. She has been started on Eliquis 10 mg by mouth twice a day starting today. I have started the patient on torsemide 20 mg daily and amiloride 5 mg by mouth daily. ASSESSMENT AND PLAN: 1. Chronic kidney disease stage 3. Patient's renal function has improved back to baseline, actually GFR is more than 60 now, creatinine is 0.8 which is close to her baseline. 2. Cor pulmonale. The patient was admitted with decompensated cor pulmonale. At this time volume status is optimized. She will be discharged home on torsemide 20 mg daily and amiloride 5 mg by mouth daily. Etiology was most likely secondary to chronic pulmonary embolism. 3. Hypokalemia. The patient is getting two doses of potassium chloride which will optimize the potassium levels and for home she is being started on amiloride. 4. Metabolic alkalosis. The patient had contraction alkalosis, she was given acetazolamide 5 mg IV yesterday, bicarb level has improved considerably. Amiloride he is being started to help with loop diuretic induced hypokalemia and metabolic alkalosis as well. 5. Bilateral deep venous thromboses (DVT). IV heparin has been stopped. The patient has been started on oral Eliquis. Dose is adequate for renal function. 6. Disposition. The patient is okay to be discharged from nephrology standpoint. Adkins catheter is being removed if she passes physical therapy. She can followup with nephrology within 2 weeks after discharge from the hospital.
[2019-03-21] MEDS: OMEPRAZOLE 20 MG CAP PO SCH (20:08)
[2019-03-21] MEDS: FOLIC ACID 1 MG TAB PO SCH (20:08)
[2019-03-21] MEDS: GABAPENTIN 300 MG CAP PO SCH (20:08)
[2019-03-21 22:00] VITALS: BP 124/68
[2019-03-22] MEDS: ACETAMINOPHEN TAB 650MG DOSE (2X325MG) PO PRN ×3 (03:36→23:07)
[2019-03-22 05:49] LABS: HEMATOCRIT 40.8 % (36.0-47.0); HEMOGLOBIN 12.9 g/dl (12.0-15.5); MEAN CORPUSCULAR HEMOGLOBIN 27.4 pg (27.0-33.0); MEAN CORPUSCULAR HGB CONC 31.6 g/dl (32.0-36.5); MEAN CORPUSCULAR VOLUME 86.8 fl (80.0-96.0); PLATELET COUNT, AUTOMATED 119 10^3/uL (150-450); WHITE BLOOD COUNT 10.4 10^3/uL (4.0-10.0)
[2019-03-22 06:00] VITALS: BP 133/63
[2019-03-22 06:16] LABS: ALBUMIN 2.2 GM/DL (3.2-5.2); ALT/SGPT 162 U/L (12-78); BILIRUBIN,TOTAL 1.4 MG/DL (0.2-1.0); BLOOD UREA NITROGEN 23 MG/DL (7-18); CARBON DIOXIDE LEVEL 29 MEQ/L (21-32); CHLORIDE LEVEL 98 MEQ/L (98-107); CREATININE FOR GFR 0.94 MG/DL (0.55-1.30); GLOMERULAR FILTRATION RATE > 60.0 (>39); GLUCOSE, FASTING 94 MG/DL (70-100); MAGNESIUM LEVEL 1.9 MG/DL (1.8-2.4); SODIUM LEVEL 134 MEQ/L (136-145); TOTAL PROTEIN 5.7 GM/DL (6.4-8.2)
[2019-03-22] MEDS: APIXABAN 5 MG TAB (ELIQUIS) PO SCH ×2 (08:13→21:25)
[2019-03-22] MEDS: TORSEMIDE 20 MG TAB PO SCH (08:13)
[2019-03-22] MEDS: aMILoride 5 MG TAB PO SCH (08:13)
--- NOTE | 2019-03-22 09:45 | IPNPDOC ---
Date Seen The patient was seen on 03/22/19. Progress Note SUBJECTIVE: 68-year-old female with past medical history of ankles spondylitis, Sjogren's, hypertension, GERD, fibromyalgia, was admitted for severe right heart failure. Patient has been treated in the ICU setting with IV Lasix, dobutamine, which is now been switched to milrinone for inotropic support with good response. Clinically, patient has improved since admission, labs have also continued to improve with diuresis and improved cardiac output. Etiology for right heart failure, unknown, likely chronic with acute worsening due to PE/hypervolemia. Patient currently comfortable, denies any significant short of breath, chest pain, nausea, vomiting, abdominal pain or diarrhea. 10 point review of system is negative except for above 03/18/2019 Patient slightly confused in the morning, reports improvement in dyspnea, no other complaints at this time. She is scheduled to undergo IVC filter placement later today. 03/19/2019 Patient comfortable in bed, wishes to go home, reports improvement in shortness of breath, no other complaints at this time. 03/20/2019 Patient comfortable, denies any dyspnea, no other complaints, Adkins removed, downgraded to MedSurg. 03/21/2019 Patient comfortable, requesting to go home, PT recommends rehabilitation placement, patient without any other complaints. 03/22/2019 Patient comfortable without any complaints at this time, ambulating with assist ance, tolerating diet. PHYSICAL EXAMINATION: VITAL SIGNS: Please see below. GENERAL: No distress HEENT: Normocephalic, atraumatic, moist mucous membranes NECK: Positive JVD CARDIOVASCULAR EXAMINATION: S1, S2, tachycardic, regular RESPIRATORY EXAMINATION: Clear to auscultation, diminished, no wheezing ABDOMINAL EXAMINATION: Soft, nontender, nondistended, positive bowel sounds EXTREMITIES: Range of motion intact SKIN: No rash NEUROLOGICAL EXAMINATION: Alert and oriented 3, no focal deficits PSYCHIATRIC EXAMINATION: Calm and cooperative LABORATORY DATA, IMAGING STUDIES, MICROBIOLOGY: Please see below. Echocardiogram: Severely elevated right ventricular systolic pressure with hypokinesis/akinesis of the right ventricle. DVT prophylaxis ordered?: No ASSESSMENT AND PLAN: 68-year-old female with past medical history of ankylosing spondylitis, Sjogren's, hypertension, GERD, fibromyalgia is admitted for severe right heart failure. PROBLEMS: 1. Acute decompensated cor pulmonale: No prior history, likely undiagnosed, lower extremity Doppler positive for bilateral DVT, which raises suspicion for type IV, acute PE may have been the cause of acute decompensation. Status post aggressive diuresis with Lasix drip and inotropes, continue torsemide and amiloride. Status post IVC filter p lacement, continue Eliquis. 2. Acute kidney injury: Cardiorenal syndrome, resolved after aggressive diuresis, continue torsemide and amiloride. 3. Atrial fibrillation: Eliquis for anticoagulation, rate controlled without medication. DVT prophylaxis: Eliquis GI prophylaxis: PPI VS, I&O, 24H, Fishbone Vital Signs/I&O Vital Signs Date Time Temp Pulse Resp B/P (MAP) Pulse Ox O2 Delivery O2 Flow Rate FiO2 03/22/19 06:00 96.7 76 15 133/63 (86) 91 Room Air 03/21/19 16:00 2.0 03/18/19 22:30 50 I&O- Last 24 Hours up to 6 AM 03/22/19 06:00 Intake Total 1080 ml Output Total 200 ml Balance 880 ml Laboratory Data 24H LABS Laboratory Tests 2 03/22/19 05:19: Nucleated Red Blood Cells % (auto) 0.0, Anion Gap 7L, Glomerular Filtration Rate > 60.0, Calcium Level 8.0L, Magnesium Level 1.9, Total Bilirubin 1.4H, Aspartate Amino Transf (AST/SGOT) 56H, Alanine Aminotransferase (ALT/SGPT) 162H, Alkaline Phosphatase 128H, Total Protein 5.7L, Albumin 2.2L, Albumin/Globulin Ratio 0.63L CBC/BMP Laboratory Tests 03/22/19 05:19 Microbiology Microbiology 03/16/19 Urine Culture - Final, Complete 03/16/19 Blood Culture - Final, Complete NO GROWTH AFTER 5 DAYS 03/16/19 Blood Culture - Final, Complete NO GROWTH AFTER 5 DAYS JOSHUA OCHOA MD Mar 22, 2019 09:45
[2019-03-22 10:00] VITALS: BP 133/73
[2019-03-22 14:00] VITALS: BP 125/73
[2019-03-22 18:00] VITALS: BP 124/69
--- NOTE | 2019-03-22 19:39 | IPN ---
DATE: 03/22/2019 SUBJECTIVE: Ann Marie seen, examined this morning at the bedside, tells me that she was able to ambulate from the bed to the bathroom, which is the most she has done since admission. Her Adkins catheter was removed and she denies any trouble emptying her bladder, but she does note that she has been continent of urine. Temperature 96.7, pulse 76, respiratory rate 15, blood pressure 133/63, saturating 91-92% on room air. Intake yesterday was a liter. Urine output was not recorded. Weight in the bed scale today is not recorded. General: The patient is seen lying in bed, elderly female awake, alert, oriented no acute distress. Extraocular muscles are intact. Tongue is moist. Neck is supple. Jugular veins are only mildly elevated cardiac defer this to regular rate. No edema in the bilateral lower extremities and no dependent edema either. Respiratory: Symmetric air entry bilaterally. No crackle, rale or rhonchus. Abdomen is soft and nontender. There are bowel sounds. Genitourinary: She no longer has a Adkins catheter. Musculoskeletal: No clubbing, cyanosis or edema. Neurologic: She is oriented to person, place, situation and cooperative with physical exam LABORATORY DATA: White count 10.4, hemoglobin 12.9, platelet 119, sodium 134, potassium 4.0, bicarbonate 29, BUN 23, creatinine 0.9. INPATIENT MEDICATIONS: Reviewed by myself and no change from prior PROBLEMS: 1. Acute kidney injury superimposed on chronic kidney disease (CKD) stage II/ borderline stage III. The patient's baseline creatinine is around 1 and renal function has recovered to baseline. Volume status and electrolytes are acceptable and I am making no changes to the present diuretic regimen of torsemide and amiloride. 2. Right heart failure now with improved volume status. The patient is on room air. Her daily weights have down trended. Her urine output is no longer being fully recorded since her Adkins catheter was removed and she does have incontinence of urine. Continue 2 grams sodium diet with fluid restriction and torsemide and amiloride. Her fluid restriction can be mildly increased to 1500 mL on eventual discharge as she is unlikely to be able to tolerate a 1200 mL fluid restriction. 3. Hypokalemia. It has resolved and she is already on a potassium sparing diuretic and she is unlikely to need further oral potassium supplementation and oral potassium has been discontinued. 4. Bilateral deep vein thrombosis (DVT). She is now on Eliquis. 5. Disposition. Nephrology is signing off. Please reconsult as needed.
[2019-03-22] MEDS: OMEPRAZOLE 20 MG CAP PO SCH (21:24)
[2019-03-22] MEDS: FOLIC ACID 1 MG TAB PO SCH (21:25)
[2019-03-22] MEDS: GABAPENTIN 300 MG CAP PO SCH (21:25)
[2019-03-22 22:00] VITALS: BP 123/69
[2019-03-23 02:00] VITALS: BP 122/64
[2019-03-23 06:00] VITALS: BP 139/76
[2019-03-23 06:20] LABS: HEMATOCRIT 39.6 % (36.0-47.0); HEMOGLOBIN 13.2 g/dl (12.0-15.5); MEAN CORPUSCULAR HEMOGLOBIN 28.4 pg (27.0-33.0); MEAN CORPUSCULAR HGB CONC 33.3 g/dl (32.0-36.5); MEAN CORPUSCULAR VOLUME 85.3 fl (80.0-96.0); PLATELET COUNT, AUTOMATED 159 10^3/uL (150-450); RED BLOOD COUNT 4.64 10^6/uL (4.00-5.40); WHITE BLOOD COUNT 10.2 10^3/uL (4.0-10.0)
[2019-03-23 06:46] LABS: ALBUMIN 2.3 GM/DL (3.2-5.2); ALT/SGPT 124 U/L (12-78); BILIRUBIN,TOTAL 1.1 MG/DL (0.2-1.0); BLOOD UREA NITROGEN 22 MG/DL (7-18); CARBON DIOXIDE LEVEL 28 MEQ/L (21-32); CHLORIDE LEVEL 101 MEQ/L (98-107); CREATININE FOR GFR 0.93 MG/DL (0.55-1.30); GLOMERULAR FILTRATION RATE > 60.0 (>39); GLUCOSE, FASTING 89 MG/DL (70-100); PHOSPHORUS LEVEL 2.7 MG/DL (2.5-4.9); POTASSIUM SERUM 3.6 MEQ/L (3.5-5.1); SODIUM LEVEL 137 MEQ/L (136-145); TOTAL PROTEIN 6.1 GM/DL (6.4-8.2)
[2019-03-23] MEDS ORDERED: POTASSIUM CHLORIDE 10 MEQ SR TABLET PO ONE (08:30)
[2019-03-23] MEDS: APIXABAN 5 MG TAB (ELIQUIS) PO SCH ×2 (09:17→20:16)
[2019-03-23] MEDS: TORSEMIDE 20 MG TAB PO SCH (09:18)
[2019-03-23] MEDS: aMILoride 5 MG TAB PO SCH (09:18)
[2019-03-23 10:00] VITALS: BP 135/76
--- NOTE | 2019-03-23 20:04 | IPNPDOC ---
Date Seen The patient was seen on 03/23/19. Progress Note SUBJECTIVE: 68-year-old female with past medical history of ankles spondylitis, Sjogren's, hypertension, GERD, fibromyalgia, was admitted for severe right heart failure. Patient has been treated in the ICU setting with IV Lasix, dobutamine, which is now been switched to milrinone for inotropic support with good response. Clinically, patient has improved since admission, labs have also continued to improve with diuresis and improved cardiac output. Etiology for right heart failure, unknown, likely chronic with acute worsening due to PE/hypervolemia. Patient currently comfortable, denies any significant short of breath, chest pain, nausea, vomiting, abdominal pain or diarrhea. 10 point review of system is negative except for above 03/18/2019 Patient slightly confused in the morning, reports improvement in dyspnea, no other complaints at this time. She is scheduled to undergo IVC filter placement later today. 03/19/2019 Patient comfortable in bed, wishes to go home, reports improvement in shortness of breath, no other complaints at this time. 03/20/2019 Patient comfortable, denies any dyspnea, no other complaints, Adkins removed, downgraded to MedSurg. 03/21/2019 Patient comfortable, requesting to go home, PT recommends rehabilitation placement, patient without any other complaints. 03/22/2019 Patient comfortable without any complaints at this time, ambulating with assist ance, tolerating diet. 03/23/2019 Patient comfortable in bed, more active, without any complaints, awaiting acute rehabilitation unit placement. PHYSICAL EXAMINATION: VITAL SIGNS: Please see below. GENERAL: No distress HEENT: Normocephalic, atraumatic, moist mucous membranes NECK: Positive JVD CARDIOVASCULAR EXAMINATION: S1, S2, tachycardic, regular RESPIRATORY EXAMINATION: Clear to auscultation, diminished, no wheezing ABDOMINAL EXAMINATION: Soft, nontender, nondistended, positive bowel sounds EXTREMITIES: Range of motion intact SKIN: No rash NEUROLOGICAL EXAMINATION: Alert and oriented 3, no focal deficits PSYCHIATRIC EXAMINATION: Calm and cooperative LABORATORY DATA, IMAGING STUDIES, MICROBIOLOGY: Please see below. Echocardiogram: Severely elevated right ventricular systolic pressure with hypokinesis/akinesis of the right ventricle. DVT prophylaxis ordered?: No ASSESSMENT AND PLAN: 68-year-old female with past medical history of ankylosing spondylitis, Sjogren's, hypertension, GERD, fibromyalgia is admitted for severe right heart failure. PROBLEMS: 1. Acute decompensated cor pulmonale: Now resolved, possibly caused by acute PE, Doppler positive for bilateral DVTs, status post aggressive diuresis with Lasix drip and inotropes, continue torsemide and amiloride. Status post IVC filter placement, continue Eliquis. Evaluated by physical therapy, rehabilitation recommended, awaiting placement to acute rehabilitation unit. 2. Acute kidney injury: Cardiorenal syndrome, resolved after aggressive diuresis, continue fluid restriction, torsemide and amiloride. 3. Atrial fibrillation: Eliquis for anticoagulation, rate controlled without medication. DVT prophylaxis: Eliquis GI prophylaxis: PPI VS, I&O, 24H, Fishbone Vital Signs/I&O Vital Signs Date Time Temp Pulse Resp B/P (MAP) Pulse Ox O2 Delivery O2 Flow Rate FiO2 03/23/19 10:00 98.5 84 12 135/76 (95) 93 Room Air 03/21/19 16:00 2.0 03/18/19 22:30 50 I&O- Last 24 Hours up to 6 AM 03/23/19 06:00 Intake Total 740 ml Output Total 700 ml Balance 40 ml Laboratory Data 24H LABS Laboratory Tests 2 03/23/19 05:57: Nucleated Red Blood Cells % (auto) 0.0, Anion Gap 8, Glomerular Filtration Rate > 60.0, Calcium Level 8.0L, Phosphorus Level 2.7, Magnesium Level 2.0, Total Bilirubin 1.1H, Aspartate Amino Transf (AST/SGOT) 43H, Alanine Aminotransferase (ALT/SGPT) 124H, Alkaline Phosphatase 135H, Total Protein 6.1L, Albumin 2.3L, Albumin/Globulin Ratio 0.61L CBC/BMP Laboratory Tests 03/23/19 05:57 Microbiology Microbiology 03/16/19 Urine Culture - Final, Complete 03/16/19 Blood Culture - Final, Complete NO GROWTH AFTER 5 DAYS 03/16/19 Blood Culture - Final, Complete NO GROWTH AFTER 5 DAYS JOSHUA OCHOA MD Mar 23, 2019 20:04
[2019-03-23] MEDS: OMEPRAZOLE 20 MG CAP PO SCH (20:16)
[2019-03-23] MEDS: ACETAMINOPHEN TAB 650MG DOSE (2X325MG) PO PRN (20:16)
[2019-03-23] MEDS: FOLIC ACID 1 MG TAB PO SCH (20:16)
[2019-03-23] MEDS: GABAPENTIN 300 MG CAP PO SCH (20:16)
[2019-03-23 22:00] VITALS: BP 124/69
[2019-03-24 06:00] VITALS: BP 120/71
[2019-03-24 06:21] LABS: HEMATOCRIT 45.2 % (36.0-47.0); HEMOGLOBIN 14.2 g/dl (12.0-15.5); MEAN CORPUSCULAR HEMOGLOBIN 27.5 pg (27.0-33.0); MEAN CORPUSCULAR HGB CONC 31.4 g/dl (32.0-36.5); MEAN CORPUSCULAR VOLUME 87.4 fl (80.0-96.0); PLATELET COUNT, AUTOMATED 184 10^3/uL (150-450); RED BLOOD COUNT 5.17 10^6/uL (4.00-5.40); WHITE BLOOD COUNT 10.9 10^3/uL (4.0-10.0)
[2019-03-24 06:36] LABS: BLOOD UREA NITROGEN 19 MG/DL (7-18); CALCIUM LEVEL 8.1 MG/DL (8.8-10.2); CARBON DIOXIDE LEVEL 23 MEQ/L (21-32); CHLORIDE LEVEL 105 MEQ/L (98-107); GLOMERULAR FILTRATION RATE > 60.0 (>39); GLUCOSE, FASTING 84 MG/DL (70-100); MAGNESIUM LEVEL 2.2 MG/DL (1.8-2.4); PHOSPHORUS LEVEL 2.8 MG/DL (2.5-4.9); POTASSIUM SERUM 4.2 MEQ/L (3.5-5.1); SODIUM LEVEL 135 MEQ/L (136-145)
[2019-03-24] MEDS: aMILoride 5 MG TAB PO SCH (08:41)
[2019-03-24] MEDS: TORSEMIDE 20 MG TAB PO SCH (08:42)
[2019-03-24] MEDS: APIXABAN 5 MG TAB (ELIQUIS) PO SCH (08:42)
[2019-03-24] MEDS ORDERED: AMIL5TAB4 PO (10:24)
[2019-03-24] MEDS ORDERED: TORS20TA2 PO (10:24)
[2019-03-24] MEDS ORDERED: ELIQ5TAB PO (10:24)
--- NOTE | 2019-03-24 10:32 | DS.PDOC ---
Discharge Summary General Date of Admission Mar 16, 2019 at 12:29 Date of Discharge 03/24/2019 Attending Physician: JOSHUA OCHOA MD Discharge Summary PROCEDURES PERFORMED DURING STAY: Central line placement. ADMITTING DIAGNOSES: 1. Acute decompensated cor pulmonale, bilateral DVT, cardiorenal syndrome, lactic acidosis. DISCHARGE DIAGNOSES: 1. Acute decompensated cor pulmonale, bilateral DVT, cardiorenal syndrome, lactic acidosis. COMPLICATIONS/CHIEF COMPLAINT: Cor Pulmonale,Lactic Acid Acidosis. HISTORY OF PRESENT ILLNESS: 68-year-old female with past medical history of pulmonary hypertension, and multiple rheumatological diseases was admitted for a daily, city cor pulmonale. She was admitted to the ICU and aggressively diuresed with Lasix drip and dobutamine/milrinone infusion. She responded well with good urine output and improvement in cardiac output with subsequent resolution of acute kidney injury caused by cardiorenal syndrome. She also presented with sig nificant lactic acidosis likely due to hypoperfusion from acute decompensated cor pulmonale, lactic acidosis resolved with aggressive diuresis. She was also found to have bilateral lower extremity DVTs, unable to have CTA due to acute kidney injury. Patient's acute presentation of decompensated cor pulmonale, possibly due to PEs. She was initially treated with an IVC filter, followed by heparin drip, being discharged on Eliquis for anti-coagulation. She was a value by physical therapy who recommended subacute rehabilitation, patient is clinically and hemodynamically stable for discharge and outpatient follow-up. HOSPITAL COURSE: As above. DISCHARGE MEDICATIONS: Please see below. ALLERGIES: Please see below. PHYSICAL EXAMINATION: VITAL SIGNS: Please see below. GENERAL: No distress HEENT: Normocephalic, atraumatic, moist mucous membranes NECK: Supple CARDIOVASCULAR EXAMINATION: S1, S2, regular RESPIRATORY EXAMINATION: Clear to auscultation, diminished, no wheezing ABDOMINAL EXAMINATION: Soft, nontender, nondistended, positive bowel sounds EXTREMITIES: Range of motion intact SKIN: No rash NEUROLOGICAL EXAMINATION: Alert and oriented 3, no focal deficits PSYCHIATRIC EXAMINATION: Calm and cooperative LABORATORY DATA: Please see below. PROGNOSIS: Guarded ACTIVITY: As tolerated. DIET: Cardiac with 1500 mL fluid restriction DISCHARGE PLAN: Patient will follow-up with bank cashier, cupola mechanic and PCP after discharge from rehabilitation DISPOSITION: Subacute rehabilitation at [facility] DISCHARGE INSTRUCTIONS: 1. As above. DISCHARGE CONDITION: Stable. TIME SPENT ON DISCHARGE: Greater than 35 minutes. Vital Signs/I&Os Vital Signs Date Time Temp Pulse Resp B/P (MAP) Pulse Ox O2 Delivery O2 Flow Rate FiO2 03/24/19 06:00 97.4 74 18 120/71 (87) 96 Room Air 03/21/19 16:00 2.0 03/18/19 22:30 50 I&O- Last 24 Hours up to 6 AM 03/24/19 06:00 Intake Total 1330 ml Output Total 550 ml Balance 780 ml Laboratory Data Labs 24H Laboratory Tests 2 03/24/19 05:55: Nucleated Red Blood Cells % (auto) 0.0, Anion Gap 7L, Glomerular Filtration Rate > 60.0, Calcium Level 8.1L, Phosphorus Level 2.8, Magnesium Level 2.2 CBC/BMP Laboratory Tests 03/24/19 05:55 Microbiology Microbiology 03/16/19 Urine Culture - Final, Complete 03/16/19 Blood Culture - Final, Complete NO GROWTH AFTER 5 DAYS 03/16/19 Blood Culture - Final, Complete NO GROWTH AFTER 5 DAYS Discharge Medications Scheduled Allopurinol (Allopurinol) 100 Mg Tab, 100 MG PO QHS, (Reported) Amiloride HCl (Amiloride HCl) 5 Mg Tablet, 5 MG PO DAILY Apixaban (Eliquis) 5 Mg Tablet, 10 MG PO BID Take 10 mg BID for 3 days followed by 5 mg BID. Atorvastatin Calcium (Atorvastatin Calcium) 20 Mg Tab, 20 MG PO QHS, (Reported) Baclofen (Baclofen) 10 Mg Tab, 10 MG PO QHS, (Reported) Ezetimibe (Zetia) 10 Mg Tab, 10 MG PO QHS, (Reported) Folic Acid (Folic Acid) 1 Mg Tab, 1 MG PO QHS, (Reported) Gabapentin (Neurontin) 300 Mg Cap, 300 MG PO QHS, (Reported) Methotrexate Sodium (Methotrexate) 2.5 Mg Tab, 15 MG PO QWEEK, (Reported) Saturday Mirabegron (Myrbetriq) 25 Mg Tab.er.24h, 25 MG PO QHS, (Reported) Omeprazole (Omeprazole) 40 Mg Cap, 40 MG PO QHS, (Reported) Torsemide (Torsemide) 20 Mg Tablet, 20 MG PO QAM Scheduled PRN Aspirin/Caffeine (Galina Back-Body 500-32.5 mg) 1 Each Tablet, 1 EACH PO QHS PRN for PAIN, (Reported) Prednisone (Prednisone) 20 Mg Tab, 20 MG PO for PAIN, (Reported) Miscellaneous Medications [Med Rec Comment] , (Reported) NO MEDS TAKEN FOR LAST 2 WEEKS, UNABLE TO KEEP ANYTHING DOWN Allergies Coded Allergies: Penicillins (Verified Allergy, Intermediate, Rash, 03/16/19) linezolid (Verified Allergy, Intermediate, Rash, Vomitting, 03/16/19) meperidine (Verified Adverse Reaction, Intermediate, Hallucinations, Vomitting, 03/16/19) JOSHUA OCHOA MD Mar 24, 2019 10:32
== END 2019-03-24 13:28 | DRG 982 ==
LOC: EDBD 07:08 → M ED 07:08 → M ED INP 12:29 → M PCU 14:17 → M ICU 18:37 → M MSPAV 03-20 14:35
PROVIDERS: ADMIT Internal Medicine; ATTEND Internal Medicine
PROC: 02HV33Z Insertion of Infusion Device into Superior Vena Cava, Percutaneous Approach (ICD-10-PCS; 2019-03-16)
PROC: 067 Lower Veins, Dilation (ICD-10-PCS; principal; 2019-03-18 11:00)
DX: I26.09 Other pulmonary embolism with acute cor pulmonale (principal); N17.9 Acute kidney failure, unspecified; E87.2 Acidosis; I82.411 Acute embolism and thrombosis of right femoral vein; I82.431 Acute embolism and thrombosis of right popliteal vein; I82.432 Acute embolism and thrombosis of left popliteal vein; E87.4 Mixed disorder of acid-base balance; I13.0 Hypertensive heart and chronic kidney disease with heart failure and stage 1 through stage 4 chronic kidney disease, or unspecified chronic kidney disease; M45.9 Ankylosing spondylitis of unspecified sites in spine; M79.7 Fibromyalgia; K21.9 Gastro-esophageal reflux disease without esophagitis; Z66 Do not resuscitate; E78.5 Hyperlipidemia, unspecified; M10.9 Gout, unspecified; F03.90 Unspecified dementia, unspecified severity, without behavioral disturbance, psychotic disturbance, mood disturbance, and anxiety; F32.9 Major depressive disorder, single episode, unspecified; K58.9 Irritable bowel syndrome, unspecified; I50.810 Right heart failure, unspecified; M35.00 Sjogren syndrome, unspecified; R07.89 Other chest pain; R74.0 Nonspecific elevation of levels of transaminase and lactic acid dehydrogenase [LDH]; I27.20 Pulmonary hypertension, unspecified; E83.39 Other disorders of phosphorus metabolism; N18.2 Chronic kidney disease, stage 2 (mild); R53.1 Weakness; K76.1 Chronic passive congestion of liver; H04.123 Dry eye syndrome of bilateral lacrimal glands; I73.00 Raynaud's syndrome without gangrene; D72.829 Elevated white blood cell count, unspecified; I48.0 Paroxysmal atrial fibrillation; Z86.14 Personal history of Methicillin resistant Staphylococcus aureus infection; Z90.49 Acquired absence of other specified parts of digestive tract; Z88.0 Allergy status to penicillin; Z88.8 Allergy status to other drugs, medicaments and biological substances; Z79.899 Other long term (current) drug therapy; Z87.440 Personal history of urinary (tract) infections

== ENCOUNTER → 2019-03-30 | Outpatient (REF) ==
[~2019-03-30] MED LIST changes: +AMIL5TAB4 PO; +ASPI81CH33 PO; +BAYE500T2 PO; +DETR1TAB3 PO; +DULC10SU2 PR; +ELIQ5TAB PO; +ENEMENE PR; +GABA-843 PO; +MAPA325T4 PO; +MED REC COMMENT; +MOM30SS PO; +MULTCAP PO; +MYRB25TA PO; +OMEP-218 PO; +OMEP-221 PO; +PPD5VL ID; +TORS20TA2 PO
[2019-03-30 08:52] LABS: HEMATOCRIT 47.2 % (36.0-47.0); HEMOGLOBIN 14.7 g/dl (12.0-15.5); MEAN CORPUSCULAR HEMOGLOBIN 27.4 pg (27.0-33.0); MEAN CORPUSCULAR HGB CONC 31.1 g/dl (32.0-36.5); MEAN CORPUSCULAR VOLUME 88.1 fl (80.0-96.0); PLATELET COUNT, AUTOMATED 469 10^3/uL (150-450); RED BLOOD COUNT 5.36 10^6/uL (4.00-5.40); WHITE BLOOD COUNT 11.6 10^3/uL (4.0-10.0)
[2019-03-30 09:18] LABS: ALBUMIN 2.8 GM/DL (3.2-5.2); BILIRUBIN,DIRECT 0.4 MG/DL (0.0-0.2); BILIRUBIN,TOTAL 1.1 MG/DL (0.2-1.0); CALCIUM LEVEL 8.7 MG/DL (8.8-10.2); CREATININE FOR GFR 1.26 MG/DL (0.55-1.30); GLOMERULAR FILTRATION RATE 44.7 (>39); PHOSPHORUS LEVEL 4.7 MG/DL (2.5-4.9); POTASSIUM SERUM 3.7 MEQ/L (3.5-5.1)
== END ==
LOC: SKLAB2 07:00
PROVIDERS: ATTEND Internal Medicine
DX: I50.20 Unspecified systolic (congestive) heart failure (principal); N18.9 Chronic kidney disease, unspecified; Z79.01 Long term (current) use of anticoagulants

== ENCOUNTER → 2019-03-31 | Outpatient (REF) ==
--- NOTE | 2019-04-01 09:27 | NOCOX ---
DATE OF PROCEDURE: 03/31 to 04/01/2019 Nocturnal oximetry was performed on 03/31 to 04/01/2019. The patient was on room air during the entire study. There was minimal variability without significant hypoxia. The patient's oxygen saturation at rest was 96% with a resting heart rate of 89. There was a total recording time of 5 hours and 25 minutes of which 6 minutes and 36 seconds were excluded. There was heart rate variability ranging from 61-126, oxygen saturation ranged 88-100%. The total time spent with an oxygen saturation less than 90% was 1 minute and 2 seconds, less than 88% was 6 seconds. There was no significant time spent less than 80%. There was minimal variability throughout the evening with some disconnection from the probe without any significant hypoxia. IMPRESSION: Minimal variability without significant hypoxia.
== END ==
LOC: SKLAB2 14:55
PROVIDERS: ATTEND Internal Medicine
DX: R09.02 Hypoxemia (principal)

== ENCOUNTER 2019-04-01 16:22 | Observation (INO) | payer MEDICARE, BC, OTHER ==
[~2019-04-01] VITALS: Ht 149.9 cm; Wt 62.6 kg
[~2019-04-01 16:22] MED LIST changes: -ASPI81CH33 PO; -DETR1TAB3 PO; -DULC10SU2 PR; -ENEMENE PR; -GABA-843 PO; -MAPA325T4 PO; -MOM30SS PO; -MULTCAP PO; -OMEP-218 PO; -OMEP-221 PO; -PPD5VL ID
[2019-04-01] MEDS ORDERED: MULTCAP PO (16:39)
[2019-04-01] MEDS ORDERED: MAPA325T4 PO (16:39)
[2019-04-01] MEDS ORDERED: OMEP-221 PO (16:39)
[2019-04-01] MEDS ORDERED: DETR1TAB3 PO (16:39)
[2019-04-01 17:12] LABS: BASO # 0.1 10^3/uL (0.0-0.2); BASO % 0.7 % (0.0-1.0); EOS # 0.1 10^3/uL (0.0-0.5); EOS % 0.4 % (0.0-3.0); HEMATOCRIT 47.4 % (36.0-47.0); HEMOGLOBIN 15.1 g/dl (12.0-15.5); LYMPH # 2.4 10^3/uL (1.5-5.0); LYMPH % 19.5 % (24.0-44.0); MEAN CORPUSCULAR HEMOGLOBIN 27.4 pg (27.0-33.0); MEAN CORPUSCULAR HGB CONC 31.9 g/dl (32.0-36.5); MEAN CORPUSCULAR VOLUME 85.9 fl (80.0-96.0); MONO # 0.6 10^3/uL (0.0-0.8); MONO % 5.2 % (0.0-5.0); NEUTROPHILS % 73.6 % (36.0-66.0); PLATELET COUNT, AUTOMATED 453 10^3/uL (150-450); RED BLOOD COUNT 5.52 10^6/uL (4.00-5.40); WHITE BLOOD COUNT 12.2 10^3/uL (4.0-10.0)
[2019-04-01 17:21] LABS: INR 2.06
--- NOTE | 2019-04-01 17:41 | REP ---
CHEST, TWO VIEWS: There is no evidence of acute infiltrate. No pleural effusion is seen. The heart is normal in size. The mediastinal silhouette is unremarkable. The visualized osseous structures are intact. IMPRESSION: No acute pulmonary disease. Electronically Signed by Cody Guo MD 04/06/2019 09:56 A
[2019-04-01 17:48] LABS: CREATININE FOR GFR 1.24 MG/DL (0.55-1.30); GLOMERULAR FILTRATION RATE 45.5 (>39)
[2019-04-01 17:49] LABS: CALCIUM LEVEL 9.1 MG/DL (8.8-10.2); POTASSIUM SERUM 4.5 MEQ/L (3.5-5.1)
[2019-04-01 17:50] LABS: ALBUMIN 2.9 GM/DL (3.2-5.2); BILIRUBIN,DIRECT 0.4 MG/DL (0.0-0.2); BILIRUBIN,TOTAL 1.5 MG/DL (0.2-1.0); CK-MB VALUE MASS 4.4 NG/ML (<3.6); MB/CK RELATIVE INDEX 5.64 (< OR =4); TOTAL PROTEIN 7.4 GM/DL (6.4-8.2); TROPONIN I 0.03 NG/ML (< 0.10)
[2019-04-01 17:51] LABS: THYROID STIMULATING HORMONE 3.41 uIU/ML (0.358-3.740)
[2019-04-01] MEDS ORDERED: OMEP-218 PO (18:07)
[2019-04-01] MEDS ORDERED: MOM30SS PO (18:07)
[2019-04-01] MEDS ORDERED: ENEMENE PR (18:07)
[2019-04-01] MEDS ORDERED: PPD5VL ID (18:07)
[2019-04-01] MEDS ORDERED: AMIL5TAB4 PO (18:07)
[2019-04-01] MEDS ORDERED: METH2.5T48 PO (18:07)
[2019-04-01] MEDS ORDERED: GABA-843 PO (18:07)
[2019-04-01] MEDS ORDERED: DULC10SU2 PR (18:07)
[2019-04-01] MEDS ORDERED: TORS20TA2 PO (18:07)
[2019-04-01] MEDS ORDERED: ELIQ5TAB PO (18:07)
[2019-04-01] MEDS ORDERED: ISOVUE-370 76% 100ML VIAL (Q9967) As Ordered ONE (18:07)
--- NOTE | 2019-04-01 19:08 | REPVR ---
PROCEDURE INFORMATION: Exam: CT Angiography Chest With Contrast Exam date and time: 04/01/2019 6:24 PM Age: 68 years old Clinical history: Shortness of breath; Additional info: SOB, known dvt R/O pe TECHNIQUE: Imaging protocol: Computed tomographic angiography of the chest with intravenous contrast. 3D rendering: MIP reconstructed images were created and reviewed. Radiation optimization: All CT scans at this facility use at least one of these dose optimization techniques: automated exposure control; mA and/or kV adjustment per patient size (includes targeted exams where dose is matched to clinical indication); or iterative reconstruction. Contrast material: ISOVUE 370; Contrast volume: 75 ml; Contrast route: IV COMPARISON: CT Chest without contrast 03/16/2019 11:18 AM FINDINGS: Abnormal intraluminal filling defects are present within distal main pulmonary arteries and proximal bilateral upper lobe and proximal bilateral lower lobe segmental branches. No evidence of main pulmonary artery clot, right heart strain or pleural effusion. No thoracic aortic aneurysm or dissection. Small, nonspecific mediastinal nodes are present. No pneumothorax. Pulmonary vascular/interstitial pattern does not suggest active pulmonary edema. No suspicious lung mass or air space process. No central endobronchial lesion. Infrarenal IVC filter is present. Small hiatal hernia is present. Gallbladder is surgically absent. Bony structures show no acute fracture or destructive process. IMPRESSION: Acute pulmonary emboli within the distal main pulmonary arteries and upper and lower lobe segmental branches without evidence of right heart strain or pulmonary infarct. No other acute or concerning focal intrathoracic abnormality. Findings were discussed by telephone with ADI Kinsey on 04/01/2019 7:08 PM EST, to expedite further management. Electronically signed by: Marcos Stevenson On 04/01/2019 19:08:36 PM
[2019-04-01] MEDS ORDERED: ASPIRIN 81 MG CHEW TABLET PO STA (19:53)
[2019-04-01] MEDS ORDERED: NITROGLYCERIN 0.4 MG SUBL TABLET SL PRN (20:00)
[2019-04-01] MEDS ORDERED: ACETAMINOPHEN TAB 650MG DOSE (2X325MG) PO PRN (20:00)
[2019-04-01 20:50] LABS: CHOLESTEROL RISK RATIO 3.923 (<5)
[2019-04-01] MEDS ORDERED: GABAPENTIN 300 MG CAP PO SCH (21:00)
[2019-04-01 21:10] VITALS: BP 101/57
--- NOTE | 2019-04-01 23:37 | HPEPDOC ---
[facility] Medical History & Physical Date of Admission Apr 01, 2019 Date of Service: Apr 01, 2019 Primary Care Physician: Jr Cosme Collins Attending Physician: RAMONITA GEORGE MD History and Physical TIME OF SERVICE: 8:25 PM CHIEF COMPLAINT:, Shortness of breath HISTORY OF PRESENT ILLNESS: This is a 68-year-old female who was at [facility] for rehabilitation. While walking with her physical therapist, she developed shortness of breath. She also reports a runny nose, and having an episode where feeling like things "went went bowden" while going to the bathroom. She denies losing consciousness, and denies falling. She also reports vomiting without blood 4 times prior to arrival in the ER. She denies having chest pain, denies having cough, denies having fevers or chills, denies having diarrhea, or denies having lower extremity swelling. Dr. Walters called Dr. Patton to discuss the EKG findings; he recommended admission for serial troponins and EKGs. During her last admission in February, the patient was diagnosed with bilateral DVT. At the time CT of the chest, done without contrast because of renal impairment, did not identify PEs. The patient was started on a NOAC and and IVC filter was placed. Today CTA chest done with contrast identified acute PEs but no heart strain; the trop was wnl but the BNP was elevated. discussed these findings with who felt that no additional testing was needed bc the patient was already on NOAC with an IVC filter. REVIEW OF SYSTEMS: 12 point review of systems negative except as listed in HPI PAST MEDICAL/ SURGICAL HISTORY: Cor pulmonale/ pulmonary hypertension Bilateral DVT Cardiorenal syndrome / CKD 2/3 Fatty liver Sjogren Syndrome Ankylosing spondylitis Fibromyalgia. Gout GERD Chronic hypertension. Dyslipidemia. Depression. Prediabetes History of vitamin D deficiency History of MRSA bacteremia. History of frequent UTIs. Status post right wrist surgery. Status post cholecystectomy Status post hysterectomy with BSO Status post latter suspension surgery SOCIAL HISTORY: She does not smoke. She is FAMILY HISTORY: Father had arthritis, stomach polyps, of kidney failure, hypertension, and heart disease. Mother had arthritis, numerous strokes, hypertension, and heart disease ALLERGIES: Please see below. HOME MEDICATIONS: Please see below. PHYSICAL EXAMINATION: VITAL SIGNS: Please see below. GEN: well nourished / well developed/ NAD INTEGUMENT: not flushed/ not jaundice HEENT: normocephalic / atraumatic / neck is short /mucus membranes moist and pink CVS: RRR/NMRG/ no JVP / radial pulses intact / lower extremity edema LUNGS: able to speak full sentences without stopping to take a breath / no coughing / lungs are clear to auscultation bilaterally on room air ABDOMEN: the abdomen is soft & not tender with palpation MSK/EXTREMITIES: range of motion intact in all 4 extremities NEURO: CN 2-12 are grossly intact / speech is not dysarthric PSYCH: alert and oriented to person place and time/ able to understand and follow all commands LABORATORY DATA: See below. IMAGING: Chest x-ray " IMPRESSION: No acute pulmonary disease." CT chest " IMPRESSION: Acute pulmonary emboli within the distal main pulmonary arteries and upper and lower lobe segmental branches without evidence of right heart strain or pulmonary infarct. No other acute or concerning focal intrathoracic abnormality. " ASSESSMENT: Ms. Ruggiero is a 68-year-old female with a past medical history of bilateral DVT (Elquis/IVC F), cor pulmonale/ pulmonary hypertension, CKD II/III, fatty liver, Sjogren syndrome, ankylosing spondylitis, fibromyalgia, gout, and chronic hypertension who will be admitted for observation to rule out ACS. PLAN: 1. Dyspnea. The dyspnea may be 2/2 subacute PE or CTPH vs an ACS equivalent vs 2/2 a viral infection The EKG showed normal sinus rhythm with a heart rate of 94 and T-wave inversions in V1 through V4. The echo done in July 2018 showed moderate TVR moderate AV stenosis and RV failure. The CT findings are as above Plan: Admit to medical floor/telemetry/follow-up serial troponins and EKGs/give 1 dose of aspirin right now/nitroglycerin when necessary for chest pain/follow- up respiratory panel lipids, A1c, and ABG / if the work up is negative the daytime team may consider ordering a home O2 eval 2. Bilateral DVT/PE. Status post IVC filter It is unclear if the patient had PEs during the previous diagnosis because the CT of the chest was done without contrast Plan: Continue with Elquis / the daytime team may consider an outpatient heme consult to determine if the patient needs to be switched to warfarin 3. Mild asymptomatic hyponatremia. Plan: Follow-up repeat BMP in the morning 4. Chronic hypertension. Plan: Resume home meds 5. Sjogren Syndrome / Ankylosing spondylitis / Fibromyalgia Plan: Resume home meds 6. Gout Plan: Resume home meds 7. CKD 2/3 She is at her baseline Plan: Follow-up BMP in the morning 8. GERD Plan: Resume home meds 9 .Dyslipidemia. Plan: Resume home meds 10. Depression. Plan: Resume home meds She does need to do prophylaxis because she is on a NOAC Disposition: likely back to [facility] keeps home after less than 2 midnight's stay . This consult has been placed for assistance in transferring back Vital Signs Vital Signs Date Time Temp Pulse Resp B/P (MAP) Pulse Ox O2 Delivery O2 Flow Rate FiO2 04/01/19 20:52 97.9 90 19 139/87 (104) 97 04/01/19 18:37 Room Air Laboratory Data Labs 24H Laboratory Tests 2 04/01/19 16:58: Immature Granulocyte % (Auto) 0.6, Neutrophils (%) (Auto) 73.6H, Lymphocytes (%) (Auto) 19.5L, Monocytes (%) (Auto) 5.2H, Eosinophils (%) (Auto) 0.4, Basophils (%) (Auto) 0.7, Neutrophils # (Auto) 9.0H, Lymphocytes # (Auto) 2.4, Monocytes # (Auto) 0.6, Eosinophils # (Auto) 0.1, Basophils # (Auto) 0.1, Nucleated Red Blood Cells % (auto) 0.0, Prothrombin Time 23.0H, Prothromb Time International Ratio 2.06, Anion Gap 7L, Glomerular Filtration Rate 45.5, Calcium Level 9.1, Total Bilirubin 1.5H, Direct Bilirubin 0.4H, Aspartate Amino Transf (AST/SGOT) 60H, Alanine Aminotransferase (ALT/SGPT) 35, Alkaline Phosphatase 139H, Total Creatine Kinase 78, Creatine Kinase MB 4.4H, Creatine Kinase MB Relative Index 5.64H, Troponin I 0.03, XV-Vcm-K-Type Natriuretic Peptide 2477H, Total Protein 7.4, Albumin 2.9L, Albumin/Globulin Ratio 0.64L, Triglycerides Level 135, Total Cholesterol 153, LDL Cholesterol 87.0, Non-HDL Cholesterol (LDL + VLDL) 114, Total HDL Cholesterol 39L, Cholesterol/HDL Ratio 3.923, Thyroid Stimulating Hormone (TSH) 3.410 04/01/19 22:14: Troponin I 0.05# CBC/BMP Laboratory Tests 04/01/19 16:58 Home Medications Scheduled Allopurinol (Allopurinol) 100 Mg Tab, 100 MG PO QHS Amiloride HCl (Amiloride HCl) 5 Mg Tablet, 5 MG PO DAILY Apixaban (Eliquis) 5 Mg Tablet, 5 MG PO BID Aspirin (Aspirin) 81 Mg Tab.chew, 81 MG PO DAILY for pain Atorvastatin Calcium (Atorvastatin Calcium) 20 Mg Tab, 20 MG PO DAILY Baclofen (Baclofen) 10 Mg Tab, 10 MG PO QHS Folic Acid (Folic Acid) 1 Mg Tab, 1 MG PO DAILY Gabapentin (Gabapentin) 300 Mg Capsule, 300 MG PO QHS Methotrexate Sodium (Methotrexate) 2.5 Mg Tablet, 5 MG PO QWEEK SUNDAYS Multivitamin (Multivitamins) 1 Each Capsule, 1 CAP PO DAILY Omeprazole (Omeprazole) 20 Mg Capsule.dr, 20 MG PO DAILY Tolterodine Tartrate (Detrol) 1 Mg Tablet, 1 MG PO BID Torsemide (Torsemide) 20 Mg Tablet, 20 MG PO DAILY PUT ON HOLD ON 04/01/19 UNTIL 04/03/19 Tuberculin Ppd (Tubersol) 5 Tub Unit/0.1 Ml Vial, 5 UNITS ID ASDIRECTED TO RECEIVE 04/20/19 Scheduled PRN Acetaminophen (Mapap) 325 Mg Tablet, 650 MG PO Q4H PRN for PAIN Bisacodyl (Dulcolax) 10 Mg Supp.rect, 10 MG ME DAILY PRN for CONSTIPATION Milk Of Magnesia (Milk of Magnesia) 2,400 Mg/10 Ml Oral.susp, 10 ML PO DAILY PRN for CONSTIPATION Sodium Phosphate,[place]-Dibasic (Enema) 133 Ml Enema, 1 LINDA ME DAILY PRN for CONSTIPATION Allergies Coded Allergies: Penicillins (Verified Allergy, Intermediate, Rash, 03/16/19) linezolid (Verified Allergy, Intermediate, Rash, Vomitting, 03/16/19) meperidine (Verified Adverse Reaction, Intermediate, Hallucinations, Vomitting, 03/16/19) A-FIB/CHADSVASC A-FIB History Current/History of A-Fib/PAF?: No Current PO Anticoag Therapy: No RAMONITA GEORGE MD Apr 01, 2019 23:37
[2019-04-01] MEDS ORDERED: ENTER DRUG NAME HERE (PATIENT'S OWN MED) PO PRN ×2 (23:45)
[2019-04-01] MEDS ORDERED: ENTER DRUG NAME HERE (PATIENT'S OWN MED) PO SCH ×4 (23:45)
[2019-04-02] MEDS ORDERED: PILL CUTTER 1 EACH XX PRN (01:45)
[2019-04-02] MEDS ORDERED: BISACODYL 5 MG TAB PO PRN (01:45)
[2019-04-02] MEDS: TOLTERODINE (DETROL) 2 MG TAB PO SCH ×2 (02:32→09:58)
[2019-04-02] MEDS: APIXABAN 5 MG TAB (ELIQUIS) PO SCH ×2 (02:32→09:57)
[2019-04-02 03:30] LABS: HEMOGLOBIN A1c 5.7 %
[2019-04-02 06:00] VITALS: BP 100/62
[2019-04-02 06:15] LABS: HEMATOCRIT 40.9 % (36.0-47.0); HEMOGLOBIN 13.7 g/dl (12.0-15.5); MEAN CORPUSCULAR HEMOGLOBIN 28.2 pg (27.0-33.0); MEAN CORPUSCULAR HGB CONC 33.5 g/dl (32.0-36.5); MEAN CORPUSCULAR VOLUME 84.2 fl (80.0-96.0); PLATELET COUNT, AUTOMATED 385 10^3/uL (150-450); RED BLOOD COUNT 4.86 10^6/uL (4.00-5.40); WHITE BLOOD COUNT 10.4 10^3/uL (4.0-10.0)
[2019-04-02 06:48] LABS: CALCIUM LEVEL 8.5 MG/DL (8.8-10.2); CREATININE FOR GFR 1.02 MG/DL (0.55-1.30); POTASSIUM SERUM 3.6 MEQ/L (3.5-5.1); TROPONIN I 0.06 NG/ML (< 0.10)
[2019-04-02] MEDS ORDERED: OMEPRAZOLE 20 MG CAP PO SCH (09:00)
[2019-04-02] MEDS ORDERED: ENTER DRUG NAME HERE (PATIENT'S OWN MED) PR SCH (09:00)
[2019-04-02] MEDS ORDERED: ATORVASTATIN 20 MG TAB PO SCH (09:00)
[2019-04-02] MEDS ORDERED: aMILoride 5 MG TAB PO SCH (09:00)
[2019-04-02] MEDS ORDERED: ENTER DRUG NAME HERE (PATIENT'S OWN MED) PO SCH ×5 (09:00→21:00)
[2019-04-02] MEDS ORDERED: ASPI81CH33 PO (12:33)
--- NOTE | 2019-04-02 14:51 | DS.PDOC ---
Discharge Summary General Date of Admission Apr 01, 2019 at 16:23 Date of Discharge 04/02/19 Discharge Summary PROCEDURES PERFORMED DURING STAY: [None]. ADMITTING DIAGNOSES: 1. Dypsnea 2. hx recent b/l DVT 3. Mild asymptomatic hyponatremia 4. HTN 5. Sjogren Syndrome/Ankylosing Spondylitis/Fibromyalgia 6. gout 7. CKD 2/3 8. GERD 9. HLD 10. Depression DISCHARGE DIAGNOSES: 1. Dypsnea r/o ACS 2. hx recent b/l DVT 3. Mild asymptomatic hyponatremia 4. HTN 5. Sjogren Syndrome/Ankylosing Spondylitis/Fibromyalgia 6. gout 7. CKD 2/3 8. GERD 9. HLD 10. Depression 11. Acute PE COMPLICATIONS/CHIEF COMPLAINT: Dyspnea. HISTORY OF PRESENT ILLNESS: "This is a 68-year-old female who was at [facility] for rehabilitation. While walking with her physical therapist, she developed shortness of breath. S he also reports a runny nose, and having an episode where feeling like things "went went bowden" while going to the bathroom. She denies losing consciousness, and denies falling. She also reports vomiting without blood 4 times prior to arrival in the ER. She denies having chest pain, denies having cough, denies having fevers or chills, denies having diarrhea, or denies having lower extremity swelling. Dr. Walters called Dr. Patton to discuss the EKG findings; he recommended admission for serial troponins and EKGs. During her last admission in February, the patient was diagnosed with bilateral DVT. At the time CT of the chest, done without contrast because of renal impairment, did not identify PEs. The patient was started on a NOAC and and IVC filter was placed. Today CTA chest done with contrast identified acute PEs but no heart strain; the trop was wnl but the BNP was elevated. discussed these findings with who felt that no additional testing was needed bc the patient was already on NOAC with an IVC filter." HOSPITAL COURSE: Patient was found to have acute PE on CT angio and already have been on Eliquis with IVC Filter. Of note, patient was recently admitted about 2 weeks prior and found to have b/l DVT with suspicion for PE but unable to perform CT angio due to impair kidney function. Suspect that the PE had been present already at that time that was not diagnosed, fortunately has been on treatment for VTE. In addition, EKG noted to have T wave inversions in anterior leads and admitted for monitoring serial troponins. Troponin remains negative, patient denies any chest pain without significant changes in EKG. Discussed with cardiology Dr. Patton, will discharge patient to follow up with cardio outpatient and start patient on Aspirin as well. DISCHARGE MEDICATIONS: Please see below. ALLERGIES: Please see below. PHYSICAL EXAMINATION ON DISCHARGE: General: No acute distress, Alert Eyes: Normal sclera, EOMI, SHANTAL HENT: Atraumatic, neck supple, moist mucous membranes Cardiovascular: Normal rate, normal rhythm. No murmurs appreciated. Pulmonary: Clear to auscultation b/l, no wheezing GI: Soft, nontender, nondistended Skin: Warm and dry Neuro: CN grossly intact. No focal deficits. Strengths equal b/l. Psych: oriented x 3 LABORATORY DATA: Please see below. IMAGING: CT angio chest- IMPRESSION: Acute pulmonary emboli within the distal main pulmonary arteries and upper and lower lobe segmental branches without evidence of right heart strain or pulmonary infarct. No other acute or concerning focal intrathoracic abnormality. ACTIVITY: [As tolerated]. DIET: Regular DISCHARGE PLAN: c/w Eliquis in addition to Aspirin f/u PMD and Cardiology DISPOSITION: 01 Home, Self-Care. DISCHARGE INSTRUCTIONS: c/w Eliquis in addition to Aspirin f/u PMD and Cardiology ITEMS TO FOLLOWUP ON ON OUTPATIENT: None DISCHARGE CONDITION: [Stable]. TIME SPENT ON DISCHARGE: 35 minutes. Vital Signs/I&Os Vital Signs Date Time Temp Pulse Resp B/P (MAP) Pulse Ox O2 Delivery O2 Flow Rate FiO2 04/02/19 06:00 98.0 82 16 100/62 (75) 96 04/01/19 21:10 Room Air I&O- Last 24 Hours up to 6 AM 04/02/19 06:00 Intake Total 300 ml Output Total 0 ml Balance 300 ml Laboratory Data Labs 24H Laboratory Tests 2 04/01/19 16:58: Immature Granulocyte % (Auto) 0.6, Neutrophils (%) (Auto) 73.6H, Lymphocytes (%) (Auto) 19.5L, Monocytes (%) (Auto) 5.2H, Eosinophils (%) (Auto) 0.4, Basophils (%) (Auto) 0.7, Neutrophils # (Auto) 9.0H, Lymphocytes # (Auto) 2.4, Monocytes # (Auto) 0.6, Eosinophils # (Auto) 0.1, Basophils # (Auto) 0.1, Nucleated Red Blo od Cells % (auto) 0.0, Prothrombin Time 23.0H, Prothromb Time International Ratio 2.06, Anion Gap 7L, Glomerular Filtration Rate 45.5, Estimated Mean Plasma Glucose 117H, Hemoglobin A1c 5.7, Calcium Level 9.1, Total Bilirubin 1.5H, Direct Bilirubin 0.4H, Aspartate Amino Transf (AST/SGOT) 60H, Alanine Aminotransferase (ALT/SGPT) 35, Alkaline Phosphatase 139H, Total Creatine Kinase 78, Creatine Kinase MB 4.4H, Creatine Kinase MB Relative Index 5.64H, Troponin I 0.03, CL-Zmd-T-Type Natriuretic Peptide 2477H, Total Protein 7.4, Albumin 2.9L, Albumin/Globulin Ratio 0.64L, Triglycerides Level 135, Total Cholesterol 153, LDL Cholesterol 87.0, Non-HDL Cholesterol (LDL + VLDL) 114, Total HDL Cholesterol 39L, Cholesterol/HDL Ratio 3.923, Thyroid Stimulating Hormone (TSH) 3.410 04/01/19 22:14: Troponin I 0.05# 04/02/19 01:08: Troponin I 0.06 04/02/19 06:01: Nucleated Red Blood Cells % (auto) 0.0, Anion Gap 9, Glomerular Filtration Rate 57.0, Calcium Level 8.5L, Troponin I 0.06 CBC/BMP Laboratory Tests 04/01/19 16:58 04/02/19 06:01 Microbiology Microbiology 04/02/19 Respiratory Virus Panel (PCR) ([facility]) - Final, Complete Discharge Medications Scheduled Allopurinol (Allopurinol) 100 Mg Tab, 100 MG PO QHS, (Reported) Amiloride HCl (Amiloride HCl) 5 Mg Tablet, 5 MG PO DAILY, (Reported) Apixaban (Eliquis) 5 Mg Tablet, 5 MG PO BID, (Reported) Aspirin (Aspirin) 81 Mg Tab.chew, 81 MG PO DAILY for pain Atorvastatin Calcium (Atorvastatin Calcium) 20 Mg Tab, 20 MG PO DAILY, (Reported) Baclofen (Baclofen) 10 Mg Tab, 10 MG PO QHS, (Reported) Folic Acid (Folic Acid) 1 Mg Tab, 1 MG PO DAILY, (Reported) Gabapentin (Gabapentin) 300 Mg Capsule, 300 MG PO QHS, (Reported) Methotrexate Sodium (Methotrexate) 2.5 Mg Tablet, 5 MG PO QWEEK, (Reported) SUNDAYS Multivitamin (Multivitamins) 1 Each Capsule, 1 CAP PO DAILY, (Reported) Omeprazole (Omeprazole) 20 Mg Capsule.dr, 20 MG PO DAILY, (Reported) Tolterodine Tartrate (Detrol) 1 Mg Tablet, 1 MG PO BID, (Reported) Torsemide (Torsemide) 20 Mg Tablet, 20 MG PO DAILY, (Reported) PUT ON HOLD ON 04/01/19 UNTIL 04/03/19 Tuberculin Ppd (Tubersol) 5 Tub Unit/0.1 Ml Vial, 5 UNITS ID ASDIRECTED, (Reported) TO RECEIVE 04/20/19 Scheduled PRN Acetaminophen (Mapap) 325 Mg Tablet, 650 MG PO Q4H PRN for PAIN, (Reported) Bisacodyl (Dulcolax) 10 Mg Supp.rect, 10 MG UT DAILY PRN for CONSTIPATION, (Reported) Milk Of Magnesia (Milk of Magnesia) 2,400 Mg/10 Ml Oral.susp, 10 ML PO DAILY PRN for CONSTIPATION, (Reported) Sodium Phosphate,[place]-Dibasic (Enema) 133 Ml Enema, 1 LINDA UT DAILY PRN for CONSTIPATION, (Reported) Allergies Coded Allergies: Penicillins (Verified Allergy, Intermediate, Rash, 03/16/19) linezolid (Verified Allergy, Intermediate, Rash, Vomitting, 03/16/19) meperidine (Verified Adverse Reaction, Intermediate, Hallucinations, Vomitting, 03/16/19) ISAIAH BAÑUELOS MD Apr 02, 2019 14:51
--- NOTE | 2019-04-02 17:55 | ECGEPIP ---
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
[2019-04-02] MEDS ORDERED: BACLOFEN 10 MG TAB PO SCH (21:00)
[2019-04-02] MEDS ORDERED: allopurinoL 100 MG TAB PO SCH (21:00)
--- NOTE | 2019-04-02 23:18 | ECGEPIP ---
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
[2019-04-03] MEDS ORDERED: PNEUMOCOCCAL VACCINE 0.5ML SYRINGE(90732) PNEUMOVAX 23 IM ONE (09:00)
[2019-04-03] MEDS ORDERED: TORSEMIDE 20 MG TAB PO SCH (09:00)
[2019-04-05] MEDS ORDERED: METHOTREXATE 2.5 MG TAB (J8610 PER 2.5MG) PO SCH (09:00)
== END 2019-04-02 13:20 | disposition home or self-care (01) ==
LOC: M ED 16:22 → M ED INP 16:23 → M MSPAV 21:11
PROVIDERS: ADMIT Internal Medicine; ATTEND Internal Medicine
DX: R06.00 Dyspnea, unspecified (principal); Z86.718 Personal history of other venous thrombosis and embolism; Z86.711 Personal history of pulmonary embolism; E87.1 Hypo-osmolality and hyponatremia; I10 Essential (primary) hypertension; M35.00 Sjogren syndrome, unspecified; M45.9 Ankylosing spondylitis of unspecified sites in spine; M79.7 Fibromyalgia; M10.9 Gout, unspecified; N18.2 Chronic kidney disease, stage 2 (mild); E78.49 Other hyperlipidemia; F32.9 Major depressive disorder, single episode, unspecified; Z79.01 Long term (current) use of anticoagulants; Z79.82 Long term (current) use of aspirin; Z79.899 Other long term (current) drug therapy; Z88.0 Allergy status to penicillin; Z88.8 Allergy status to other drugs, medicaments and biological substances
CPT/HCPCS: 36415; 71046; 71275; 80048; 80061; 80076; 82550; 82553; 83036; 83880; 84443; 84484; 85025; 85027; 85610; 87486; 87581; 87633; 87798; 93005; 93041; 94760; 99285; G0378; Q9967

== ENCOUNTER → 2019-04-01 | Outpatient (REF) ==
[2019-04-01 07:29] LABS: HEMATOCRIT 44.3 % (36.0-47.0); HEMOGLOBIN 14.2 g/dl (12.0-15.5); MEAN CORPUSCULAR HEMOGLOBIN 27.6 pg (27.0-33.0); MEAN CORPUSCULAR HGB CONC 32.1 g/dl (32.0-36.5); PLATELET COUNT, AUTOMATED 365 10^3/uL (150-450); RED BLOOD COUNT 5.15 10^6/uL (4.00-5.40); WHITE BLOOD COUNT 10.3 10^3/uL (4.0-10.0)
== END ==
LOC: SKLAB2 07:00
PROVIDERS: ATTEND Internal Medicine
DX: Z79.01 Long term (current) use of anticoagulants (principal)

== ENCOUNTER → 2019-04-01 | Outpatient (REF) ==
--- NOTE | 2019-04-01 21:34 | ECGEPIP ---
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 Rhythm change and decrease heart rate compared with 03/19/2019 Electronically Signed on 04-01-2019 21:33:31 EST by Favian West
== END ==
LOC: SKLAB2 15:10
PROVIDERS: ATTEND Internal Medicine
DX: R00.9 Unspecified abnormalities of heart beat (principal)

== ENCOUNTER → 2019-04-06 | Outpatient (REF) ==
[~2019-04-06] MED LIST changes: +ASPI81CH33 PO; +DETR1TAB3 PO; +DULC10SU2 PR; +ENEMENE PR; +GABA-843 PO; +MAPA325T4 PO; +MOM30SS PO; +MULTCAP PO; +OMEP-218 PO; +OMEP-221 PO; +PPD5VL ID
[2019-04-06 09:49] LABS: ALBUMIN 2.6 GM/DL (3.2-5.2); ALT/SGPT 23 U/L (12-78); BILIRUBIN,DIRECT 0.4 MG/DL (0.0-0.2); BLOOD UREA NITROGEN 11 MG/DL (7-18); CALCIUM LEVEL 8.8 MG/DL (8.8-10.2); CARBON DIOXIDE LEVEL 28 MEQ/L (21-32); CHLORIDE LEVEL 103 MEQ/L (98-107); CREATININE FOR GFR 0.79 MG/DL (0.55-1.30); GLOMERULAR FILTRATION RATE > 60.0 (>39); GLUCOSE, FASTING 83 MG/DL (70-100); PHOSPHORUS LEVEL 4.1 MG/DL (2.5-4.9); POTASSIUM SERUM 3.8 MEQ/L (3.5-5.1); SODIUM LEVEL 138 MEQ/L (136-145); TOTAL PROTEIN 6.1 GM/DL (6.4-8.2)
== END ==
LOC: SKLAB2 07:00
PROVIDERS: ATTEND Internal Medicine
DX: E78.5 Hyperlipidemia, unspecified (principal)

== ENCOUNTER → 2019-05-08 | Outpatient (CLI) | payer MEDICARE, BC, OTHER ==
[2019-05-08 17:21] LABS: BASO # 0.1 10^3/uL (0.0-0.2); BASO % 0.7 % (0.0-1.0); EOS # 0.2 10^3/uL (0.0-0.5); EOS % 2.7 % (0.0-3.0); HEMATOCRIT 43.3 % (36.0-47.0); HEMOGLOBIN 13.2 g/dl (12.0-15.5); LYMPH # 1.9 10^3/uL (1.5-5.0); LYMPH % 26.7 % (24.0-44.0); MEAN CORPUSCULAR HEMOGLOBIN 27.4 pg (27.0-33.0); MEAN CORPUSCULAR HGB CONC 30.5 g/dl (32.0-36.5); MEAN CORPUSCULAR VOLUME 89.8 fl (80.0-96.0); MONO % 14.2 % (0.0-5.0); NEUTROPHILS # 3.9 10^3/uL (1.5-8.5); NEUTROPHILS % 55.4 % (36.0-66.0); PLATELET COUNT, AUTOMATED 245 10^3/uL (150-450); RED BLOOD COUNT 4.82 10^6/uL (4.00-5.40)
[2019-05-08 17:42] LABS: ALBUMIN 2.9 GM/DL (3.2-5.2); BILIRUBIN,TOTAL 0.6 MG/DL (0.2-1.0); CALCIUM LEVEL 8.6 MG/DL (8.8-10.2); CREATININE FOR GFR 1.07 MG/DL (0.55-1.30); POTASSIUM SERUM 3.4 MEQ/L (3.5-5.1); TOTAL PROTEIN 6.5 GM/DL (6.4-8.2)
[2019-05-12 00:07] LABS: G6PD2 4.75 x10E6/uL (3.77-5.28); G6PD3 308 (146-376)
== END ==
LOC: M WUC 12:13
PROVIDERS: ATTEND Internal Medicine
DX: Z79.899 Other long term (current) drug therapy (principal)

== ENCOUNTER → 2019-10-13 | Outpatient (REF) ==
[~2019-10-13] MED LIST changes: +ACET325T43 PO; -MAPA325T4 PO
[2019-10-13 07:50] LABS: BLOOD UREA NITROGEN 6 MG/DL (7-18); CALCIUM LEVEL 8.3 MG/DL (8.8-10.2); CARBON DIOXIDE LEVEL 23 MEQ/L (21-32); CHLORIDE LEVEL 107 MEQ/L (98-107); GLOMERULAR FILTRATION RATE > 60.0 (>39); GLUCOSE, FASTING 86 MG/DL (70-100); POTASSIUM SERUM 3.4 MEQ/L (3.5-5.1); SODIUM LEVEL 138 MEQ/L (136-145)
== END ==
LOC: SKLAB2 10:27
PROVIDERS: ATTEND Internal Medicine
DX: E87.8 Other disorders of electrolyte and fluid balance, not elsewhere classified (principal)

== ENCOUNTER → 2019-10-20 | Outpatient (REF) ==
--- NOTE | 2019-10-20 15:13 | REP ---
Clinical: Chest pain . Comparison: 04/01/2019 . Findings: The mediastinum and cardiac silhouette are stable and within normal limits for portable technique. The lung quiles are clear without acute consolidation, effusion, or pneumothorax. Skeletal structures are intact. Impression: No acute cardiopulmonary process appreciated. Electronically Signed by Dwain Humphries MD 10/20/2019 03:05 P
[2019-10-20 15:31] LABS: HEMATOCRIT 31.2 % (36.0-47.0); MEAN CORPUSCULAR HEMOGLOBIN 30.2 pg (27.0-33.0); MEAN CORPUSCULAR HGB CONC 35.3 g/dl (32.0-36.5); MEAN CORPUSCULAR VOLUME 85.7 fl (80.0-96.0); PLATELET COUNT, AUTOMATED 290 10^3/uL (150-450); RED BLOOD COUNT 3.64 10^6/uL (4.00-5.40); WHITE BLOOD COUNT 17.5 10^3/uL (4.0-10.0)
[2019-10-20 16:01] LABS: ALBUMIN 2.1 GM/DL (3.2-5.2); ALT/SGPT 24 U/L (12-78); BILIRUBIN,TOTAL 1.5 MG/DL (0.2-1.0); BLOOD UREA NITROGEN 22 MG/DL (7-18); CALCIUM LEVEL 8.3 MG/DL (8.8-10.2); CARBON DIOXIDE LEVEL 24 MEQ/L (21-32); CHLORIDE LEVEL 105 MEQ/L (98-107); CREATININE FOR GFR 0.89 MG/DL (0.55-1.30); GLOMERULAR FILTRATION RATE > 60.0 (>39); GLUCOSE, FASTING 93 MG/DL (70-100); POTASSIUM SERUM 3.8 MEQ/L (3.5-5.1); SODIUM LEVEL 137 MEQ/L (136-145); TOTAL PROTEIN 5.1 GM/DL (6.4-8.2); TROPONIN I 0.06 NG/ML (< 0.10)
[2019-10-20 20:38] LABS: AMORPHOUS SEDIMENT MODERATE (NEGATIVE); APPEARANCE, URINE TURBID (CLEAR); BACTERIA, URINE AUTO 3+ (NEGATIVE); BILIRUBIN, URINE AUTO 1+ (NEGATIVE); BLOOD, URINE BLOOD NEGATIVE (NEGATIVE); COLOR, URINE YELLOW (YELLOW); GLUCOSE, URINE (UA) AUTO NEGATIVE (NEGATIVE); KETONE, URINE AUTO TRACE mg/dL (NEGATIVE); LEUKOCYTE ESTERASE, URINE AUTO 1+ (NEGATIVE); MUCUS, URINE MODERATE (NEGATIVE); NITRITE, URINE AUTO NEGATIVE (NEGATIVE); PROTEIN, URINE AUTO 2+ mg/dL (NEGATIVE); RBC, URINE AUTO 8 /HPF (0-3); SPECIFIC GRAVITY URINE AUTO 1.016 (1.002-1.035); SQUAMOUS EPITHELIAL CELL UR AU 0 /HPF (0-6); WBC, URINE AUTO 29 /HPF (0-3)
--- NOTE | 2019-10-22 08:40 | ECGEPIP ---
[facility] Test Date: 2019-10-20 Pat Name: BARB WHITLOCK Department: Room: - Gender: Female Bar Back: : 1950 Requested By: KAREN MARK [facility] Order Number: [id number] Reading MD: Aimee Sutton Measurements Intervals [place] Rate: 93 P: 68 RI: 126 QRS: -11 QRSD: 69 T: -70 QT: 373 QTc: 464 Interpretive Statements SINUS RHYTHM LOW QRS VOLTAGE IN PRECORDIAL LEADS NONSPECIFIC T-WAVE ABNORMALITY, POOR QUALITY BASELINE COMPARED TO 04/02/19 PRECORDIAL T WAVE INVERISONS AND INFERIOR Q WAVES ARE NO L LONGER PRESENT Electronically Signed on 10-22-2019 8:40:33 EDT by Aimee Sutton
== END ==
LOC: SKLAB2 14:23
PROVIDERS: ATTEND Nurse Practitioner Family
DX: R07.89 Other chest pain (principal)

== ENCOUNTER → 2019-10-20 | Outpatient (REF) ==
[2019-10-20 08:59] LABS: BLOOD UREA NITROGEN 24 MG/DL (7-18); CARBON DIOXIDE LEVEL 23 MEQ/L (21-32); CHLORIDE LEVEL 104 MEQ/L (98-107); CREATININE FOR GFR 0.94 MG/DL (0.55-1.30); GLOMERULAR FILTRATION RATE > 60.0 (>39); GLUCOSE, FASTING 114 MG/DL (70-100); POTASSIUM SERUM 3.6 MEQ/L (3.5-5.1); SODIUM LEVEL 139 MEQ/L (136-145)
== END ==
LOC: SKLAB2 07:00
PROVIDERS: ATTEND Internal Medicine
DX: E87.8 Other disorders of electrolyte and fluid balance, not elsewhere classified (principal)

== ENCOUNTER → 2019-10-21 | Outpatient (REF) ==
[2019-10-21 09:23] LABS: HEMOGLOBIN 11.3 g/dl (12.0-15.5); MEAN CORPUSCULAR HEMOGLOBIN 30.1 pg (27.0-33.0); MEAN CORPUSCULAR HGB CONC 34.2 g/dl (32.0-36.5); PLATELET COUNT, AUTOMATED 285 10^3/uL (150-450); RED BLOOD COUNT 3.75 10^6/uL (4.00-5.40)
== END ==
LOC: SKLAB2 07:02
PROVIDERS: ATTEND Internal Medicine
DX: R07.9 Chest pain, unspecified (principal)

== ENCOUNTER → 2019-10-22 | Outpatient (REF) ==
[2019-10-22 11:02] LABS: HEMATOCRIT 29.2 % (36.0-47.0); MEAN CORPUSCULAR HGB CONC 34.2 g/dl (32.0-36.5); MEAN CORPUSCULAR VOLUME 87.7 fl (80.0-96.0); PLATELET COUNT, AUTOMATED 210 10^3/uL (150-450); RED BLOOD COUNT 3.33 10^6/uL (4.00-5.40); WHITE BLOOD COUNT 8.5 10^3/uL (4.0-10.0)
[2019-10-22 11:33] LABS: BLOOD UREA NITROGEN 19 MG/DL (7-18); CARBON DIOXIDE LEVEL 24 MEQ/L (21-32); CHLORIDE LEVEL 105 MEQ/L (98-107); CREATININE FOR GFR 0.96 MG/DL (0.55-1.30); GLOMERULAR FILTRATION RATE > 60.0 (>39); GLUCOSE, FASTING 126 MG/DL (70-100); POTASSIUM SERUM 3.5 MEQ/L (3.5-5.1); SODIUM LEVEL 136 MEQ/L (136-145); TROPONIN I 0.09 NG/ML (< 0.10)
--- NOTE | 2019-10-22 16:03 | REP ---
Clinical: Hypoxemia. Comparison: 10/20/2019. Findings: Mediastinum and cardiac silhouette are stable. Lung quiles demonstrate chronic emphysematous changes. No focal consolidation, effusion, or pneumothorax. Skeletal structures intact. Evidence of prior cholecystectomy and IVC filter. Impression: No focal consolidation. Electronically Signed by Dwain Humphries MD 10/22/2019 09:35 A
--- NOTE | 2019-10-23 16:01 | ECGEPIP ---
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 ARTIFACT WAS PRESENT ON THE BASELINE Electronically Signed on 10-23-2019 16:01:22 EDT by Tien Patton
== END ==
LOC: SKLAB2 09:04
PROVIDERS: ATTEND Nurse Practitioner Family
DX: R09.02 Hypoxemia (principal)

== ENCOUNTER → 2019-10-24 | Outpatient (REF) ==
[~2019-10-24] MED LIST changes: +BACL10TA2; +ELIQ2.5T PO; +HYDR-3363; +MECL-86 PO; +ONDA4TAB6 PO; +PANT40TA29 PO; +REGL5TAB2 PO; +SENN18TA PO; +VITMTA PO; +ZOFR4TAB16 PO
[2019-10-24 08:29] LABS: BLOOD UREA NITROGEN 16 MG/DL (7-18); CALCIUM LEVEL 7.6 MG/DL (8.8-10.2); CARBON DIOXIDE LEVEL 27 MEQ/L (21-32); CHLORIDE LEVEL 106 MEQ/L (98-107); CREATININE FOR GFR 0.56 MG/DL (0.55-1.30); GLOMERULAR FILTRATION RATE > 60.0 (>39); GLUCOSE, FASTING 77 MG/DL (70-100); POTASSIUM SERUM 3.3 MEQ/L (3.5-5.1); SODIUM LEVEL 139 MEQ/L (136-145)
== END ==
LOC: SKLAB2 07:00
PROVIDERS: ATTEND Nurse Practitioner Family
DX: I95.9 Hypotension, unspecified (principal)

== ENCOUNTER → 2019-10-27 | Outpatient (REF) ==
[~2019-10-27] MED LIST changes: -BACL10TA2; -ELIQ2.5T PO; -HYDR-3363; -MECL-86 PO; -ONDA4TAB6 PO; -PANT40TA29 PO; -REGL5TAB2 PO; -SENN18TA PO; -VITMTA PO; -ZOFR4TAB16 PO
[2019-10-27 07:59] LABS: BLOOD UREA NITROGEN 18 MG/DL (7-18); CALCIUM LEVEL 8.2 MG/DL (8.8-10.2); CARBON DIOXIDE LEVEL 25 MEQ/L (21-32); CHLORIDE LEVEL 109 MEQ/L (98-107); CREATININE FOR GFR 0.63 MG/DL (0.55-1.30); GLOMERULAR FILTRATION RATE > 60.0 (>39); GLUCOSE, FASTING 75 MG/DL (70-100); POTASSIUM SERUM 3.9 MEQ/L (3.5-5.1); SODIUM LEVEL 141 MEQ/L (136-145)
== END ==
LOC: SKLAB2 07:00
PROVIDERS: ATTEND Internal Medicine
DX: E83.42 Hypomagnesemia (principal)

== ENCOUNTER → 2019-10-29 | Outpatient (REF) ==
[2019-10-29 10:02] LABS: BLOOD UREA NITROGEN 17 MG/DL (7-18); CARBON DIOXIDE LEVEL 22 MEQ/L (21-32); CHLORIDE LEVEL 109 MEQ/L (98-107); CREATININE FOR GFR 0.66 MG/DL (0.55-1.30); GLOMERULAR FILTRATION RATE > 60.0 (>39); GLUCOSE, FASTING 73 MG/DL (70-100); POTASSIUM SERUM 3.7 MEQ/L (3.5-5.1); SODIUM LEVEL 140 MEQ/L (136-145)
== END ==
LOC: SKLAB2 07:30
PROVIDERS: ATTEND Nurse Practitioner Family
DX: E87.6 Hypokalemia (principal)

== ENCOUNTER → 2019-10-30 | Outpatient (REF) ==
[~2019-10-30] MED LIST changes: +BACL10TA2; +ELIQ2.5T PO; +HYDR-3363; +MECL-86 PO; +ONDA4TAB6 PO; +PANT40TA3 PO; +REGL5TAB2 PO; +SENN18TA PO; +VITMTA PO; +ZOFR4TAB16 PO
== END ==
LOC: SKLAB2 07:00
PROVIDERS: ATTEND Internal Medicine
DX: Z11.2 Encounter for screening for other bacterial diseases (principal); A49.02 Methicillin resistant Staphylococcus aureus infection, unspecified site

== ENCOUNTER → 2019-11-03 | Outpatient (REF) ==
[2019-11-03 08:32] LABS: HEMATOCRIT 26.1 % (36.0-47.0); HEMOGLOBIN 8.9 g/dl (12.0-15.5); MEAN CORPUSCULAR HEMOGLOBIN 30.5 pg (27.0-33.0); MEAN CORPUSCULAR HGB CONC 34.1 g/dl (32.0-36.5); MEAN CORPUSCULAR VOLUME 89.4 fl (80.0-96.0); PLATELET COUNT, AUTOMATED 147 10^3/uL (150-450); RED BLOOD COUNT 2.92 10^6/uL (4.00-5.40); WHITE BLOOD COUNT 5.4 10^3/uL (4.0-10.0)
== END ==
LOC: SKLAB2 07:00
PROVIDERS: ATTEND Internal Medicine
DX: D64.9 Anemia, unspecified (principal)